=== PATIENT | female | born 1930 | race Caucasian/White ===

== ENCOUNTER 2016-08-14 10:03 | Inpatient (IN) ==
--- NOTE | 2016-08-14 11:18 | EKG Report ---
Stationary ECG Study [facility] ER Test Date: 08/14/2016 11:17:47 AM Pat Name: ALVIN ROJAS Department: Room: Gender: F Project Controller: : 1930 Requested by: Butch Guzman Order Number: [id number] Reading MD: GISELLA MAHARAJ Intervals [place] Rate: 78 P: 60 IN: 215 QRS: 4 QRSD: 138 T: -1 QT: 381 QTc: 414 Interpretive Statements SINUS RHYTHM WITH PROLONGED IN INTERVAL INTRAVENTRICULAR CONDUCTION DELAY POSSIBLE ANTERIOR MYOCARDIAL INFARCTION, OF INDETERMINATE AGE Electronically Signed On 08-14-16 16:34:25 CDT by GISELLA MAHARAJ [id number]
--- NOTE | 2016-08-14 11:22 | XRay Report ---
XR chest 1V portable Indication: Shortness of breath Comparison: Chest x-ray 08/08/2016 Technique: Portable AP chest was performed. Findings: The heart is stable in size, which is borderline. Atherosclerotic calcification of the aortic knob is present. Small hiatal hernia is not excluded. Pulmonary vasculature demonstrates no specific abnormality. Hilar structures demonstrate fairly symmetric appearance. The lungs demonstrate opacification of the left lung base unchanged comparison study that likely in part reflects over shadowing of left-sided breast implant. Surgical changes left axilla appear stable. Bones and soft tissues demonstrate no evidence of acute pathology. Impression: 1. Stable chest. No specific evidence of acute pathology. 08/14/2016 11:19 AM PROCEDURE INTERPRETED AT [facility] DEPARTMENT OF RADIOLOGY Final Report Signed by: Dr. Wicho Schreiber
[2016-08-14 11:28] LABS: Basophils % 0.3 % (0.0-0.8); Eosinophils % 0.7 % (0.00-10.9); Hematocrit 26.2 VOL% (35.7-47.0); Hemoglobin 8.3 GM/DL (12.0-16.0); Immature Granulocytes % 3.5 %; Lymphocytes # 1.1 10*3/uL (1.4-4.0); Lymphocytes % 18.5 % (21.3-54.2); Mean Corpuscular HGB Conc 31.7 GM/DL (32-36); Mean Corpuscular Hemoglobin 28 PG (27-34); Mean Corpuscular Volume 87.3 FL (87-102); Monocytes # 0.5 10*3/uL (0.11-0.8); Monocytes % 8.4 % (1.7-12.7); NRBC # 0.02 10*3/uL; Neutrophils # 3.9 10*3/uL (1.4-7.4); Neutrophils % 68.6 % (38.7-73.9); Platelet Count 198 T/CUMM (130-400); Red Cell Distribution Width 18.7 % (9.3-17.3); White Blood Count 5.7 T/CUMM (4-12)
[2016-08-14 11:35] LABS: Albumin 2.2 G/DL (3.4-5.0); Bilirubin,Total 0.5 MG/DL (0.2-1.0); Calcium 8.7 MG/DL (8.5-10.1); Osmolality,Calculated 274.8 MOS/KG (273-304); Potassium 3.9 MMOL/L (3.5-5.1); Total Protein 4.8 G/DL (6.4-8.3)
[2016-08-14] MEDS ORDERED: ACETAMINOPHEN 325 MG TABLET PO ONE (11:36)
[2016-08-14 11:38] LABS: INR 1.1; PT Patient Result 11.4 SECS
[2016-08-14] MEDS ORDERED: ACETAMINOPHEN 325 MG TABLET ONE (11:40)
[2016-08-14 11:51] LABS: Hypochromasia 1+; Lymphocytes 19 % (20-55); Microcytosis 1+; Ovalocytes Few; Segmented Neutrophils 75 % (50-85); Total Cells Counted 100
[2016-08-14] MEDS ORDERED: MORPHINE 2 MG/1 ML SYRINGE IV PRN (12:33)
[2016-08-14] MEDS ORDERED: ONDANSETRON 4 MG/2 ML VIAL IV PRN (12:33)
[2016-08-14] MEDS ORDERED: SODIUM CHLORIDE 0.9% 250 ML IV PRN (12:33)
--- NOTE | 2016-08-14 13:56 | Emergency Department Note ---
Fredrick Dai Manpreet, am scribing for, and in the presence of, Jroge Green MD 10:28. Peter Dai Doug C, MD, personally performed the services described in this documentation, ascribed by Ish Alcala in my presence, and it is both accurate and complete [id number] . Arrival - Arrival Chief Complaint: GI Bleed/Rectal Stated Complaint: low hematocrit ED Nursing Triage Note: Patient with GI Bleed and current HH 7 AND 24. She was evaluated last weekend with same complaint. Mode of Arrival: Stretcher Limitations: No Limitations Source: Patient, Family - History of Present Illness HPI Narrative: Patient's 86-year-old white female sent from [place] [facility] with history of dropping hemoglobin and hematocrit. Patient was found to have hematocrit 24% on recent lab work of 08/13/2016. Patient states has not had any blood in her stool that she is aware of. She is not having any diarrhea tells me she does have history of constipation. She has a past medical history of CVA and had been on Coumadin in the past but no longer is taking that. She denies history of diverticulitis or colonic polyps. She denies any rectal pain. Onset (ago): week(s) Consistency: intermittent Allergies/Adverse Reactions: Allergies Allergy/AdvReac Type Severity Reaction Status Date / Time fluticasone [From Flonase] AdvReac Unknown/Unable Verified 06/18/16 08:57 to obtain Home Medications: Home Medications Medication Instructions Recorded Confirmed Type Levothyroxine Tab [Synthroid Tab] 150 mcg PO DAILY 09/10/15 08/14/16 History Tiagabine HCl [Gabitril] 4 mg PO BEDTIME 09/10/15 08/14/16 History Tobramycin/Dexamethasone 1 drop BOTH EYES TID 09/11/15 08/14/16 History [Tobramycin/Dexamethasone Oph Susp] Acetaminophen Tab [Tylenol Tab] 650 mg PO Q4H PRN 08/08/16 08/14/16 History Cetirizine Tab [ZyrTEC Tab] 10 mg PO DAILY 08/08/16 08/14/16 History Gabapentin 100 mg PO BID 08/08/16 08/14/16 History Insulin Regular, Human [NovoLIN R] See Protocol SUBCUT DAILY PRN 08/08/16 History Lisinopril 20 mg PO DAILY 08/08/16 08/14/16 History PARoxetine HCl [Paxil] 30 mg PO DAILY 08/08/16 08/14/16 History Polyvinyl Alcohol [Artificial 15 ml BOTH EYES DAILY PRN 08/08/16 08/14/16 History Tears] amLODIPine [Norvasc] 5 mg PO DAILY 08/08/16 08/14/16 History clonazePAM TAB [KlonoPIN] 0.25 mg PO BID 08/08/16 08/14/16 History hydroCHLOROthiazide 12.5 mg PO MOWEFR 08/08/16 08/14/16 History [Hydrochlorothiazide] Loteprednol Etabonate 0.2% 1 drop BOTH EYES BID 08/14/16 08/14/16 History Suspension Opth Melatonin 6 mg PO BEDTIME 08/14/16 08/14/16 History Review of System - Review of System 12 point system: reviewed and no additional remarkable complaints except as stated - Review of System Constitutional: Absent: chills, diaphoresis, fever Respiratory: Absent: respiratory distress Cardiovascular: Absent: chest pain Gastrointestinal: Present: abdominal pain (Left sided), constipation, hematochezia. Absent: nausea, vomiting, diarrhea Genitourinary female: Present: other (Urinary Incontinence). Absent: dysuria, hematuria Musculoskeletal: Absent: back pain Medical,Surgical,& Family Hx - Medical History Cardio: History of: Hypertension Psychological: History of: Anxiety Disorders Neurology: History of: Cerebrovascular Accident, TIA HEENT: History of: Ear Problem ([place]) Endocrine: History of: Diabetes Mellitus (NIDDM), Thyroid Disorder (Graves disease) Respiratory: History of: Pneumonia Genitourinary: History of: Recurring Urinary Tract Infections - Surgical History HEENT Surgeries: Surgical HX of: Thyroid Surgery - Family History Family History: Reports;: Family Cancer, Family Diabetes, Family Heart Disease, Family Hypertension - Social History Smoking Status: Never smoker Frequency of Alcohol Use: None Type of Drug Use: None Exam Vital Signs: Vital Signs Temperature 97.3 F L 08/14/16 10:04 Pulse Rate 83 08/14/16 10:04 Respiratory Rate 16 08/14/16 10:04 Blood Pressure 106/53 08/14/16 10:04 O2 Sat by Pulse Oximetry 97 08/14/16 10:04 - General General appearance: alert - Head Head exam: Present: atraumatic, normocephalic, normal inspection - Eye Eye exam: Present: normal appearance, PERRL, EOMI - ENT ENT exam: Present: normal exam, normal oropharynx, mucous membranes moist, TM's normal bilaterally - Neck Neck exam: Present: normal inspection, full ROM, trachea midline. Absent: tenderness - Chest Chest inspection: Present: normal inspection, symmetric chest wall rise. Absent : tenderness - Respiratory Respiratory exam: Present: normal lung sounds bilaterally. Absent: respiratory distress - Cardiovascular Cardiovascular exam: Present: regular rate, normal rhythm, normal heart sounds. Absent: murmur, rubs, gallop - Abdominal Exam Abdominal exam: Present: tenderness (Tenderness LQ), normal bowel sounds. Absent: soft, distention - Extremities Exam Extremities exam: Present: normal inspection, full ROM. Absent: tenderness - Back Exam Back exam: Present: normal inspection, full ROM. Absent: tenderness - Neurological Exam Neurological exam: Present: alert, oriented X3, CN II-XII intact, motor sensory deficit (Left hemiplegia) - Psychiatric Psychiatric exam: Present: normal affect, normal mood - Skin Skin exam: Present: warm, dry, intact, normal color. Absent: pallor Course Course Narrative: Patient's clinical presentation, laboratory and radiographic findings were discussed with Dr. Yovanny Luke who is covering for Dr. Jemma Leon. Patient will be admitted to her services. Results - Labs CBC & BMP: 08/14/16 10:52 08/14/16 10:52 Lab Results: I have reviewed the patients labs Labs: Laboratory Tests 08/14/16 10:52 WBC 5.7 RBC 3.00 L Hgb 8.3 L Hct 26.2 L MCHC 31.7 L RDW 18.7 H MPV 9.0 L Lymph % (Auto) 18.5 L Lymph # (Auto) 1.1 L Laboratory Tests 08/14/16 08/14/16 08/14/16 10:38 10:52 10:52 INR 1.1 PT Patient/Control Mix 11.4 Circ Anticoag PTT 25.0 Sodium 137 Potassium 3.9 Chloride 103 Carbon Dioxide 26 Glucose 159 H Total Protein 4.8 L Albumin 2.2 L Albumin/Globulin Ratio 0.8 L Blood Type A POSITIVE Antibody Screen Negative Laboratory Tests 08/14/16 10:52 WBC 5.7 RBC 3.00 L Hgb 8.3 L Hct 26.2 L MCHC 31.7 L RDW 18.7 H MPV 9.0 L Lymph % (Auto) 18.5 L Lymph # (Auto) 1.1 L Lymphocytes 19 L - EKG EKG results: interpreted by LAWSON, sinus rhythm (78 bpm), no acute changes - Diagnostic Findings Procedure: Chest x-ray: report reviewed by me (1. Stable chest. No specific evidence of acute pathology.) Disposition Clinical Impression: Symptomatic anemia, GI bleeding Case discussed with: patient, patient's family Disposition: Still a Patient Condition: Stable Time of Disposition: 12:29
[2016-08-14] MEDS: SODIUM CHLORIDE 0.9% 1,000 ML IV SCH (14:38)
[2016-08-14] MEDS: DESITIN 4OZ/NYSTATIN 15 GRAM MIXTURE PASTE TOP SCH ×2 (17:50→21:00)
--- NOTE | 2016-08-14 18:17 | Family Practice History&Phys ---
Assessment and Plan (1) GI bleeding Status: Acute Assessment and plan: 08/14/2016: We will transfuse her crit goes any lower, parameters have been set. We will get a GI consult. She is not on Coumadin at this time and certainly will hold any or any other anticoagulant Current Visit: Yes (2) Symptomatic anemia Status: Acute Assessment and plan: 08/14/2016: We will transfuse based on parameters already set Current Visit: Yes (3) Altered mental status Status: Acute Assessment and plan: 08/14/2016: This is probably related to her anemic state. Current Visit: No (4) GI bleed Status: Acute Current Visit: No History of Present Illness Chief complaint: Weakness, anemia. History of present illness: Ms. Jenkins is a 86 year old female Who is a DNR and comes from the [facility]. She has been feeling very weak and it was noted a few days ago that her hematocrit was about 24. She historically has been on Coumadin but has not been on it lately and her INR is 1.1 today. She was previously on Coumadin for a history of CVA and she has now total left-sided paralysis. She is very alert and oriented and has basically full mental capacities and she is capable of using her right arm and leg. There was some concern that he may have had a GI bleed in the [facility] and although she does not report this, I did do a Hemoccult stool in the emergency room and it was strongly positive. Her hematocrit here is 25. At this time my plan is to go ahead and admit her, transfuse her if creatinine goes any lower and I get a GI consult on her. Please see history below Home Medications Medication Instructions Recorded Confirmed Type Levothyroxine Tab [Synthroid Tab] 150 mcg PO DAILY 09/10/15 08/14/16 History Tiagabine HCl [Gabitril] 4 mg PO BEDTIME 09/10/15 08/14/16 History Tobramycin/Dexamethasone 1 drop BOTH EYES TID 09/11/15 08/14/16 History [Tobramycin/Dexamethasone Oph Susp] Acetaminophen Tab [Tylenol Tab] 650 mg PO Q4H PRN 08/08/16 08/14/16 History Cetirizine Tab [ZyrTEC Tab] 10 mg PO DAILY 08/08/16 08/14/16 History Gabapentin 100 mg PO BID 08/08/16 08/14/16 History Insulin Regular, Human [NovoLIN R] See Protocol SUBCUT DAILY PRN 08/08/16 History Lisinopril 20 mg PO DAILY 08/08/16 08/14/16 History PARoxetine HCl [Paxil] 30 mg PO DAILY 08/08/16 08/14/16 History Polyvinyl Alcohol [Artificial 15 ml BOTH EYES DAILY PRN 08/08/16 08/14/16 History Tears] amLODIPine [Norvasc] 5 mg PO DAILY 08/08/16 08/14/16 History clonazePAM TAB [KlonoPIN] 0.25 mg PO BID 08/08/16 08/14/16 History hydroCHLOROthiazide 12.5 mg PO MOWEFR 08/08/16 08/14/16 History [Hydrochlorothiazide] Loteprednol Etabonate 0.2% 1 drop BOTH EYES BID 08/14/16 08/14/16 History Suspension Opth Melatonin 6 mg PO BEDTIME 08/14/16 08/14/16 History Allergies Allergy/AdvReac Type Severity Reaction Status Date / Time fluticasone [From Flonase] AdvReac Unknown/Unable Verified 06/18/16 08:57 to obtain - EENT Eyes: Present: other (Admits she has very dry eyes) Ears: Present: decreased hearing Nose, mouth and throat: Absent: epistaxis, lip swelling - Cardiovascular Cardiovascular: Absent: chest pain at rest - Respiratory Respiratory: Absent: cough - Gastrointestinal Gastrointestinal: Present: other (Has black stools and is heme positive in the ER) - Musculoskeletal Musculoskeletal: Present: limited range of motion - Neurological Neurological: Present: paresthesias (On the left) Medical,Surgical,& Family Hx - Medical History Cardio: History of: Hypertension, Cardiovascular Problems (high cholesterol) Psychological: History of: Anxiety Disorders Neurology: History of: Cerebrovascular Accident, TIA HEENT: History of: Ear Problem ([place]) Endocrine: History of: Diabetes Mellitus (NIDDM), Thyroid Disorder (Graves disease) Respiratory: History of: Pneumonia Genitourinary: History of: Recurring Urinary Tract Infections Reproductive: History of: Reproductive Problems (breast cancer) - Surgical History HEENT Surgeries: Surgical HX of: Thyroid Surgery Reproductive Surgeries: Comment Only: Breast Surgery (reconstructive surgery r/t breast cancer) - Family History Family History: Reports;: Family Cancer, Family Diabetes, Family Heart Disease, Family Hypertension - Social History Smoking Status: Never smoker Frequency of Alcohol Use: None Type of Drug Use: None Exam - Constitutional Vitals: Period Temp Pulse Resp BP Sys/[place] Pulse Ox Last 24 Hr 97.6 F 70 16-16 86/40 94 Exam: Generally elderly female she is very cognitive considering her situation HEENT neck is supple trachea midline Cardiovascular 1/6 systolic ejection murmur no gallop or rub Lungs few basilar rales but generally clear she is not complaining of significant shortness of breath Abdomen soft nontender positive bowel sounds. Positive stool Hemoccult Extremities left upper and lower extremity nonfunctional patient is able to move the right side Neurologically as noted above Results - Labs CBC & BMP: 08/14/16 14:37 08/14/16 10:52
[2016-08-14 18:57] LABS: Hematocrit 27.5 VOL% (35.7-47.0); Hemoglobin 8.6 GM/DL (12.0-16.0)
[2016-08-14] MEDS: PANTOPRAZOLE 40 MG VIAL IV SCH (21:00)
[2016-08-14] MEDS: TOBRAMYCIN/DEXAMETHASONE 0.3%-0.1% OPH SUSP 2.5 ML BOTTLE BOTH EYES SCH (21:00)
[2016-08-14] MEDS: INSULIN REGULAR 100 UNIT/ML SUBCUT PRN (21:01)
[2016-08-14] MEDS: ACETAMINOPHEN 325 MG TABLET PO PRN (21:02)
[2016-08-14] MEDS: MELATONIN 3 MG TABLET PO SCH (21:02)
[2016-08-14] MEDS: GABAPENTIN 100 MG CAPSULE PO SCH (21:02)
[2016-08-14] MEDS: clonazePAM 0.5 MG TABLET PO SCH (21:03)
[2016-08-15 01:15] LABS: Basophils % 0.2 % (0.0-0.8); Eosinophils # 0.1 10*3/uL (0.0-0.87); Eosinophils % 1.2 % (0.00-10.9); Hematocrit 22.9 VOL% (35.7-47.0); Hemoglobin 7.2 GM/DL (12.0-16.0); Immature Granulocytes % 4.5 %; Immature Granulocytes Absolute 0.19 #; Lymphocytes % 24.3 % (21.3-54.2); Mean Corpuscular HGB Conc 31.4 GM/DL (32-36); Mean Corpuscular Hemoglobin 27 PG (27-34); Mean Corpuscular Volume 86.1 FL (87-102); Mean Platelet Volume 8.8 FL (9.6-12.0); Monocytes # 0.4 10*3/uL (0.11-0.8); Neutrophils # 2.6 10*3/uL (1.4-7.4); Neutrophils % 60.8 % (38.7-73.9); Platelet Count 156 T/CUMM (130-400); Red Blood Count 2.66 MC/CUMM (3.8-5.5); Red Cell Distribution Width 18.4 % (9.3-17.3); White Blood Count 4.2 T/CUMM (4-12)
[2016-08-15 01:40] LABS: Calcium 7.9 MG/DL (8.5-10.1); Osmolality,Calculated 282.1 MOS/KG (273-304); Potassium 3.8 MMOL/L (3.5-5.1)
[2016-08-15 02:14] LABS: Eosinophils 3 % (0-10); Lymphocytes 13 % (20-55); Metamyelocytes 1 %; Myelocytes 4 %; Total Cells Counted 100
[2016-08-15 02:16] LABS: Elliptocytes 1+; Platelet Estimate Normal; Polychromasia Few
[2016-08-15 02:17] LABS: Segmented Neutrophils 71 % (50-85)
[2016-08-15] MEDS: SODIUM CHLORIDE 0.9% 1,000 ML IV SCH ×2 (02:36→15:16)
--- NOTE | 2016-08-15 09:29 | Gastrointestinal Consult Note ---
Assessment and Plan - Time spent with patient Time spent with patient: Greater than 30 minutes (1) Hematochezia Status: Acute Current Visit: Yes (2) Symptomatic anemia Status: Acute Current Visit: Yes (3) Other specified counseling Status: Acute Current Visit: Yes History of Present Illness History of present illness: Ms. Jenkins is a 86 year old female Home Medications Medication Instructions Recorded Confirmed Type Levothyroxine Tab [Synthroid Tab] 150 mcg PO DAILY 09/10/15 08/14/16 History Tiagabine HCl [Gabitril] 4 mg PO BEDTIME 09/10/15 08/14/16 History Tobramycin/Dexamethasone 1 drop BOTH EYES TID 09/11/15 08/14/16 History [Tobramycin/Dexamethasone Oph Susp] Acetaminophen Tab [Tylenol Tab] 650 mg PO Q4H PRN 08/08/16 08/14/16 History Cetirizine Tab [ZyrTEC Tab] 10 mg PO DAILY 08/08/16 08/14/16 History Gabapentin 100 mg PO BID 08/08/16 08/14/16 History Insulin Regular, Human [NovoLIN R] See Protocol SUBCUT DAILY PRN 08/08/16 History Lisinopril 20 mg PO DAILY 08/08/16 08/14/16 History PARoxetine HCl [Paxil] 30 mg PO DAILY 08/08/16 08/14/16 History Polyvinyl Alcohol [Artificial 15 ml BOTH EYES DAILY PRN 08/08/16 08/14/16 History Tears] amLODIPine [Norvasc] 5 mg PO DAILY 08/08/16 08/14/16 History clonazePAM TAB [KlonoPIN] 0.25 mg PO BID 08/08/16 08/14/16 History hydroCHLOROthiazide 12.5 mg PO MOWEFR 08/08/16 08/14/16 History [Hydrochlorothiazide] Loteprednol Etabonate 0.2% 1 drop BOTH EYES BID 08/14/16 08/14/16 History Suspension Opth Melatonin 6 mg PO BEDTIME 08/14/16 08/14/16 History Allergies Allergy/AdvReac Type Severity Reaction Status Date / Time fluticasone [From Flonase] AdvReac Unknown/Unable Verified 06/18/16 08:57 to obtain Medical,Surgical,& Family Hx - Medical History Cardio: History of: Hypertension, Cardiovascular Problems (high cholesterol) Psychological: History of: Anxiety Disorders Neurology: History of: Cerebrovascular Accident, TIA HEENT: History of: Ear Problem ([place]) Endocrine: History of: Diabetes Mellitus (NIDDM), Thyroid Disorder (Graves disease) Respiratory: History of: Pneumonia Genitourinary: History of: Recurring Urinary Tract Infections Reproductive: History of: Reproductive Problems (breast cancer) - Surgical History HEENT Surgeries: Surgical HX of: Thyroid Surgery Reproductive Surgeries: Comment Only: Breast Surgery (reconstructive surgery r/t breast cancer) - Family History Family History: Reports;: Family Cancer, Family Diabetes, Family Heart Disease, Family Hypertension - Social History Smoking Status: Never smoker Frequency of Alcohol Use: None Type of Drug Use: None Exam - Constitutional Vitals: Period Temp Pulse Resp BP Sys/[place] Pulse Ox Last 24 Hr 96.8 F-97.7 F 50-82 16-20 86-112/34-62 94-100 Results - Labs CBC & BMP: 08/15/16 12:40 08/15/16 01:07 Note Addendum: PLEASE NOTE -- automatic citation of patient information is unavoidable in this electronic note. I have made a reasonable effort to review the information cited , but it is not a part of my evaluation, impression, or recommendation unless specifically discussed in the dictated text that follows. As well, voice recognition software was used in the creation of this clinical note. Reasonable effort was made to identify and correct gross errors. Despite proofreading, errors in platform builder may be present, including nonsense verbiage at times. If you encounter such an error, please contact me at for discussion and correction. -- Yemi Chief complaint: symptomatic anemia History of present illness: This is a new patient, a 86-year-old female seen by consultation for evaluation of symptomatic anemia. The patient is admitted to the telemetry floor under the care of Dr. Jemma Leon with a primary diagnosis of gastrointestinal bleeding. The [facility] with primary complaint of feeling weak. Evaluation at that time revealed anemia with hemoglobin of 8 g/dL. the patient denied a history of overt gastrointestinal bleeding but hemoccult was taken and was strongly positive. Since her admission she has been transfused two units of packed red blood cells but otherwise treated conservatively. Overt bleeding has not been noted. She last had colonoscopy about five years ago with Dr. Randhawa and had polyps removed at that time. She reports that she has been having epigastric/ lift upper quadrant discomfort and wonders if she has had an ulcer. She doesn't believe she has had an ulcer in the past. She takes an Aleve occasionally for headache this is infrequent. She has not had nausea or vomiting. She feels fairly comfortable at present with no pain whatsoever. [Patient denies fever, chills, night sweats, rigors, headache, neck pain, visual changes, redness of the eyes, dysphagia, odynophagia, difficulty chewing , chest pain, shortness of breath, weight loss, nausea, vomiting, regurgitation , hematemesis, diarrhea, hematochezia, melena, proctalgia, constipation, change in bowel pattern generally, dysuria, skin changes, temperature regulation issues , flushing, easy bleeding/bruising, musculoskeletal pain, mental status change, numbness/weakness in the extremities, yellowing of the eyes/skin, cutaneous eruptions, family history of gastrointestinal cancer and colon polyps, and other complaints in general.] Review of systems: 12 point review of systems was negative except as documented above. Outpatient medications: hydrochlorothiazide, Klonopin, Norvasc, Gabatril, Paxil , melatonin, lisinopril, Synthroid, insulin, gabapentin, Zyrtec, Tylenol Inpatient medications: Tylenol, Zyrtec, Klonopin, gabapentin, insulin, Synthroid , melatonin, morphine, Gabatril, Zofran, Protonix, Paxil, normal saline infusion Past Medical History: hypertension, hyperlipidemia, anxiety disorder, cerebrovascular accident, transient ischemic attack, diabetes, Graves' disease, pneumonia, recurrent urinary tract infection, breast cancer Social history: [Negative] tobacco. [Negative] Alcohol Family history: no gastrointestinal cancersPatient denies fever, chills, night sweats, rigors, headache, neck pain, visual changes, redness of the eyes, dysphagia, odynophagia, difficulty chewing, chest pain, shortness of breath, weight loss, nausea, vomiting, regurgitation, hematemesis, diarrhea, hematochezia, melena, proctalgia, constipation, change in bowel pattern generally, dysuria, skin changes, temperature regulation issues, flushing, easy bleeding/bruising, musculoskeletal pain, mental status change, numbness/ weakness in the extremities, yellowing of the eyes/skin, cutaneous eruptions, family history of gastrointestinal cancer and colon polyps, and other complaints in general.negativeNegative Physical examination: Vital Signs: Current vital signs reviewed and documented above. General Appearance: well-appearing. Not acutely ill. Head: Normocephalic. Neck: Palpation of the neck revealed no abnormalities. Eyes: No scleral icterus. No scleral injection. No conjunctival pallor. Oral Cavity: Odor of breath was normal. No drooling was observed. Lips showed no abnormalities. Floor of the mouth showed no abnormalities. Pharynx: Oropharynx was normal. Lungs: Respiration rhythm and depth was normal. Cardiovascular: Heart rate and rhythm were normal. No murmurs were appreciated. Abdomen: abdomen was not distended. Abdominal palpation revealed no tenderness and no hepatosplenomegaly. Ascites was not discovered. Abdominal auscultation revealed positive bowel sounds. Musculoskeletal System: Musculoskeletal system was grossly normal. Neurological: level of consciousness was normal. Speech was normal. Skin: General appearance was normal. Color and pigmentation were normal. No skin lesions. Laboratory: white blood count 4.2, hemoglobin 7.2, hematocrit 22.9, platelets 156, ALT 37, AST 29, total bilirubin 0.5, alkaline phosphatase 64, albumin 2.2, total protein 4.8 Radiology: reviewed Impressions: 1. Gastrointestinal bleeding, indeterminate -- the differential diagnosis includes diverticular bleeding, infectious/inflammatory enterocolitis, arteriovenous malformation, hemorrhoidal bleeding, colon polyps (including cancer), and upper gastrointestinal bleeding. I recommend serial hemoglobin and hematocrit monitoring with further transfusion as indicated. I recommend aggressive crystalloid resuscitation as indicated. I recommend intravenous proton pump inhibitor. We will plan upper endoscopy tomorrow to ensure no evidence of gastric or duodenal ulcer. Patient may also need colonoscopy dependent on clinical progress and assessment of risk associated with comorbid conditions. If bleeding continues, this will likely need to be done during this admission. If not, we could consider risk related deferral or outpatient colonoscopy once patient is adequately resuscitated and transfused. 2. Symptomatic anemia -- the patient has not been chronically anemic so this would appear to be acute or sub-acute blood loss. There is recent documentation of Coumadin use which has apparently been stopped. I recommend continued monitoring of blood counts as discussed above with further transfusion as indicated. We will have to decide, based on patient's wishes, how aggressive to be in searching for the source of blood loss. 3. Other specified counseling -- The patient was seen for greater than 30 minutes. The patient was counseled for greater than 50% of this time regarding differential diagnosis, likely diagnosis, diagnostic and therapeutic alternatives, risks/benefits/alternatives of medications and procedures, and plan of care generally. The patient expressed understanding and wishes to proceed. Recommendations: -- continued crystalloid resuscitation -- continued monitoring of blood counts with further transfusion as indicated -- continued proton pump inhibitor -- upper endoscopy tomorrow -- patient may need colonoscopy if no finding on upper endoscopy -- thank you for this consultation. Dr. Randhawa will assume G.I. care for this patient tomorrow.
[2016-08-15] MEDS: PANTOPRAZOLE 40 MG VIAL IV SCH (09:33)
--- NOTE | 2016-08-15 09:33 | Family Practice Progress Note ---
Family Practice - PN: Subj Interval history: Patient seen this morning. She is doing fairly well but she was noted to have hemoglobin hematocrit 722. She is being transfused 2 units of blood at present. She is alert and oriented answers all questions. GI consult obtained and appreciate their assistance. Will follow along Exam (Progress Note) - Constitutional Vitals: Period Temp Pulse Resp BP Sys/Bettencourt Pulse Ox Last 24 Hr 96.8 F-97.7 F 50-82 16-20 86-112/34-62 94-100 Exam: Generally elderly female she is very cognitive considering her situation HEENT neck is supple trachea midline Cardiovascular 1/6 systolic ejection murmur no gallop or rub Lungs few basilar rales but generally clear she is not complaining of significant shortness of breath Abdomen soft nontender positive bowel sounds. Positive stool Hemoccul Neurologically as noted above Results - Labs CBC & BMP: 08/15/16 01:07 08/15/16 01:07 Assessment and Plan (1) GI bleeding Status: Acute Assessment and plan: 08/14/2016: We will transfuse her crit goes any lower, parameters have been set. We will get a GI consult. She is not on Coumadin at this time and certainly will hold any or any other anticoagulant 08/15/2016 patient is currently being transfused Current Visit: Yes (2) Symptomatic anemia Status: Acute Assessment and plan: 08/14/2016: We will transfuse based on parameters already set Current Visit: Yes (3) Altered mental status Status: Acute Assessment and plan: 08/14/2016: This is probably related to her anemic state. Current Visit: No (4) GI bleed Status: Acute Current Visit: No
[2016-08-15] MEDS: LEVOTHYROXINE 150 MCG TABLET PO SCH (09:37)
[2016-08-15] MEDS: GABAPENTIN 100 MG CAPSULE PO SCH ×2 (09:38→22:35)
[2016-08-15] MEDS: PARoxetine 20 MG TABLET PO SCH (09:38)
[2016-08-15] MEDS: CETIRIZINE 10 MG TABLET PO SCH (09:38)
[2016-08-15] MEDS: DESITIN 4OZ/NYSTATIN 15 GRAM MIXTURE PASTE TOP SCH ×2 (09:39→22:34)
[2016-08-15] MEDS: clonazePAM 0.5 MG TABLET PO SCH ×2 (09:39→22:35)
[2016-08-15] MEDS: TOBRAMYCIN/DEXAMETHASONE 0.3%-0.1% OPH SUSP 2.5 ML BOTTLE BOTH EYES SCH ×3 (09:39→22:34)
[2016-08-15 12:46] LABS: Basophils % 0.5 % (0.0-0.8); Eosinophils # 0.1 10*3/uL (0.0-0.87); Eosinophils % 0.9 % (0.00-10.9); Hematocrit 34.1 VOL% (35.7-47.0); Immature Granulocytes % 2.4 %; Immature Granulocytes Absolute 0.14 #; Lymphocytes # 1.6 10*3/uL (1.4-4.0); Lymphocytes % 27.3 % (21.3-54.2); Mean Corpuscular HGB Conc 32.3 GM/DL (32-36); Mean Corpuscular Hemoglobin 28 PG (27-34); Mean Corpuscular Volume 85.7 FL (87-102); Mean Platelet Volume 8.8 FL (9.6-12.0); Monocytes # 0.5 10*3/uL (0.11-0.8); Monocytes % 8.4 % (1.7-12.7); Neutrophils # 3.5 10*3/uL (1.4-7.4); Neutrophils % 60.5 % (38.7-73.9); Platelet Count 156 T/CUMM (130-400); Red Cell Distribution Width 18.4 % (9.3-17.3)
[2016-08-15 12:58] LABS: Red Blood Count 3.98 MC/CUMM (3.8-5.5); White Blood Count 5.8 T/CUMM (4-12)
[2016-08-15 13:12] LABS: Eosinophils 1 % (0-10); Lymphocytes 26 % (20-55); Nucleated Red Blood Cells 1 (0-5); Segmented Neutrophils 62 % (50-85); Total Cells Counted 100
[2016-08-15 13:13] LABS: Hypochromasia Slight; Microcytosis 1+; Platelet Estimate Adequate
[2016-08-15] MEDS: POLYVINYL ALCOHOL 1.4% OPH SOLN 15 ML BOTTLE BOTH EYES PRN (15:15)
[2016-08-15] MEDS: INSULIN REGULAR 100 UNIT/ML SUBCUT PRN (16:48)
[2016-08-15] MEDS: MELATONIN 3 MG TABLET PO SCH (22:34)
[2016-08-15] MEDS: ACETAMINOPHEN 325 MG TABLET PO PRN (22:34)
[2016-08-16] MEDS: PANTOPRAZOLE 40 MG VIAL IV SCH ×3 (01:29→21:13)
[2016-08-16] MEDS: SODIUM CHLORIDE 0.9% 1,000 ML IV SCH ×2 (04:13→18:53)
[2016-08-16 07:02] LABS: Basophils % 0.5 % (0.0-0.8); Eosinophils # 0.1 10*3/uL (0.0-0.87); Eosinophils % 1.6 % (0.00-10.9); Hematocrit 31.2 VOL% (35.7-47.0); Immature Granulocytes % 2.1 %; Immature Granulocytes Absolute 0.09 #; Lymphocytes # 1.1 10*3/uL (1.4-4.0); Lymphocytes % 25.9 % (21.3-54.2); Mean Corpuscular HGB Conc 32.1 GM/DL (32-36); Mean Corpuscular Hemoglobin 27 PG (27-34); Mean Corpuscular Volume 85.2 FL (87-102); Mean Platelet Volume 8.9 FL (9.6-12.0); Monocytes # 0.4 10*3/uL (0.11-0.8); Monocytes % 9.3 % (1.7-12.7); Neutrophils # 2.6 10*3/uL (1.4-7.4); Neutrophils % 60.6 % (38.7-73.9); Platelet Count 145 T/CUMM (130-400); Red Blood Count 3.66 MC/CUMM (3.8-5.5); Red Cell Distribution Width 18.5 % (9.3-17.3); White Blood Count 4.3 T/CUMM (4-12)
[2016-08-16 07:35] LABS: Eosinophils 3 % (0-10); Hypochromasia 1+; Lymphocytes 19 % (20-55); Microcytosis Slight; Ovalocytes Slight; Platelet Estimate Normal; Segmented Neutrophils 73 % (50-85); Total Cells Counted 100
[2016-08-16] MEDS: TOBRAMYCIN/DEXAMETHASONE 0.3%-0.1% OPH SUSP 2.5 ML BOTTLE BOTH EYES SCH ×3 (09:47→21:16)
[2016-08-16] MEDS: POLYVINYL ALCOHOL 1.4% OPH SOLN 15 ML BOTTLE BOTH EYES PRN ×3 (09:47→23:25)
[2016-08-16] MEDS: DESITIN 4OZ/NYSTATIN 15 GRAM MIXTURE PASTE TOP SCH ×2 (09:49→21:16)
--- NOTE | 2016-08-16 11:08 | Physician Query Form ---
CLICK EDIT DOCUMENT TO SELECT QUERY ANSWER --> OK --> SIGN Kim Schreiber RN, CCDS Certified Clinical [employer] Grinder W) [phone] (f) [phone] [email or web address]: Make your selection(s) from the choices in EACH section by typing an "x" and enter comments in the comment section. Please use your independent medical judgment in providing your response. This request does not imply that any particular answer is desired or expected. CLINICAL INDICATORS: (Providers should not edit this section) The medical record indicates that the patient was admitted with GI bleeding, symptomatic anemia, HH dropped to 7.2#/22.9 on the and the patient was given 2 units of blood. Based on the above, could you clarify which of the following conditions you are evaluating, treating, and/or monitoring? (x ) Blood loss anemia (x ) acute ( ) chronic ( ) acute on chronic ( ) Acute blood loss anemia on baseline chronic anemia ( ) Acute blood loss anemia as a complication of a procedure ( ) Iron deficiency anemia not associated with blood loss ( ) Dilutional anemia due to IV fluids ( ) Anemia due to chemotherapy ( ) Anemia due to neoplastic disease ( ) Anemia due to chronic kidney disease ( ) Pernicious anemia ( ) Aplastic anemia ( ) Hemolytic anemia ( ) immune ( ) non-immune - please specify cause: ( ) Anemia due to other condition, please specify: ( ) Clinically unable to determine COMMENTS: PLEASE ALSO DOCUMENT RESPONSE IN PROGRESS NOTES AND/OR DISCHARGE SUMMARY Use of terms such as suspected, likely, or probable (associated with a specific diagnosis that is being evaluated, monitored, or treated as if it exists) are acceptable and can be restated in the discharge summary if not ruled out. MTDD
[2016-08-16] MEDS ORDERED: PROPOFOL 200 MG/20 ML VIAL IV ONE (11:15)
[2016-08-16] MEDS: clonazePAM 0.5 MG TABLET PO SCH ×2 (11:17→21:15)
[2016-08-16] MEDS: GABAPENTIN 100 MG CAPSULE PO SCH ×2 (11:18→21:14)
[2016-08-16] MEDS: LEVOTHYROXINE 150 MCG TABLET PO SCH (11:18)
[2016-08-16] MEDS: CETIRIZINE 10 MG TABLET PO SCH (11:18)
[2016-08-16] MEDS: PARoxetine 20 MG TABLET PO SCH (11:18)
--- NOTE | 2016-08-16 11:25 | History and Physical Update ---
History and Physical Update - Physical Exam Mental Status: alert and oriented Heart: regular rate and rhythm Lung: clear to auscultation Abdomen: within normal limits Vitals: within normal limits
--- NOTE | 2016-08-16 11:28 | Operative Note ---
Date of procedure: 08/16/16 Pre-op diagnosis: GI bleed Procedure: EGD 86-year-old female with GI bleed now for upper endoscopy to further evaluate with complaints of epigastric pain. Informed symptoms obtained patient She was sedated with MAC anesthesia anesthesia protocol. Patient placed in left lateral decubitus position the Olympus flexible video upper endoscope was inserted into the oral cavity under direct vision the esophagus was intubated. Findings: Esophagus-normal proximal esophageal mucosa of the distal third of the esophagus there is severe erosive esophagitis. A large hiatal hernia is present with suspected possible paraesophageal we were able to reduce this. Stomach-normal insufflation normal mucosa approximately 40% of the stomach is below the diaphragm. Pylorus-normal Duodenum-normal bulb duodenum to the third portion of duodenum. The procedure was terminated placed our procedure well she is discharged recovery in good condition. Postop diagnosis: 1. Severe erosive esophagitis-suspect this is a source for her epigastric pain and blood the stool. Continue IV PPI treatment and monitor H&H. 2. Possible paraesophageal hernia high risk for surgery given the advanced age but will need to discuss possibility of hernia repair and consider upper GI if patient and family wish to proceed. Will reassess symptoms over the next few days to make a decision. Anesthesia: [facility] Surgeon / Physician: Suhas Randhawa Estimated blood loss: none Specimens: none sent Condition: stable Disposition: post procedure unit Results - Labs CBC & BMP: 08/16/16 06:46 08/15/16 01:07 Discharge Plan - Discharge Medications No Action Levothyroxine Tab [Synthroid Tab] 150 mcg PO DAILY Tiagabine HCl [Gabitril] 4 mg PO BEDTIME Tobramycin/Dexamethasone [Tobramycin/Dexamethasone Oph Susp] 1 drop BOTH EYES TID Acetaminophen Tab [Tylenol Tab] 650 mg PO Q4H PRN PRN Reason: Pain Cetirizine Tab [ZyrTEC Tab] 10 mg PO DAILY clonazePAM TAB [KlonoPIN] 0.25 mg PO BID Gabapentin 100 mg PO BID hydroCHLOROthiazide [Hydrochlorothiazide] 12.5 mg PO MOWEFR Insulin Regular, Human [NovoLIN R] See Protocol SUBCUT DAILY PRN PRN Reason: Glucose Management Lisinopril 20 mg PO DAILY PARoxetine HCl [Paxil] 30 mg PO DAILY Polyvinyl Alcohol [Artificial Tears] 15 ml BOTH EYES DAILY PRN PRN Reason: Dry Eyes Loteprednol Etabonate 0.2% Suspension Opth 1 drop BOTH EYES BID Melatonin 6 mg PO BEDTIME amLODIPine [Norvasc] 5 mg PO DAILY - Follow Up or Referral - Forms/Instructions
--- NOTE | 2016-08-16 12:07 | Anesthesia Post-Op ---
Anesthesia Post OP - Post Ansesthetic Evaluation Patient seen in post op: Yes Resp: within normal limits CV: within normal limits Mental: within normal limits Temp: within normal limits [id number]: within normal limits Nausea and Vomiting: within normal limits Pain: within normal limits
--- NOTE | 2016-08-16 18:32 | Internal Med Progress Note ---
Assessment and Plan (1) History of stroke Status: Chronic Current Visit: Yes (2) Hypothyroid Status: Chronic Current Visit: Yes Qualifiers: Hypothyroidism type: acquired Qualified Code(s): E03.9 - Hypothyroidism, unspecified (3) Generalized weakness Status: Chronic Current Visit: Yes (4) GI bleeding Status: Acute Current Visit: Yes Qualifiers: GI bleed type/associated pathology: gastritis Gastritis type: acute gastritis Qualified Code(s): K29.01 - Acute gastritis with bleeding Internal Medicine - PN: Subj Interval history: This is an 86 year old female with history of HTN, DM, old stroke, hypothyroid, OA, generalized debility and weakness, who presented to ER with acute GI bleed. Upper endoscopy per Dr. Randhawa revealed erosive gastritis, large hiatal hernia and paraesophageal hernia. She had a stroke earlier this month and has been in [facility] for rehab. She was once anticoagulated on Coumadin, but this was discontinued. Exam (Progress Note) - Constitutional Vitals: Period Temp Pulse Resp BP Sys/Bettencourt Pulse Ox Last 24 Hr 97.4 F-97.9 F 62-77 14-24 104-148/53-69 91-97 General appearance: no acute distress - Head Head exam: Present: normocephalic - Eye Eye exam: Present: EOMI - Respiratory Respiratory exam: Present: clear to auscultation bilaterally. Absent: rales, rhonchi, wheezes - Cardiovascular Cardiovascular exam: Present: regular rate and rhythm - GI/Abdominal GI/Abdominal exam: Present: soft. Absent: tenderness - Extremities Exam Extremities exam: Absent: edema - Neurological Exam Neurological exam: Present: alert, oriented X3, CN II-XII intact - Psychiatric Psychiatric exam: Present: normal affect, normal mood - Skin Skin exam: Present: warm, dry Results - Labs CBC & BMP: 08/17/16 03:56 08/17/16 03:56 - Diagnostic Findings Procedure: Chest x-ray: image reviewed by me, report reviewed by me
[2016-08-16] MEDS: ALBUTEROL/IPRATROPIUM 3 ML NEB RESP TX SCH (19:25)
[2016-08-16] MEDS: INSULIN REGULAR 100 UNIT/ML SUBCUT PRN (21:13)
[2016-08-16] MEDS: MELATONIN 3 MG TABLET PO SCH (21:14)
[2016-08-16] MEDS: ACETAMINOPHEN 325 MG TABLET PO PRN (21:15)
[2016-08-17] MEDS: ALBUTEROL/IPRATROPIUM 3 ML NEB RESP TX SCH ×4 (00:34→19:15)
[2016-08-17 05:12] LABS: Basophils % 0.5 % (0.0-0.8); Eosinophils # 0.1 10*3/uL (0.0-0.87); Eosinophils % 1.9 % (0.00-10.9); Hemoglobin 10.1 GM/DL (12.0-16.0); Immature Granulocytes % 1.9 %; Immature Granulocytes Absolute 0.08 #; Lymphocytes # 1.5 10*3/uL (1.4-4.0); Lymphocytes % 36.5 % (21.3-54.2); Mean Corpuscular HGB Conc 32.6 GM/DL (32-36); Mean Corpuscular Hemoglobin 28 PG (27-34); Mean Corpuscular Volume 85.4 FL (87-102); Mean Platelet Volume 9.7 FL (9.6-12.0); Monocytes # 0.5 10*3/uL (0.11-0.8); Monocytes % 10.8 % (1.7-12.7); Neutrophils % 48.4 % (38.7-73.9); Platelet Count 125 T/CUMM (130-400); Red Blood Count 3.63 MC/CUMM (3.8-5.5); Red Cell Distribution Width 18.4 % (9.3-17.3); White Blood Count 4.2 T/CUMM (4-12)
[2016-08-17 05:54] LABS: Albumin 2.1 G/DL (3.4-5.0); Bilirubin,Total 0.9 MG/DL (0.2-1.0); Calcium 8.4 MG/DL (8.5-10.1); Magnesium 1.6 MG/DL (1.8-2.4); Osmolality,Calculated 282.8 MOS/KG (273-304); Potassium 3.2 MMOL/L (3.5-5.1); Risk Ratio 3.97; Total Protein 4.2 G/DL (6.4-8.3)
[2016-08-17] MEDS ORDERED: POTASSIUM CHLORIDE 20 MEQ TABLET PO PRN (08:15)
[2016-08-17] MEDS ORDERED: POTASSIUM CHLORIDE 20 MEQ TABLET PO ONE (08:15)
[2016-08-17] MEDS ORDERED: MAGNESIUM SULF RIDER 2 GM in PREMIX 1 EACH IV ONE (08:15)
[2016-08-17] MEDS: PARoxetine 20 MG TABLET PO SCH (08:49)
[2016-08-17] MEDS: PANTOPRAZOLE 40 MG VIAL IV SCH ×2 (08:49→20:24)
[2016-08-17] MEDS: clonazePAM 0.5 MG TABLET PO SCH ×2 (08:49→20:28)
[2016-08-17] MEDS: DESITIN 4OZ/NYSTATIN 15 GRAM MIXTURE PASTE TOP SCH ×2 (08:50→20:28)
[2016-08-17] MEDS: TOBRAMYCIN/DEXAMETHASONE 0.3%-0.1% OPH SUSP 2.5 ML BOTTLE BOTH EYES SCH ×3 (08:50→20:28)
[2016-08-17] MEDS: GABAPENTIN 100 MG CAPSULE PO SCH ×2 (08:50→20:27)
[2016-08-17] MEDS: LEVOTHYROXINE 150 MCG TABLET PO SCH (08:50)
[2016-08-17] MEDS: CETIRIZINE 10 MG TABLET PO SCH (08:50)
--- NOTE | 2016-08-17 10:27 | Gastrointestinal Progress Note ---
<Azra Crespo - Last Filed: 08/17/16 10:24> Assessment and Plan (1) GI bleeding Status: Acute Assessment and plan: 08/17-no further bleeding reported. Hemoglobin holding at 10. Tolerating diet. EGD findings noted. Plan an addendum to follow by Dr. Randhawa. Current Visit: Yes Qualifiers: GI bleed type/associated pathology: gastritis Gastritis type: acute gastritis Qualified Code(s): K29.01 - Acute gastritis with bleeding Gastroenterology - PN: Subj Interval history: CC: GI bleed Patient is seen awake and alert lying in bed. States she is feeling some better today. Denies any abdominal pain, nausea or vomiting. EGD with findings of severe erosive esophagitis. She is tolerating her diet well at this time however does not wish to advance her diet at present time. Abdomen is soft, nontender. Hemoglobin is stable at 10. ROS: Denies shortness of breath or chest pain Exam (Progress Note) - Constitutional Vitals: Period Temp Pulse Resp BP Sys/Bettencourt Pulse Ox Last 24 Hr 97.5 F-98.6 F 57-75 14-24 112-148/53-88 91-99 General appearance: normal weight, no acute distress - Head Head exam: Present: normal inspection, normocephalic - Eye Eye exam: Present: other (Lids and conjunctive are unremarkable). Absent: scleral icterus - ENT ENT exam: Present: normal exam, normal oropharynx - Neck Neck exam: Present: normal inspection - Respiratory Respiratory exam: Present: clear to auscultation bilaterally. Absent: rales, rhonchi, wheezes - Cardiovascular Cardiovascular exam: Present: regular rate and rhythm. Absent: diastolic murmur , JVD, systolic murmur - GI/Abdominal GI/Abdominal exam: Present: normal bowel sounds, soft. Absent: ascites, distended, mass, organomegaly, tenderness - Extremities Exam Extremities exam: Present: normal inspection, full ROM - Back Exam Back exam: Present: normal inspection - Neurological Exam Neurological exam: Present: alert, oriented X3 - Psychiatric Psychiatric exam: Present: normal affect, normal mood - Skin Skin exam: Present: normal color, warm, dry Results - Labs CBC & BMP: 08/17/16 03:56 08/17/16 03:56 Lab Results: I have reviewed the past 24 hour labs <Suhas Randhawa - Last Filed: 08/17/16 12:24> Exam (Progress Note) - Constitutional Vitals: Period Temp Pulse Resp BP Sys/Bettencourt Pulse Ox Last 24 Hr 97.5 F-98.6 F 57-75 16-22 114-148/60-88 91-99 Results - Labs CBC & BMP: 08/17/16 03:56 08/17/16 03:56
[2016-08-17] MEDS: INSULIN REGULAR 100 UNIT/ML SUBCUT PRN (12:41)
[2016-08-17] MEDS: ACETAMINOPHEN 325 MG TABLET PO PRN ×2 (12:43→18:02)
--- NOTE | 2016-08-17 16:11 | Neurology Consult Note ---
History of Present Illness History of present illness: Ms. Jenkins is a 86 year old right-handed white lady Who is a DNR and comes from the [facility] home. She has been feeling very weak and it was noted a few days ago that her hematocrit was about 24. She historically has been on Coumadin but has not been on it lately. She was previously on Coumadin for a history of CVA and she has now total left-sided paralysis. This occurred almost a month ago and she went to [facility] for a stroke treatment. She was later transferred to [facility] for further rehabilitation. However she has not been able to get up. She is extremely weak. Now she was admitted for GI bleed. She is very alert and oriented and has basically full mental capacities and she is capable of using her right arm and leg. No speech difficulties reported. No swallowing problems Home Medications Medication Instructions Recorded Confirmed Type Levothyroxine Tab [Synthroid Tab] 150 mcg PO DAILY 09/10/15 08/14/16 History Tiagabine HCl [Gabitril] 4 mg PO BEDTIME 09/10/15 08/14/16 History Tobramycin/Dexamethasone 1 drop BOTH EYES TID 09/11/15 08/14/16 History [Tobramycin/Dexamethasone Oph Susp] Acetaminophen Tab [Tylenol Tab] 650 mg PO Q4H PRN 08/08/16 08/14/16 History Cetirizine Tab [ZyrTEC Tab] 10 mg PO DAILY 08/08/16 08/14/16 History Gabapentin 100 mg PO BID 08/08/16 08/14/16 History Insulin Regular, Human [NovoLIN R] See Protocol SUBCUT DAILY PRN 08/08/16 History Lisinopril 20 mg PO DAILY 08/08/16 08/14/16 History PARoxetine HCl [Paxil] 30 mg PO DAILY 08/08/16 08/14/16 History Polyvinyl Alcohol [Artificial 15 ml BOTH EYES DAILY PRN 08/08/16 08/14/16 History Tears] amLODIPine [Norvasc] 5 mg PO DAILY 08/08/16 08/14/16 History clonazePAM TAB [KlonoPIN] 0.25 mg PO BID 08/08/16 08/14/16 History hydroCHLOROthiazide 12.5 mg PO MOWEFR 05/14/17 05/20/17 History [Hydrochlorothiazide] Loteprednol Etabonate 0.2% 1 drop BOTH EYES BID 08/14/16 08/14/16 History Suspension Opth Melatonin 6 mg PO BEDTIME 08/14/16 08/14/16 History Allergies Allergy/AdvReac Type Severity Reaction Status Date / Time fluticasone [From Flonase] AdvReac Unknown/Unable Verified 06/18/16 08:57 to obtain 12 point system: reviewed and no additional remarkable complaints except as stated Medical,Surgical,& Family Hx - Medical History Cardio: History of: Hypertension, Cardiovascular Problems (high cholesterol) Psychological: History of: Anxiety Disorders Neurology: History of: Cerebrovascular Accident, TIA No history of: Seizures HEENT: History of: Ear Problem (IGIUGIG) Endocrine: History of: Diabetes Mellitus (NIDDM), Thyroid Disorder (Graves disease) Respiratory: History of: Pneumonia Genitourinary: History of: Recurring Urinary Tract Infections Reproductive: History of: Reproductive Problems (breast cancer) - Surgical History HEENT Surgeries: Surgical HX of: Thyroid Surgery Reproductive Surgeries: Comment Only: Breast Surgery (reconstructive surgery r/t breast cancer) - Family History Family History: Reports;: Family Cancer, Family Diabetes, Family Heart Disease, Family Hypertension - Social History Smoking Status: Never smoker Frequency of Alcohol Use: None Type of Drug Use: None Exam - Constitutional Vitals: Period Temp Pulse Resp BP Sys/Bettencourt Pulse Ox Last 24 Hr 97.5 F-98.9 F 57-84 16-22 114-146/60-88 94-99 Exam: GENERAL: Patient is in no acute distress. NECK: Neck is supple. There is no JVD. No carotid bruits present. No thyroid masses. CVS: First and second heart sounds are normal. There is no S3 present. Regular rate and rhythm. RESPIRATORY: Lungs are clear to auscultation without any rales or rhonchi. ABDOMEN: Soft and non-tender. Bowel sounds are present. There is no hepatosplenomegaly. EXT: There is no palpable edema. Peripheral pulses are present. Skin: No rashes Central Nervous system: General: Alert, awake and Oriented x 3 Speech: Fluent Comprehension: Intact and normal Facial expressions: Normal Cranial Nerves: CN1/Olfactory: Normal CN II/ Optic: Normal, Visual Vidales unreliable CN III, and : JAMES & EOMI CN V: Normal & intact CN VII: face is symmetric CNVIII: Normal CN XI/X/XI/XII: Intact and Normal Motor: Bulk and Tone is normal. Strength in the right 5/5 Strength in the left 0/5 Sensory: Decreased in the left side Reflexes: 1+ and symmetrical Cerebellar function: Normal finger to nose and heel to tsai testing in the right and could not assess in the Toes: Equivocal Gait: Not walking Results - Labs CBC & BMP: 08/17/16 03:56 08/17/16 03:56 Assessment and Plan (1) GI bleeding Status: Acute Assessment and plan: Defer treatment to gastroenterology Current Visit: Yes Qualifiers: GI bleed type/associated pathology: gastritis Gastritis type: acute gastritis Qualified Code(s): K29.01 - Acute gastritis with bleeding (2) History of stroke Status: Chronic Assessment and plan: Hold off to any antiplatelet agents or anticoagulation due to GI bleed Start and continue PT and OT Given the advanced age and multiple medical problems, prognosis is guarded. Do not think she is a good candidate for acute rehab either Thank you for the consultation Current Visit: Yes
--- NOTE | 2016-08-17 19:13 | Internal Med Progress Note ---
Assessment and Plan (1) History of stroke Status: Chronic Current Visit: Yes (2) Hypothyroid Status: Chronic Current Visit: Yes Qualifiers: Hypothyroidism type: acquired Qualified Code(s): E03.9 - Hypothyroidism, unspecified (3) Generalized weakness Status: Chronic Current Visit: Yes (4) GI bleeding Status: Resolved Current Visit: Yes Qualifiers: GI bleed type/associated pathology: gastritis Gastritis type: acute gastritis Qualified Code(s): K29.01 - Acute gastritis with bleeding Internal Medicine - PN: Subj Interval history: This is an 86 year old female with history of HTN, DM, old stroke, hypothyroid, OA, generalized debility and weakness, who presented to ER with acute GI bleed. Upper endoscopy per Dr. Randhawa revealed erosive gastritis, large hiatal hernia and paraesophageal hernia. She had a stroke earlier this month and has been in [facility] for rehab. She was once anticoagulated on Coumadin, but this was discontinued. Today, Tuesday, she reports feeling better overall. Needs potassium replacement , and she can be discharged back to [facility] in next day or so. Exam (Progress Note) - Constitutional Vitals: Period Temp Pulse Resp BP Sys/Bettencourt Pulse Ox Last 24 Hr 96.9 F-98.9 F 57-84 16-22 114-146/60-88 94-99 General appearance: no acute distress - Respiratory Respiratory exam: Present: clear to auscultation bilaterally - Cardiovascular Cardiovascular exam: Present: regular rate and rhythm - GI/Abdominal GI/Abdominal exam: Present: soft. Absent: tenderness - Extremities Exam Extremities exam: Absent: edema - Neurological Exam Neurological exam: Present: alert - Psychiatric Psychiatric exam: Present: normal mood - Skin Skin exam: Present: warm, dry Results - Labs CBC & BMP: 08/18/16 05:59 08/18/16 05:59
[2016-08-17] MEDS: MELATONIN 3 MG TABLET PO SCH (20:27)
[2016-08-17] MEDS ORDERED: TIAGABINE PO SCH (21:00)
[2016-08-18] MEDS: ALBUTEROL/IPRATROPIUM 3 ML NEB RESP TX SCH ×4 (01:20→19:06)
[2016-08-18] MEDS: POLYVINYL ALCOHOL 1.4% OPH SOLN 15 ML BOTTLE BOTH EYES PRN (02:18)
[2016-08-18 06:22] LABS: Basophils % 0.4 % (0.0-0.8); Eosinophils # 0.1 10*3/uL (0.0-0.87); Eosinophils % 2.5 % (0.00-10.9); Hematocrit 30.5 VOL% (35.7-47.0); Hemoglobin 9.8 GM/DL (12.0-16.0); Immature Granulocytes % 1.1 %; Immature Granulocytes Absolute 0.05 #; Lymphocytes # 1.2 10*3/uL (1.4-4.0); Lymphocytes % 25.7 % (21.3-54.2); Mean Corpuscular HGB Conc 32.1 GM/DL (32-36); Mean Corpuscular Hemoglobin 28 PG (27-34); Mean Corpuscular Volume 85.4 FL (87-102); Mean Platelet Volume 9.3 FL (9.6-12.0); Monocytes # 0.4 10*3/uL (0.11-0.8); Monocytes % 8.3 % (1.7-12.7); Neutrophils # 2.8 10*3/uL (1.4-7.4); Platelet Count 134 T/CUMM (130-400); Red Blood Count 3.57 MC/CUMM (3.8-5.5); Red Cell Distribution Width 18.2 % (9.3-17.3); White Blood Count 4.5 T/CUMM (4-12)
[2016-08-18 06:56] LABS: Albumin 2.1 G/DL (3.4-5.0); Bilirubin,Total 0.6 MG/DL (0.2-1.0); Calcium 7.8 MG/DL (8.5-10.1); Magnesium 1.9 MG/DL (1.8-2.4); Osmolality,Calculated 286.7 MOS/KG (273-304); Potassium 3.2 MMOL/L (3.5-5.1); Total Protein 4.1 G/DL (6.4-8.3)
[2016-08-18] MEDS: CETIRIZINE 10 MG TABLET PO SCH (09:38)
[2016-08-18] MEDS: clonazePAM 0.5 MG TABLET PO SCH ×2 (09:38→20:58)
[2016-08-18] MEDS: TOBRAMYCIN/DEXAMETHASONE 0.3%-0.1% OPH SUSP 2.5 ML BOTTLE BOTH EYES SCH ×3 (09:38→20:59)
[2016-08-18] MEDS: GABAPENTIN 100 MG CAPSULE PO SCH ×2 (09:43→20:58)
[2016-08-18] MEDS: LEVOTHYROXINE 150 MCG TABLET PO SCH (09:43)
[2016-08-18] MEDS: PARoxetine 20 MG TABLET PO SCH (09:45)
[2016-08-18] MEDS: POTASSIUM CHLORIDE 20 MEQ TABLET PO SCH ×2 (09:46→20:58)
[2016-08-18] MEDS: PANTOPRAZOLE 40 MG VIAL IV SCH ×2 (09:51→20:57)
[2016-08-18] MEDS: DESITIN 4OZ/NYSTATIN 15 GRAM MIXTURE PASTE TOP SCH ×2 (09:53→20:59)
--- NOTE | 2016-08-18 10:16 | Gastrointestinal Progress Note ---
<RichardroryAzra Lindsay - Last Filed: 08/18/16 10:12> Assessment and Plan (1) GI bleeding Status: Resolved Assessment and plan: 08/18-no overt bleeding reported hemoglobin stable at 9.8. Tolerating diet well. Plan an addendum to follow by Dr. Randhawa. 08/17-no further bleeding reported. Hemoglobin holding at 10. Tolerating diet. EGD findings noted. Plan an addendum to follow by Dr. Randhawa. Current Visit: Yes Qualifiers: GI bleed type/associated pathology: gastritis Gastritis type: acute gastritis Qualified Code(s): K29.01 - Acute gastritis with bleeding Gastroenterology - PN: Subj Interval history: CC: GI bleeding Patient is seen awake and alert sitting up in bed. States she had an uneventful night and is feeling well today. Abdomen is soft, nontender. She reports no further hematemesis or other signs of her bleeding. Hemoglobin is stable at 9.8. She is tolerating her diet at present time. ROS: Denies shortness of breath or chest pain Exam (Progress Note) - Constitutional Vitals: Period Temp Pulse Resp BP Sys/Bettencourt Pulse Ox Last 24 Hr 96.9 F-98.9 F 60-84 16-20 106-170/51-70 94-98 General appearance: normal weight, no acute distress - Head Head exam: Present: normal inspection, normocephalic - Eye Eye exam: Present: other (Lids and conjunctive are unremarkable). Absent: scleral icterus - ENT ENT exam: Present: normal exam, normal oropharynx - Neck Neck exam: Present: normal inspection - Respiratory Respiratory exam: Present: clear to auscultation bilaterally. Absent: rales, rhonchi, wheezes - Cardiovascular Cardiovascular exam: Present: regular rate and rhythm. Absent: diastolic murmur , JVD, systolic murmur - GI/Abdominal GI/Abdominal exam: Present: normal bowel sounds, soft. Absent: ascites, distended, mass, organomegaly, tenderness - Extremities Exam Extremities exam: Present: normal inspection, full ROM - Back Exam Back exam: Present: normal inspection - Neurological Exam Neurological exam: Present: alert, oriented X3 - Psychiatric Psychiatric exam: Present: normal affect, normal mood - Skin Skin exam: Present: normal color, warm, dry Results - Labs CBC & BMP: 08/18/16 05:59 08/18/16 05:59 Lab Results: I have reviewed the past 24 hour labs Specialty Discharge - Follow Up or Referrals Follow up with: Tuan Maciel MD [Physician] - Jemma Leon DO [Primary Care Provider] - <Suhas Randhawa - Last Filed: 08/19/16 10:17> Exam (Progress Note) - Constitutional Vitals: Period Temp Pulse Resp BP Sys/Bettencourt Pulse Ox Last 24 Hr 97 F-99.5 F 69-90 18-24 127-134/58-64 92-100 Results - Labs CBC & BMP: 08/18/16 05:59 08/18/16 05:59
--- NOTE | 2016-08-18 15:53 | Neurology Progress Note ---
Neurology - PN : Subjective Interval history: Patient seems to be doing better. No new problems reported. Is still densely weak in the left side. Patient had hemorrhagic type stroke almost 3 weeks ago and needed a repeat MRI Exam (Progress Note) - Constitutional Vitals: Period Temp Pulse Resp BP Sys/Bettencourt Pulse Ox Last 24 Hr 96.9 F-98.1 F 60-78 16-20 106-170/51-70 96-98 Exam: GENERAL: Patient is in no acute distress. NECK: Neck is supple. There is no JVD. No carotid bruits present. No thyroid masses. CVS: First and second heart sounds are normal. There is no S3 present. Regular rate and rhythm. RESPIRATORY: Lungs are clear to auscultation without any rales or rhonchi. ABDOMEN: Soft and non-tender. Bowel sounds are present. There is no hepatosplenomegaly. EXT: There is no palpable edema. Peripheral pulses are present. Skin: No rashes Central Nervous system: General: Alert, awake and Oriented x 3 Speech: Fluent Comprehension: Intact and normal Facial expressions: Normal Cranial Nerves: CN1/Olfactory: Normal CN II/ Optic: Normal, Visual Vidales unreliable CN III, and : JAMES & EOMI CN V: Normal & intact CN VII: face is symmetric CNVIII: Normal CN XI/X/XI/XII: Intact and Normal Motor: Bulk and Tone is normal. Strength in the right 5/5 Strength in the left 0/5 Sensory: Decreased in the left side Reflexes: 1+ and symmetrical Cerebellar function: Normal finger to nose and heel to tsai testing in the right and could not assess in the Toes: Equivocal Gait: Not walking Results - Labs CBC & BMP: 08/18/16 05:59 08/18/16 05:59 Assessment and Plan (1) GI bleeding Status: Resolved Assessment and plan: Defer treatment to gastroenterology Current Visit: Yes Qualifiers: GI bleed type/associated pathology: gastritis Gastritis type: acute gastritis Qualified Code(s): K29.01 - Acute gastritis with bleeding (2) History of stroke Status: Chronic Assessment and plan: Hold off to any antiplatelet agents or anticoagulation due to GI bleed MRI brain without contrast Current Visit: Yes
--- NOTE | 2016-08-18 17:21 | Internal Med Progress Note ---
Assessment and Plan (1) History of stroke Status: Chronic Current Visit: Yes (2) Hypothyroid Status: Chronic Current Visit: Yes Qualifiers: Hypothyroidism type: acquired Qualified Code(s): E03.9 - Hypothyroidism, unspecified (3) Generalized weakness Status: Chronic Current Visit: Yes (4) GI bleeding Status: Resolved Current Visit: Yes Qualifiers: GI bleed type/associated pathology: gastritis Gastritis type: acute gastritis Qualified Code(s): K29.01 - Acute gastritis with bleeding Internal Medicine - PN: Subj Interval history: This is an 86 year old female with history of HTN, DM, old stroke, hypothyroid, OA, generalized debility and weakness, who presented to ER with acute GI bleed. Upper endoscopy per Dr. Randhawa revealed erosive gastritis, large hiatal hernia and paraesophageal hernia. She had a stroke earlier this month and has been in [facility] for rehab. She was once anticoagulated on Coumadin, but this was discontinued. Today, Tuesday, she reports feeling better overall. Needs potassium replacement , and she can be discharged back to [facility] in next day or so. Tuesday, feeling much better with potassium replacement. Will discharge back to half-way tomorrow. Exam (Progress Note) - Constitutional Vitals: Period Temp Pulse Resp BP Sys/Bettencourt Pulse Ox Last 24 Hr 97.3 F-98.1 F 60-78 16-24 106-170/51-70 96-100 General appearance: no acute distress - Respiratory Respiratory exam: Present: clear to auscultation bilaterally - Cardiovascular Cardiovascular exam: Present: regular rate and rhythm - GI/Abdominal GI/Abdominal exam: Present: soft. Absent: tenderness - Extremities Exam Extremities exam: Absent: edema - Neurological Exam Neurological exam: Present: alert - Psychiatric Psychiatric exam: Present: normal mood - Skin Skin exam: Present: warm, dry Results - Labs CBC & BMP: 08/18/16 05:59 08/18/16 05:59
[2016-08-18] MEDS: MELATONIN 3 MG TABLET PO SCH (20:57)
[2016-08-18] MEDS: LOTEPREDNOL ETABONATE 0.2% BOTH EYES SCH (23:11)
[2016-08-18] MEDS: OPTH BOTH EYES SCH (23:11)
[2016-08-19] MEDS: ALBUTEROL/IPRATROPIUM 3 ML NEB RESP TX SCH ×4 (00:50→20:47)
[2016-08-19] MEDS: GABAPENTIN 100 MG CAPSULE PO SCH ×2 (08:09→21:00)
[2016-08-19] MEDS: clonazePAM 0.5 MG TABLET PO SCH ×2 (08:10→21:00)
[2016-08-19] MEDS: PARoxetine 20 MG TABLET PO SCH (08:10)
[2016-08-19] MEDS: CETIRIZINE 10 MG TABLET PO SCH (08:10)
[2016-08-19] MEDS: PANTOPRAZOLE 40 MG VIAL IV SCH ×2 (10:04→21:00)
[2016-08-19] MEDS: POTASSIUM CHLORIDE 20 MEQ TABLET PO SCH ×2 (10:04→21:00)
[2016-08-19] MEDS: LEVOTHYROXINE 150 MCG TABLET PO SCH (10:04)
[2016-08-19] MEDS: DESITIN 4OZ/NYSTATIN 15 GRAM MIXTURE PASTE TOP SCH ×2 (10:07→21:00)
[2016-08-19] MEDS: TOBRAMYCIN/DEXAMETHASONE 0.3%-0.1% OPH SUSP 2.5 ML BOTTLE BOTH EYES SCH ×3 (10:08→21:00)
[2016-08-19 10:59] LABS: Basophils % 0.4 % (0.0-0.8); Eosinophils # 0.1 10*3/uL (0.0-0.87); Eosinophils % 2.2 % (0.00-10.9); Hematocrit 30.6 VOL% (35.7-47.0); Hemoglobin 9.7 GM/DL (12.0-16.0); Immature Granulocytes % 0.6 %; Immature Granulocytes Absolute 0.03 #; Lymphocytes # 1.3 10*3/uL (1.4-4.0); Lymphocytes % 27.4 % (21.3-54.2); Mean Corpuscular HGB Conc 31.7 GM/DL (32-36); Mean Corpuscular Hemoglobin 28 PG (27-34); Mean Corpuscular Volume 87.2 FL (87-102); Monocytes # 0.4 10*3/uL (0.11-0.8); Monocytes % 9.5 % (1.7-12.7); Neutrophils # 2.8 10*3/uL (1.4-7.4); Neutrophils % 59.9 % (38.7-73.9); Platelet Count 109 T/CUMM (130-400); Red Blood Count 3.51 MC/CUMM (3.8-5.5); Red Cell Distribution Width 18.6 % (9.3-17.3); White Blood Count 4.6 T/CUMM (4-12)
[2016-08-19 11:16] LABS: Hypochromasia 1+; Ovalocytes Slight; Platelet Estimate Decreased
[2016-08-19 11:17] LABS: Microcytosis Slight
[2016-08-19 11:22] LABS: Calcium 8.2 MG/DL (8.5-10.1); Osmolality,Calculated 281.3 MOS/KG (273-304); Potassium 4.2 MMOL/L (3.5-5.1)
--- NOTE | 2016-08-19 12:15 | Discharge Summary ---
Hospital Course - Hospital Course Hospital Course: This is an 86 year old female with history of HTN, DM, old stroke, hypothyroid, OA, generalized debility and weakness, who presented to ER with acute GI bleed. Upper endoscopy per Dr. Randhawa revealed erosive gastritis, large hiatal hernia and paraesophageal hernia. She had a stroke earlier this month and has been in [facility] for rehab. She was once anticoagulated on Coumadin, but this was discontinued. She has had potassium replacement while here and feels better. She will be discharged to [facility] today to continue with physical therapy. The GI bleed has resolved. Diagnosis - Discharge Diagnosis (1) History of stroke Status: Chronic (2) Hypothyroid Status: Chronic (3) Generalized weakness Status: Chronic (4) GI bleeding Status: Resolved (5) Hypokalemia Status: Acute Discharge Plan - Discharge Data Disposition: Disch/Xfer-Ip Rehab Fac Condition at Discharge: Stable Discharge Diet: low fat, low cholesterol - Discharge Medications New Potassium Chloride Cap/Tab [K Dur] 20 meq PO BID #60 tablet Aspirin [Aspirin EC] 81 mg PO AC BREAKFAST #30 tablet. Albuterol/Ipratropium Neb [Duoneb] 3 ml RESP TX RT Q6H #120 Continue Levothyroxine Tab [Synthroid Tab] 150 mcg PO DAILY Tiagabine HCl [Gabitril] 4 mg PO BEDTIME Tobramycin/Dexamethasone [Tobramycin/Dexamethasone Oph Susp] 1 drop BOTH EYES TID Acetaminophen Tab [Tylenol Tab] 650 mg PO Q4H PRN PRN Reason: Pain Cetirizine Tab [ZyrTEC Tab] 10 mg PO DAILY clonazePAM TAB [KlonoPIN] 0.25 mg PO BID Gabapentin 100 mg PO BID Insulin Regular, Human [NovoLIN R] See Protocol SUBCUT DAILY PRN PRN Reason: Glucose Management PARoxetine HCl [Paxil] 30 mg PO DAILY Polyvinyl Alcohol [Artificial Tears] 15 ml BOTH EYES DAILY PRN PRN Reason: Dry Eyes Melatonin 6 mg PO BEDTIME Discontinued hydroCHLOROthiazide [Hydrochlorothiazide] 12.5 mg PO MOWEFR Lisinopril 20 mg PO DAILY Loteprednol Etabonate 0.2% Suspension Opth 1 drop BOTH EYES BID amLODIPine [Norvasc] 5 mg PO DAILY - Follow Up or Referral Follow Up: Jemma Leon DO [Primary Care Provider] - Tuan Maciel MD [Physician] - - Forms/Instructions Additional Discharge Instructions: Follow up with Dr. Helga Leon in clinic after rehab/PT has completed. Follow up with Dr. Maciel in clinic within 3-4 months. Exam - Constitutional Vitals: Period Temp Pulse Resp BP Sys/Bettencourt Pulse Ox Last 24 Hr 97 F-99.1 F 71-90 18-24 127-134/58-64 92-100 General appearance: no acute distress - Respiratory Respiratory exam: Present: clear to auscultation bilaterally - Cardiovascular Cardiovascular exam: Present: regular rate and rhythm - GI/Abdominal GI/Abdominal exam: Present: soft. Absent: tenderness - Extremities Exam Extremities exam: Absent: edema - Neurological Exam Neurological exam: Present: alert - Psychiatric Psychiatric exam: Present: normal mood - Skin Skin exam: Present: warm, dry Discharge Results Procedures and tests throughout hospitalization: Pending Orders 08/18/16 15:50 MR head/brain wo con Routine 08/19/16 06:35 Basic Metabolic Panel Routine Comp Blood Count Auto Diff Routine Labs on day of discharge: Labs from last 24 hours 08/18/16 21:07 POC Glucose 156 H DS: Provider Date of admission: 08/14/16 12:33 Primary care physician: Jemma Leon DO Attending physician on admission: Jemma Leon DO Consults: 08/14/16 12:34 Consult to Case Mgmt/Social Srvs [CONS] Routine Reason for Case Mgmt/Social Srvs: Discharge Planning 08/14/16 12:36 Consult to Physician [CONS] Routine Comment: Consulting Provider: Kalyan Bragg V 08/16/16 18:40 Consult to Physician [CONS] Routine Comment: new stroke early July Consulting Provider: Tuan Maciel Consulting Provider Notified: Yes When should Consulting Provider be notified: Now Consult to Specialist Group: Neurology When should Consulting Provider be notified: Now Person Notified: Adwoa Date Notified: 08/17/16 Time Notified: 15:42 Consult Notification Comment: 08/17/2016 10:33 left message 08/17/16 13:27 Consult to Physical Therapy [CONS] Routine Reason for Physical Therapy: Evaluate and Treat Discharging clinician: Jemma Leon DO Expected date of discharge: 08/19/16
--- NOTE | 2016-08-19 12:22 | Event Note ---
Patient seen and examined on August 18 at 12:30 PM. Unfortunately due to computer update it would not allow me access to her record and this is a late entry for August 18. Patient is eating better no complaints of pain no vomiting.. She is swallowing better overall. Plans for transfer to rehab are noted. It will likely take 6- 8 weeks for mucosal healing to occur. Abdomen soft nondistended nontender Agree with additional history physical findings per Azra Calloway [facility] GI progress note from August 18. I will sign off call if we can be of further assistance.
--- NOTE | 2016-08-19 14:05 | Magnetic Resonance Report ---
Exam: MR head/brain wo con Date: 08/19/2016 3:50 PM Comparison: CT brain 06/18/2016 Indication: CVA, left-sided paralysis, progressive weakness Technique:[Multiple acquisitions were obtained including sagittal T1, coronal T2, and axial ADC, diffusion, FLAIR, T2, GRE, and T1 scans without contrast only. Scans were obtained on a 1.5 Trixie magnet.] Findings: The ventricles remain normal in size with no midline displacement. The pituitary has a normal appearance and the cerebellar tonsils are normal in their location. Prior CT demonstrated 15.5 mm acute hemorrhage in the right basal ganglia location with associated edema. There is persistent T1 and T2 hyperintensity in this location with hemosiderin deposition. The finding still involves an approximate 15 mm area with restricted diffusion. Diffuse atrophy and cerebral hypodensities with enlarged perivascular spaces in probable additional chronic bilateral basal ganglia lacunar infarcts. Additional cerebellar atrophy which is more pronounced in the right. No acute findings in the orbit, temporal bones, and [place]. Minimal mucosal thickening in the paranasal sinuses. 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 There is hemosiderin deposition in this location with residual 15 mm finding. The finding is hyperintense on all series which can be seen with probable recurrent hemorrhage. Additional atrophy, microvascular disease, probable additional chronic bilateral basal ganglia lacunar infarcts, and minimal sinusitis. Follow-up CT brain may be helpful for further evaluation. Findings were discussed with patient's nurse, Daysi at 9:15 AM on 08/19/2016. PROCEDURE INTERPRETED AT [facility] DEPARTMENT OF RADIOLOGY Final Report Signed by: Dr. Neelam Ortega
--- NOTE | 2016-08-19 14:44 | Internal Med Progress Note ---
Assessment and Plan (1) History of stroke Status: Chronic (2) Hypothyroid Status: Chronic Qualifiers: Hypothyroidism type: acquired Qualified Code(s): E03.9 - Hypothyroidism, unspecified (3) Generalized weakness Status: Chronic (4) GI bleeding Status: Resolved Qualifiers: GI bleed type/associated pathology: gastritis Gastritis type: acute gastritis Qualified Code(s): K29.01 - Acute gastritis with bleeding (5) Hypokalemia Status: Resolved Internal Medicine - PN: Subj Interval history: This is an 86 year old female with history of HTN, DM, old stroke, hypothyroid, OA, generalized debility and weakness, who presented to ER with acute GI bleed. Upper endoscopy per Dr. Randhawa revealed erosive gastritis, large hiatal hernia and paraesophageal hernia. She had a stroke earlier this month and has been in [facility] for rehab. She was once anticoagulated on Coumadin, but this was discontinued. Today, Tuesday, she reports feeling better overall. Needs potassium replacement , and she can be discharged back to [facility] in next day or so. Tuesday, feeling much better with potassium replacement. [facility]. , continues to do better, and can be discharged back to [facility] after Dr. Maciel has a chance to view MRI brain, blood noted on MRI image. She is asymptomatic and feels better than when she came in. She will have PT at [facility]. Exam (Progress Note) - Constitutional Vitals: Period Temp Pulse Resp BP Sys/Bettencourt Pulse Ox Last 24 Hr 97 F-99.5 F 69-90 18-24 124-134/58-64 92-100 General appearance: no acute distress - Respiratory Respiratory exam: Present: clear to auscultation bilaterally - Cardiovascular Cardiovascular exam: Present: regular rate and rhythm - GI/Abdominal GI/Abdominal exam: Present: soft. Absent: tenderness - Extremities Exam Extremities exam: Absent: edema - Neurological Exam Neurological exam: Present: alert, oriented X3 - Psychiatric Psychiatric exam: Present: normal mood - Skin Skin exam: Present: warm, dry Results - Labs CBC & BMP: 08/19/16 10:32 08/19/16 10:32 Specialty Discharge - Follow Up or Referrals Follow up with: Tuan Maciel MD [Physician] - 10/05/16 9:45 am Jemma Leon DO [Primary Care Provider] -
[2016-08-19] MEDS: MELATONIN 3 MG TABLET PO SCH (21:00)
[2016-08-20] MEDS: ALBUTEROL/IPRATROPIUM 3 ML NEB RESP TX SCH ×2 (00:31→07:23)
[2016-08-20 09:10] VITALS: BP 121/57
[2016-08-20] MEDS: POTASSIUM CHLORIDE 20 MEQ TABLET PO SCH (09:31)
[2016-08-20] MEDS: GABAPENTIN 100 MG CAPSULE PO SCH (09:32)
[2016-08-20] MEDS: clonazePAM 0.5 MG TABLET PO SCH (09:32)
[2016-08-20] MEDS: ACETAMINOPHEN 325 MG TABLET PO PRN (09:32)
[2016-08-20] MEDS: CETIRIZINE 10 MG TABLET PO SCH (09:32)
[2016-08-20] MEDS: PARoxetine 20 MG TABLET PO SCH (09:32)
[2016-08-20] MEDS: LEVOTHYROXINE 150 MCG TABLET PO SCH (09:32)
[2016-08-20] MEDS: DESITIN 4OZ/NYSTATIN 15 GRAM MIXTURE PASTE TOP SCH (09:33)
[2016-08-20] MEDS: PANTOPRAZOLE 40 MG VIAL IV SCH (09:33)
[2016-08-20] MEDS: TOBRAMYCIN/DEXAMETHASONE 0.3%-0.1% OPH SUSP 2.5 ML BOTTLE BOTH EYES SCH (09:36)
== END 2016-08-20 11:30 | DRG 381 ==
LOC: EDUNIT# → N.ED 10:03 → N.EDINP 12:33 → N.TELES 13:32 → N.4E 08-17 13:47
PROVIDERS: ADMIT Internal Medicine; ATTEND Internal Medicine

== ENCOUNTER 2016-09-08 13:03 | Inpatient (IN) ==
--- NOTE | 2016-09-08 13:33 | CT Report ---
Exam: CT scan of brain without contrast Date: 09/08/2016 Indication: Left-sided weakness Comparison: 06/18/2016 Patient's classification: Emergency department Technical: Images were obtained from the skull base to the vertex without the use of intravenous contrast. Dose reduction was performed with decreasing kv and mA and automated exposure Total DLP: 1025.6 mGy*cm Findings: The examination reveals an old area of infarction with a cephalization change in the right centrum semiovale basal ganglia region at the right thalamic junction. Small vessel changes are present in the periventricular and subcortical white matter regions bilaterally. The brainstem is unremarkable. There is atrophy within the cerebellum. Vascular plaque within the vertebral and internal carotid arteries. The paranasal sinuses globes and sella are intact. The mastoids are unremarkable. The ventricles are slightly enlarged. Impression: 1. Old lacunar infarction in the right basal ganglia centrum semiovale. This was previously hemorrhagic infarction which is now resolved to encephalomalacia change with no hemorrhage present. 2. Small vessel ischemic changes 3. Global atrophy. PROCEDURE INTERPRETED AT [facility] DEPARTMENT OF RADIOLOGY Final Report Signed by: Dr. Joseph Brown
[2016-09-08] MEDS ORDERED: TETRACAINE 0.5% OPH SOLN 4 ML BOTTLE ONE (13:42)
[2016-09-08 14:32] LABS: Amorphous Crystals,Urine Few /HPF (Few); Apearance,Urine CLOUDY (Clear); Bacteria,Urine Many /HPF (Few); Bilirubin,Urine Negative (Negative); Blood, Urine Small mg/dL (Negative); Glucose,Urine (UA) Negative (Negative); Ketones,Urine Negative (Negative); Mucus,Urine Many /LPF (Occasional); Nitrite,Urine Negative (Negative); Protein,Urine 100 MG/DL; RBC,Urine 15 /HPF (0-4); Squamous Epithelial Cell,Urine Many /HPF (0-10); Urine Color Yellow (Yellow); Urine Urobilinogen < 2.0 EU/DL (0.2-1.0); WBC,Urine 208 /HPF (0-6)
--- NOTE | 2016-09-08 14:39 | XRay Report ---
Portable chest Date: 09/08/2016 Clinical history: Shortness of breath, fever Comparison: 08/14/2016 Technique: Portable AP sitting chest Findings: Stable cardiomegaly with calcification in aortic knob. Persistent diffuse density at the left lung base with previously noted hiatal hernia. Postoperative findings in the left axilla. Rotation of the patient on the film with osteopenia and degenerative changes. Post operative findings in the left inferior neck location. Impression: Stable cardiomegaly with pleural-parenchymal changes at the left lung base. It is difficult to exclude recurrent infiltration or other pleural-based pathology with pleural effusion. Overlying soft tissue density with postoperative findings in the left axilla. Left lateral decubitus chest may be helpful to determine if free fluid is present. PROCEDURE INTERPRETED AT [facility] DEPARTMENT OF RADIOLOGY Final Report Signed by: Dr. Neelam Ortega
[2016-09-08 15:12] LABS: Basophils # 0.1 10*3/uL (0.0-0.2); Basophils % 0.3 % (0.0-0.8); Eosinophils % 0.1 % (0.00-10.9); Hemoglobin 15.6 GM/DL (12.0-16.0); Immature Granulocytes % 1.8 %; Immature Granulocytes Absolute 0.31 #; Lymphocytes # 1.8 10*3/uL (1.4-4.0); Lymphocytes % 10.4 % (21.3-54.2); Mean Corpuscular HGB Conc 33.2 GM/DL (32-36); Mean Corpuscular Hemoglobin 27 PG (27-34); Mean Corpuscular Volume 82.2 FL (87-102); Monocytes # 1.3 10*3/uL (0.11-0.8); Neutrophils # 13.3 10*3/uL (1.4-7.4); Neutrophils % 79.4 % (38.7-73.9); Platelet Count 348 T/CUMM (130-400); Red Blood Count 5.72 MC/CUMM (3.8-5.5); Red Cell Distribution Width 17.9 % (9.3-17.3); White Blood Count 16.8 T/CUMM (4-12)
--- NOTE | 2016-09-08 15:16 | Emergency Department Note ---
Robinson Dai Mantricia, am scribing for, and in the presence of, Franklyn Montilla MD 13:28. Roldan Dai Phillip K, MD, personally performed the services described in this documentation, ascribed by Lorena Bowers in my presence, and it is both accurate and complete 516 . Arrival - Arrival Chief Complaint: Neuro ED Nursing Triage Note: daughter c/o pt having lt side facial droop, lt side weakness and not talking. pt has hx of old cva. 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 Daughter states that pt had a TIA once before and a hemorrhagic CVA in May 2016. Pt was moved to [facility] yesterday and was fine last time daughter saw her. However she states that once she left, pt worsened through the night. Pt what began vomiting and was given Phenergan. Daughter reports that pt had a blank stare and began to mumble her words. She reports no other complaints to ED. Onset (ago): hour(s) Consistency: constant Allergies/Adverse Reactions: Allergies Allergy/AdvReac Type Severity Reaction Status Date / Time fluticasone [From Flonase] AdvReac Unknown/Unable Verified 06/18/16 08:57 to obtain Home Medications: Home Medications Medication Instructions Recorded Confirmed Type Levothyroxine Tab [Synthroid Tab] 150 mcg PO DAILY 09/10/15 09/08/16 History Tiagabine HCl [Gabitril] 4 mg PO BEDTIME 09/10/15 09/08/16 History Tobramycin/Dexamethasone 1 drop BOTH EYES TID 09/11/15 09/08/16 History [Tobramycin/Dexamethasone Oph Susp] Acetaminophen Tab [Tylenol Tab] 650 mg PO Q4H PRN 08/08/16 09/08/16 History Gabapentin 100 mg PO BID 08/08/16 09/08/16 History Insulin Regular, Human [NovoLIN R] See Protocol SUBCUT DAILY PRN 08/08/16 History PARoxetine HCl [Paxil] 30 mg PO DAILY 08/08/16 09/08/16 History Polyvinyl Alcohol [Artificial 15 ml BOTH EYES DAILY PRN 08/08/16 09/08/16 History Tears] clonazePAM TAB [KlonoPIN] 0.5 mg PO BID 08/08/16 09/08/16 History Melatonin 6 mg PO BEDTIME 08/14/16 09/08/16 History Albuterol/Ipratropium Neb [Duoneb] 3 ml RESP TX RT Q6H #120 08/19/16 09/08/16 Rx Aspirin [Aspirin EC] 81 mg PO AC BREAKFAST #30 tablet.dr 08/19/16 09/08/16 Rx Potassium Chloride Cap/Tab [K Dur] 20 meq PO BID #60 tablet 08/19/16 09/08/16 Rx hydroCHLOROthiazide 12.5 mg PO DAILY 09/08/16 09/08/16 History [Hydrochlorothiazide] Review of System - Review of System 12 point system: reviewed and no additional remarkable complaints except as stated - Review of System Constitutional: Absent: chills, diaphoresis Gastrointestinal: Absent: abdominal pain, nausea, vomiting Musculoskeletal: Absent: arm pain, back pain Neurological: Present: weakness, confusion Medical,Surgical,& Family Hx - Medical History Cardio: History of: Hypertension, Cardiovascular Problems (high cholesterol) Neurology: History of: TIA No history of: Seizures HEENT: History of: Ear Problem ([place]) Endocrine: History of: Diabetes Mellitus (NIDDM) Respiratory: History of: Pneumonia Genitourinary: History of: Recurring Urinary Tract Infections Reproductive: History of: Reproductive Problems (breast cancer) - Surgical History HEENT Surgeries: Surgical HX of: Thyroid Surgery Reproductive Surgeries: Comment Only: Breast Surgery (reconstructive surgery r/t breast cancer) - Family History Family History: Reports;: Family Cancer, Family Diabetes, Family Heart Disease, Family Hypertension - Social History Smoking Status: Never smoker Frequency of Alcohol Use: None Type of Drug Use: None Exam Vital Signs: Vital Signs Temperature 98.7 F 09/08/16 13:04 Pulse Rate 90 09/08/16 13:04 Respiratory Rate 18 09/08/16 13:23 Blood Pressure 129/80 09/08/16 13:04 O2 Sat by Pulse Oximetry 97 09/08/16 13:04 - General General appearance: alert, in no apparent distress - Head Head exam: Present: atraumatic, normocephalic, normal inspection - Eye Eye exam: Present: normal appearance, PERRL, EOMI, other (abrasion to left periorbital area ) - ENT ENT exam: Present: normal exam, normal oropharynx, mucous membranes dry, TM's normal bilaterally, normal external ear exam - Neck Neck exam: Present: normal inspection, full ROM, trachea midline. Absent: tenderness - Chest Chest inspection: Present: normal inspection, symmetric chest wall rise. Absent : tenderness - Respiratory Respiratory exam: Present: normal lung sounds bilaterally - Cardiovascular Cardiovascular exam: Present: normal rhythm, tachycardia, normal heart sounds - Abdominal Exam Abdominal exam: Present: soft, normal bowel sounds. Absent: distention, tenderness, guarding, rebound - Extremities Exam Extremities exam: Present: normal inspection, full ROM, normal capillary refill. Absent: tenderness, pedal edema - Back Exam Back exam: Present: normal inspection, full ROM. Absent: tenderness - Neurological Exam Neurological exam: Present: CN II-XII intact, normal gait, other (left hemiparasis -no new neurological deficit) - Psychiatric Psychiatric exam: Present: normal affect, normal mood Course Course Narrative: Patient discussed with the hospitalist. Results - Labs CBC & BMP: 09/08/16 13:47 09/08/16 13:47 Lab Results: I have reviewed the patients labs (Urinalysis shows many bacteria and moderate leukocytes and large number of white blood cells.) Labs: Laboratory Tests 09/08/16 09/08/16 13:12 13:47 WBC 16.8 H RBC 5.72 H MCV 82.2 L Neut % (Auto) 79.4 H Lymph % (Auto) 10.4 L Neut # (Auto) 13.3 H [place] # (Auto) 1.3 H Urine Urobilinogen < 2.0 H Urine Leukocytes Moderate H - EKG EKG results: interpreted by ERMD, sinus rhythm (Old anterior [place]) - Diagnostic Findings Procedure: Chest x-ray: report reviewed by me (Haziness in the left base possible effusion versus infiltrate), CT: report reviewed by me (Head: 1. Old lacunar infarction in the right basal ganglia centrum semiovale. This was previously hemorrhagic infarction which is now resolved to encephalomalacia change with no hemorrhage present. 2. Small vessel ischemic changes. 3. Global atrophy. ) Disposition Clinical Impression: Dehydration, Urinary tract infection, Corneal abrasion left eye, History of hemorrhagic CVA Clinical Impression: (Ruled Out): History of hemorrhagic cerebrovascular accident (CVA) without residual deficits Case discussed with: patient, patient's family Disposition: Still a Patient Additional Instructions: Admit to the hospitalist.
[2016-09-08] MEDS ORDERED: LEVOFLOXACIN INJ 100 ML IV ONE (15:18)
[2016-09-08 15:26] LABS: Albumin 3.3 G/DL (3.4-5.0); Bilirubin,Total 0.7 MG/DL (0.2-1.0); Calcium 10.8 MG/DL (8.5-10.1); Osmolality,Calculated 275.4 MOS/KG (273-304); Potassium 4.8 MMOL/L (3.5-5.1); Total Protein 6.4 G/DL (6.4-8.3)
[2016-09-08] MEDS ORDERED: LEVOFLOXACIN INJ 500 MG in PREMIX 1 EACH IV STA (15:27)
[2016-09-08] MEDS ORDERED: SODIUM CHLORIDE 0.9% 1,000 ML IV STA (15:27)
--- NOTE | 2016-09-08 16:42 | Hospitalist History & Physical ---
History of Present Illness History of present illness: Ms. Jenkins is a 86 year old female Home Medications Medication Instructions Recorded Confirmed Type Levothyroxine Tab [Synthroid Tab] 150 mcg PO DAILY 09/10/15 09/08/16 History Tiagabine HCl [Gabitril] 4 mg PO BEDTIME 09/10/15 09/08/16 History Tobramycin/Dexamethasone 1 drop BOTH EYES TID 09/11/15 09/08/16 History [Tobramycin/Dexamethasone Oph Susp] Acetaminophen Tab [Tylenol Tab] 650 mg PO Q4H PRN 08/08/16 09/08/16 History Gabapentin 100 mg PO BID 08/08/16 09/08/16 History Insulin Regular, Human [NovoLIN R] See Protocol SUBCUT DAILY PRN 08/08/16 History PARoxetine HCl [Paxil] 30 mg PO DAILY 08/08/16 09/08/16 History Polyvinyl Alcohol [Artificial 15 ml BOTH EYES DAILY PRN 08/08/16 09/08/16 History Tears] clonazePAM TAB [KlonoPIN] 0.5 mg PO BID 08/08/16 09/08/16 History Melatonin 6 mg PO BEDTIME 08/14/16 09/08/16 History Albuterol/Ipratropium Neb [Duoneb] 3 ml RESP TX RT Q6H #120 08/19/16 09/08/16 Rx Aspirin [Aspirin EC] 81 mg PO AC BREAKFAST #30 tablet. 08/19/16 09/08/16 Rx Potassium Chloride Cap/Tab [K Dur] 20 meq PO BID #60 tablet 08/19/16 09/08/16 Rx hydroCHLOROthiazide 12.5 mg PO DAILY 09/08/16 09/08/16 History [Hydrochlorothiazide] Allergies Allergy/AdvReac Type Severity Reaction Status Date / Time fluticasone [From Flonase] AdvReac Unknown/Unable Verified 06/18/16 08:57 to obtain Medical,Surgical,& Family Hx - Medical History Cardio: History of: Hypertension, Cardiovascular Problems (high cholesterol) Neurology: History of: TIA No history of: Seizures HEENT: History of: Ear Problem ([place]) Endocrine: History of: Diabetes Mellitus (NIDDM) Respiratory: History of: Pneumonia Genitourinary: History of: Recurring Urinary Tract Infections Reproductive: History of: Reproductive Problems (breast cancer) - Surgical History HEENT Surgeries: Surgical HX of: Thyroid Surgery Reproductive Surgeries: Comment Only: Breast Surgery (reconstructive surgery r/t breast cancer) - Family History Family History: Reports;: Family Cancer, Family Diabetes, Family Heart Disease, Family Hypertension - Social History Smoking Status: Never smoker Frequency of Alcohol Use: None Type of Drug Use: None 12 point system: reviewed and no additional remarkable complaints except as stated Exam - Constitutional Vitals: Period Temp Pulse Resp BP Sys/Bet[place]court Pulse Ox Last 24 Hr 98.7 F-98.7 F 90-90 18-18 129-129/80-80 97 Results - Labs CBC & BMP: 09/08/16 13:47 09/08/16 13:47 Lab Results: I have reviewed the past 24 hour labs - EKG EKG shows: sinus rhythm - Diagnostic Findings Procedure: Chest x-ray: report reviewed by me, CT: report reviewed by me Quality Measures - Stroke Onset of Symptoms Date: 09/08/16 Onset of Symptoms Time: 11:38
--- NOTE | 2016-09-08 19:30 | Internal Med History&Physical ---
Assessment and Plan (1) Altered mental status Status: Acute Current Visit: Yes (2) Pneumonia Status: Acute Current Visit: Yes Qualifiers: Laterality: left Lung location: lower lobe of lung (3) History of stroke Status: Chronic Current Visit: Yes (4) Hypothyroid Status: Chronic Current Visit: No Qualifiers: Hypothyroidism type: acquired Qualified Code(s): E03.9 - Hypothyroidism, unspecified (5) Generalized weakness Status: Chronic Current Visit: Yes (6) Dehydration Status: Acute Current Visit: Yes (7) Urinary tract infection Status: Acute Current Visit: Yes Qualifiers: Hematuria presence: with hematuria History of Present Illness Chief complaint: nausea and vomiting History of present illness: Ms. Jenkins is a 86 year old female with recent history of TIAs and stroke, history of HTN, DM, depression and anxiety, seizure disorder, hypothyroid, hyperlipidemia; had been on Coumadin therapy until recent hemorrhagic brain bleed/stroke; history of GI bleed, OA, UTI, who presented to ER after [facility]. She had nausea and vomiting at pen[facility]entiary, but none here. She was found to have UTI. She did not answer questions when seen on the floor, and the nurse reports patient not speaking with nursing staff as well. Unclear whether she is having acute worsening of deafness (history of hearing loss). She now has a blank stare which is new. CT brain not indicating new stroke, but Dr. Maciel will be consulted. She may need repeat brain imaging in a couple days. However, she does have UTI, which may be affecting these symptoms. She had Levaquin in ER, and Rocephin was started on the floor. Abnormal chest x-ray left lung. Antibiotic, Rocephin, ordered as well as breathing treatments. She will not be able to perform incentive spirometry. Pulmonology consulted to further evaluate left lung, which may have pleural effusion. Home Medications Medication Instructions Recorded Confirmed Type Levothyroxine Tab [Synthroid Tab] 150 mcg PO DAILY 09/10/15 09/08/16 History Tiagabine HCl [Gabitril] 4 mg PO BEDTIME 09/10/15 09/08/16 History Tobramycin/Dexamethasone 1 drop BOTH EYES TID 09/11/15 09/08/16 History [Tobramycin/Dexamethasone Oph Susp] Acetaminophen Tab [Tylenol Tab] 650 mg PO Q4H PRN 08/08/16 09/08/16 History Gabapentin 100 mg PO BID 08/08/16 09/08/16 History Insulin Regular, Human [NovoLIN R] See Protocol SUBCUT DAILY PRN 08/08/16 History PARoxetine HCl [Paxil] 30 mg PO DAILY 08/08/16 09/08/16 History Polyvinyl Alcohol [Artificial 15 ml BOTH EYES DAILY PRN 08/08/16 09/08/16 History Tears] clonazePAM TAB [KlonoPIN] 0.5 mg PO BID 08/08/16 09/08/16 History Melatonin 6 mg PO BEDTIME 08/14/16 09/08/16 History Albuterol/Ipratropium Neb [Duoneb] 3 ml RESP TX RT Q6H #120 08/19/16 09/08/16 Rx Aspirin [Aspirin EC] 81 mg PO AC BREAKFAST #30 tablet. 08/19/16 09/08/16 Rx Potassium Chloride Cap/Tab [K Dur] 20 meq PO BID #60 tablet 08/19/16 09/08/16 Rx hydroCHLOROthiazide 12.5 mg PO DAILY 09/08/16 09/08/16 History [Hydrochlorothiazide] Allergies Allergy/AdvReac Type Severity Reaction Status Date / Time fluticasone [From Flonase] AdvReac Unknown/Unable Verified 06/18/16 08:57 to obtain Medical,Surgical,& Family Hx - Medical History Cardio: History of: Hypertension, Cardiovascular Problems (high cholesterol) Psychological: History of: Anxiety Disorders Neurology: History of: Cerebrovascular Accident, Seizures, TIA HEENT: History of: Ear Problem ([place]) Endocrine: History of: Diabetes Mellitus (NIDDM), Thyroid Disorder (Graves disease) Respiratory: History of: Pneumonia Genitourinary: History of: Recurring Urinary Tract Infections Gastrointestinal: History of: GERD Musculoskeletal: History of: Musculoskeletal Problems (OA) Reproductive: History of: Reproductive Problems (breast cancer) Other: History of: Cancer (BREAST) - Surgical History HEENT Surgeries: Surgical HX of: Thyroid Surgery Reproductive Surgeries: Comment Only: Breast Surgery (reconstructive surgery r/t breast cancer) - Family History Family History: Reports;: Family Cancer, Family Diabetes, Family Heart Disease, Family Hypertension Denies;: Family Anesthesia Reaction, Family Hematology, Family Psychiatric Problems, Family Stroke, Additional Family History - Social History Smoking Status: Never smoker Frequency of Alcohol Use: None Type of Drug Use: None Marital Status: Lives With:: [facility], new resident Functional capacity: uses cane/walker ROS unobtainable: other (speech aphasia; deafness) - Constitutional Constitutional: Present: weakness - EENT Ears: Present: decreased hearing - Respiratory Respiratory: Present: dyspnea on exertion - Gastrointestinal Gastrointestinal: Present: nausea, vomiting (at penitentiary last night) - Genitourinary Genitourinary: Present: urinary incontinence - Neurological Neurological: Present: behavioral changes (blank stare) Exam - Constitutional Vitals: Period Temp Pulse Resp BP Sys/Bettencourt Pulse Ox Last 24 Hr 97.7 F-98.7 F 87-90 18-20 129-164/78-80 93-97 General appearance: no acute distress - Head Head exam: Present: normocephalic - Eye Eye exam: Present: EOMI, other (staring) - Respiratory Respiratory exam: Present: clear to auscultation bilaterally, decreased breath sounds (right lung better air flow) - Cardiovascular Cardiovascular exam: Present: regular rate and rhythm - GI/Abdominal GI/Abdominal exam: Present: soft - Extremities Exam Extremities exam: Absent: edema - Neurological Exam Neurological exam: Present: altered - Psychiatric Psychiatric exam: Present: normal mood - Skin Skin exam: Present: warm, dry Results - Labs CBC & BMP: 09/08/16 13:47 09/08/16 13:47 - EKG EKG shows: sinus rhythm - Diagnostic Findings Procedure: Chest x-ray: image reviewed by me, report reviewed by me, CT: report reviewed by me Quality Measures - Stroke Onset of Symptoms Date: 09/08/16 Onset of Symptoms Time: 11:38
[2016-09-08] MEDS ORDERED: ACETAMINOPHEN 325 MG TABLET PO PRN (22:54)
[2016-09-08] MEDS: ALBUTEROL/IPRATROPIUM 3 ML NEB RESP TX SCH (23:44)
[2016-09-08] MEDS: cefTRIAXone 1,000 MG in SODIUM CHLORIDE 0.9% 100 ML IV SCH (23:59)
[2016-09-08] MEDS: SODIUM CHLORIDE 0.9% 1,000 ML IV SCH (23:59)
[2016-09-09] MEDS: POLYVINYL ALCOHOL 1.4% OPH SOLN 15 ML BOTTLE BOTH EYES PRN (00:06)
[2016-09-09] MEDS ORDERED: MELATONIN 3 MG TABLET PO ONE (00:30)
[2016-09-09] MEDS: ALBUTEROL/IPRATROPIUM 3 ML NEB RESP TX SCH ×5 (03:52→19:13)
--- NOTE | 2016-09-09 05:57 | EKG Report ---
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
[2016-09-09 07:27] LABS: Calcium 9.4 MG/DL (8.5-10.1); Magnesium 1.7 MG/DL (1.8-2.4); Potassium 3.5 MMOL/L (3.5-5.1)
--- NOTE | 2016-09-09 09:04 | Neurology Consult Note ---
History of Present Illness History of present illness: Ms. Jenkins is a 86 year old right-handed white lady who is now a group home resident with past medical history significant for history of TIAs and stroke affected left body, history of HTN, DM, depression and anxiety, seizure disorder , hypothyroid, hyperlipidemia; had been on Coumadin therapy until recent hemorrhagic brain bleed/stroke; history of GI bleed, OA, UTI, who presented to ER with nausea and vomiting at group home. She was extremely confused and disoriented at the time of admission. She was found to have UTI. She did not answer questions much yesterday, and the nurse reports patient not speaking with nursing staff as well. She had a blank stare on her face. CT of the brain is unremarkable. However, she does have UTI, and also a touch of pneumonia. She was started on antibiotic and today she is a whole lot better. She is alert and awake and following commands. His speech is fluent. She knows where she is. She is cannot move her left side. Answer all the questions appropriately Home Medications Medication Instructions Recorded Confirmed Type Levothyroxine Tab [Synthroid Tab] 150 mcg PO DAILY 09/10/15 09/08/16 History Tiagabine HCl [Gabitril] 4 mg PO BEDTIME 09/10/15 09/08/16 History Tobramycin/Dexamethasone 1 drop BOTH EYES TID 09/11/15 09/08/16 History [Tobramycin/Dexamethasone Oph Susp] Acetaminophen Tab [Tylenol Tab] 650 mg PO Q4H PRN 08/08/16 09/08/16 History Gabapentin 100 mg PO BID 08/08/16 09/08/16 History Insulin Regular, Human [NovoLIN R] See Protocol SUBCUT DAILY PRN 08/08/16 History PARoxetine HCl [Paxil] 30 mg PO DAILY 08/08/16 09/08/16 History Polyvinyl Alcohol [Artificial 15 ml BOTH EYES DAILY PRN 08/08/16 09/08/16 History Tears] clonazePAM TAB [KlonoPIN] 0.5 mg PO BID 08/08/16 09/08/16 History Melatonin 6 mg PO BEDTIME 08/14/16 09/08/16 History Albuterol/Ipratropium Neb [Duoneb] 3 ml RESP TX RT Q6H #120 08/19/16 09/08/16 Rx Aspirin [Aspirin EC] 81 mg PO AC BREAKFAST #30 tablet. 08/19/16 09/08/16 Rx Potassium Chloride Cap/Tab [K Dur] 20 meq PO BID #60 tablet 08/19/16 09/08/16 Rx hydroCHLOROthiazide 12.5 mg PO DAILY 09/08/16 09/08/16 History [Hydrochlorothiazide] Allergies Allergy/AdvReac Type Severity Reaction Status Date / Time fluticasone [From Flonase] AdvReac Unknown/Unable Verified 06/18/16 08:57 to obtain 12 point system: reviewed and no additional remarkable complaints except as stated Medical,Surgical,& Family Hx - Medical History Cardio: History of: Cardiac Dysrhythmia (paroxysmal atrial fibrillation), Hypertension, Cardiovascular Problems (high cholesterol) Psychological: History of: Anxiety Disorders Neurology: History of: Cerebrovascular Accident, Seizures, TIA HEENT: History of: Ear Problem ([place]) Endocrine: History of: Diabetes Mellitus (NIDDM), Thyroid Disorder (Graves disease) Respiratory: History of: Pneumonia Genitourinary: History of: Recurring Urinary Tract Infections Gastrointestinal: History of: GERD Musculoskeletal: History of: Musculoskeletal Problems (OA) Reproductive: History of: Reproductive Problems (breast cancer) Other: History of: Cancer (BREAST) - Surgical History HEENT Surgeries: Surgical HX of: Thyroid Surgery Reproductive Surgeries: Comment Only: Breast Surgery (reconstructive surgery r/t breast cancer) - Family History Family History: Reports;: Family Cancer, Family Diabetes, Family Heart Disease, Family Hypertension Denies;: Family Anesthesia Reaction, Family Hematology, Family Psychiatric Problems, Family Stroke, Additional Family History - Social History Smoking Status: Never smoker Frequency of Alcohol Use: None Type of Drug Use: None Exam - Constitutional Vitals: Period Temp Pulse Resp BP Sys/Bettencourt Pulse Ox Last 24 Hr 97.0 F-98.7 F 85-126 18-21 129-164/65-80 93-99 Exam: GENERAL: Patient is in no acute distress. NECK: Neck is supple. There is no JVD. No carotid bruits present. No thyroid masses. CVS: First and second heart sounds are normal. There is no S3 present. Regular rate and rhythm. RESPIRATORY: Lungs are clear to auscultation without any rales or rhonchi. ABDOMEN: Soft and non-tender. Bowel sounds are present. There is no hepatosplenomegaly. EXT: There is no palpable edema. Peripheral pulses are present. Skin: No rashes Central Nervous system: General: Alert, awake Speech: Fluent Comprehension: Fair Facial expressions: Normal Cranial Nerves: CN1/Olfactory: Normal CN II/ Optic: Normal, Visual Vidales unreliable CN III, and : JAMES & EOMI CN V: Normal & intact CN VII: face is symmetric CNVIII: Normal CN XI/X/XI/XII: Intact and Normal Motor: Bulk and Tone is normal. Strength in the left is 1/5 and in the right is 4/5 Sensory: Decreased intact for all the modalities of PP, LT and temp sense in the left Reflexes: Brisk in the left Cerebellar function: Could not do finger to nose and heel to tsai testing. Toes: Equivocal Gait: Cannot be tested Results - Labs CBC & BMP: 09/08/16 13:47 09/09/16 05:47 Assessment and Plan (1) Altered mental status Status: Acute Assessment and plan: This is likely due to infection (UTI/pneumonia) Patient is much better since being on antibiotic coverage Continue current management No further neurological intervention needed Thank you for the consult Current Visit: Yes
[2016-09-09] MEDS: ASPIRIN EC 81 MG TABLET PO SCH (09:58)
[2016-09-09] MEDS: PARoxetine 10 MG TABLET PO SCH (09:58)
[2016-09-09] MEDS: GABAPENTIN 100 MG CAPSULE PO SCH ×2 (09:58→20:28)
[2016-09-09] MEDS: clonazePAM 0.5 MG TABLET PO SCH ×2 (09:58→20:28)
[2016-09-09] MEDS: LEVOTHYROXINE 150 MCG TABLET PO SCH (09:58)
[2016-09-09] MEDS: TOBRAMYCIN/DEXAMETHASONE 0.3%-0.1% OPH SUSP 2.5 ML BOTTLE BOTH EYES SCH ×3 (09:58→20:28)
--- NOTE | 2016-09-09 10:42 | Pulmonology Consult Note ---
Assessment and Plan (1) Altered mental status Status: Acute Assessment and plan: Patient came in with lethargy and this is probably due to infection and mild dehydration. She is more alert today. Current Visit: Yes (2) Pneumonia Status: Acute Assessment and plan: The patient has a left lower lobe consolidation and will treat as pneumonia. Current Visit: Yes Qualifiers: Laterality: left Lung location: lower lobe of lung (3) History of stroke Status: Chronic Assessment and plan: Patient has an old CVA on her CT Current Visit: Yes (4) Generalized weakness Status: Chronic Assessment and plan: Patient is an elderly lady and is quite debilitated. Current Visit: Yes (5) Urinary tract infection Status: Acute Assessment and plan: Patient has gram-negative rods in her urine Current Visit: Yes Qualifiers: Hematuria presence: with hematuria History of Present Illness Chief complaint: Pneumonia History of present illness: Ms. Jenkins is a 86 year old white female that is in a fdc and has had previous CVAs and TIAs. She has a history of diabetes ,hypertension, depression and seizure disorder, hypothyroidism and is quite debilitated. Recently she was thought to have had a hemorrhagic bleed into her stroke. Her anticoagulations were stopped. She apparently has not been in the fdc very long when she was sent back with a possible UTI. There is a question of some nausea and vomiting. She apparently had altered mental status and has had some chest congestion. Her chest x-ray showed some left lower lobe consolidation. She apparently is more alert today on IV antibiotics. Home Medications Medication Instructions Recorded Confirmed Type Levothyroxine Tab [Synthroid Tab] 150 mcg PO DAILY 09/10/15 09/08/16 History Tiagabine HCl [Gabitril] 4 mg PO BEDTIME 09/10/15 09/08/16 History Tobramycin/Dexamethasone 1 drop BOTH EYES TID 09/11/15 09/08/16 History [Tobramycin/Dexamethasone Oph Susp] Acetaminophen Tab [Tylenol Tab] 650 mg PO Q4H PRN 08/08/16 09/08/16 History Gabapentin 100 mg PO BID 08/08/16 09/08/16 History Insulin Regular, Human [NovoLIN R] See Protocol SUBCUT DAILY PRN 08/08/16 History PARoxetine HCl [Paxil] 30 mg PO DAILY 08/08/16 09/08/16 History Polyvinyl Alcohol [Artificial 15 ml BOTH EYES DAILY PRN 08/08/16 09/08/16 History Tears] clonazePAM TAB [KlonoPIN] 0.5 mg PO BID 08/08/16 09/08/16 History Melatonin 6 mg PO BEDTIME 08/14/16 09/08/16 History Albuterol/Ipratropium Neb [Duoneb] 3 ml RESP TX RT Q6H #120 08/19/16 09/08/16 Rx Aspirin [Aspirin EC] 81 mg PO AC BREAKFAST #30 tablet. 08/19/16 09/08/16 Rx Potassium Chloride Cap/Tab [K Dur] 20 meq PO BID #60 tablet 08/19/16 09/08/16 Rx hydroCHLOROthiazide 12.5 mg PO DAILY 09/08/16 09/08/16 History [Hydrochlorothiazide] Allergies Allergy/AdvReac Type Severity Reaction Status Date / Time fluticasone [From Flonase] AdvReac Unknown/Unable Verified 06/18/16 08:57 to obtain ROS unobtainable: due to mental status (She really cannot give any history) Exam (Pulmonay) H&P - Constitutional Vitals: Period Temp Pulse Resp BP Sys/Bettencourt Pulse Ox Last 24 Hr 97.0 F-98.7 F 85-126 18-21 129-164/65-80 93-99 General appearance: normal weight, no acute distress, other (She is sitting up but is a little confused.) - Head Head exam: Present: normal inspection, normocephalic - Eye Eye exam: Present: EOMI. Absent: scleral icterus Pupils: Present: JAMES - ENT ENT exam: Present: normal exam - Neck Neck exam: Present: normal inspection. Absent: lymphadenopathy, meningismus, thyromegaly - Respiratory Respiratory exam: Present: rales, rhonchi, other (She does have some coarse breath sounds with rhonchi and crackles in the left base.). Absent: accessory muscle use - Cardiovascular Cardiovascular exam: Present: regular rate and rhythm. Absent: gallop, systolic murmur - GI/Abdominal GI/Abdominal exam: Present: normal bowel sounds, soft. Absent: organomegaly, tenderness - Extremities Exam Extremities exam: Absent: calf tenderness, edema - Neurological Exam Neurological exam: Present: altered (She does respond but is not talking that much. She apparently is more alert than yesterday.), other (She does not move her left side very well.) - Psychiatric Psychiatric exam: Present: flat affect - Skin Skin exam: Present: warm, dry Medical,Surgical,& Family Hx - Medical History Cardio: History of: Cardiac Dysrhythmia (paroxysmal atrial fibrillation), Hypertension, Cardiovascular Problems (high cholesterol) Psychological: History of: Anxiety Disorders Neurology: History of: Cerebrovascular Accident, Seizures, TIA HEENT: History of: Ear Problem ([place]) Endocrine: History of: Diabetes Mellitus (NIDDM), Thyroid Disorder (Graves disease) Respiratory: History of: Pneumonia Genitourinary: History of: Recurring Urinary Tract Infections Gastrointestinal: History of: GERD Musculoskeletal: History of: Musculoskeletal Problems (OA) Reproductive: History of: Reproductive Problems (breast cancer) Other: History of: Cancer (BREAST) - Surgical History HEENT Surgeries: Surgical HX of: Thyroid Surgery Reproductive Surgeries: Comment Only: Breast Surgery (reconstructive surgery r/t breast cancer) - Family History Family History: Reports;: Family Cancer, Family Diabetes, Family Heart Disease, Family Hypertension Denies;: Family Anesthesia Reaction, Family Hematology, Family Psychiatric Problems, Family Stroke, Additional Family History - Social History Smoking Status: Never smoker Frequency of Alcohol Use: None Type of Drug Use: None Results - Labs CBC & BMP: 09/08/16 13:47 09/09/16 05:47 - Diagnostic Findings Procedure: Chest x-ray: image reviewed by me, report reviewed by me (Chest x- ray does show some left lower lobe consolidation.) Quality Measures - Stroke Onset of Symptoms Date: 09/08/16 Onset of Symptoms Time: 11:38
[2016-09-09] MEDS: SODIUM CHLORIDE 0.9% 1,000 ML IV SCH ×2 (11:45→20:33)
[2016-09-09] MEDS: LEVOFLOXACIN INJ 500 MG in PREMIX 1 EACH IV SCH (15:28)
--- NOTE | 2016-09-09 17:20 | Consultation ---
Assessment and Plan - Time spent with patient Time spent with patient: Less than 30 minutes (1) Sudden hearing loss, unspecified Status: Acute Assessment and plan: Her new onset sudden hearing loss appears to be resolved by examination today. Overall there is no obvious conductive component to her hearing loss because of cerumen impaction or middle ear effusion. She would need a audiogram to better evaluate her overall hearing. I do suspect she has a baseline sensorineural hearing loss secondary to bedside tuning fork exam. I do not think there is an acute process going on right now. Most likely her sudden hearing loss was multifactorial with her multiple medical comorbidities yesterday and as she has been improving that has improved as well. I do not have any additional recommendations other than potentially an audiogram and follow-up as an outpatient to discuss her hearing loss but she may be okay with that as it may be age-appropriate not affecting her lifestyle at 86. Thank you very much for this consultation I will sign off on this patient by remain available if there is a question or concern. I will be out of town next week on vacation but Dr. Pena is covering for me if there are any additional questions or concerns. Current Visit: Yes (2) Sensorineural hearing loss Status: Acute Current Visit: Yes History of Present Illness - Data of Consult Patient: new to practice Consult date: 09/09/16 Requesting Physician: Jemma Leon - Consult Narrative Reason for consult: Sudden hearing loss History of present illness: Ms. Jenkins is a 86 year old female with multiple medical comorbidities awoke yesterday morning 24 hours ago and had concerns for sudden hearing loss that she was not able to respond to primary care physician and there is question sudden hearing loss may be contributing to the factor. ENT is consulted to evaluate over the last 24 hours there has been noticeable change per nursing staff and she is back to what nursing perceives as her baseline loss of hearing consistent with an 86 year young patient. Additionally the patient has had more to say more conversation and been more aware of the situation contrary to yesterday where she was confused concerning that she was not able to hear during conversation. She does note some right ear pain that comes and goes she is not able to localize the right or left ear that is hearing worse and does state she has baseline hearing loss that is been going on for "years now" nothing seems to make it better or worse the patient states. CC: Jemma Leon, DO - Home Medications and Allergies Home Medications: Home Medications Medication Instructions Recorded Confirmed Type Levothyroxine Tab [Synthroid Tab] 150 mcg PO DAILY 09/10/15 09/08/16 History Tiagabine HCl [Gabitril] 4 mg PO BEDTIME 09/10/15 09/08/16 History Tobramycin/Dexamethasone 1 drop BOTH EYES TID 09/11/15 09/08/16 History [Tobramycin/Dexamethasone Oph Susp] Acetaminophen Tab [Tylenol Tab] 650 mg PO Q4H PRN 08/08/16 09/08/16 History Gabapentin 100 mg PO BID 08/08/16 09/08/16 History Insulin Regular, Human [NovoLIN R] See Protocol SUBCUT DAILY PRN 08/08/16 History PARoxetine HCl [Paxil] 30 mg PO DAILY 08/08/16 09/08/16 History Polyvinyl Alcohol [Artificial 15 ml BOTH EYES DAILY PRN 08/08/16 09/08/16 History Tears] clonazePAM TAB [KlonoPIN] 0.5 mg PO BID 08/08/16 09/08/16 History Melatonin 6 mg PO BEDTIME 08/14/16 09/08/16 History Albuterol/Ipratropium Neb [Duoneb] 3 ml RESP TX RT Q6H #120 08/19/16 09/08/16 Rx Aspirin [Aspirin EC] 81 mg PO AC BREAKFAST #30 tablet. 08/19/16 09/08/16 Rx Potassium Chloride Cap/Tab [K Dur] 20 meq PO BID #60 tablet 08/19/16 09/08/16 Rx hydroCHLOROthiazide 12.5 mg PO DAILY 09/08/16 09/08/16 History [Hydrochlorothiazide] Allergies/Adverse Reactions: Allergies Allergy/AdvReac Type Severity Reaction Status Date / Time fluticasone [From Flonase] AdvReac Unknown/Unable Verified 06/18/16 08:57 to obtain 12 point system: reviewed and no additional remarkable complaints except as stated Medical,Surgical,& Family Hx - Medical History Cardio: History of: Cardiac Dysrhythmia (paroxysmal atrial fibrillation), Hypertension, Cardiovascular Problems (high cholesterol) Psychological: History of: Anxiety Disorders Neurology: History of: Cerebrovascular Accident, Seizures, TIA HEENT: History of: Ear Problem (SITKA) Endocrine: History of: Diabetes Mellitus (NIDDM), Thyroid Disorder (Graves disease) Respiratory: History of: Pneumonia Genitourinary: History of: Recurring Urinary Tract Infections Gastrointestinal: History of: GERD Musculoskeletal: History of: Musculoskeletal Problems (OA) Reproductive: History of: Reproductive Problems (breast cancer) Other: History of: Cancer (BREAST) - Surgical History HEENT Surgeries: Surgical HX of: Thyroid Surgery Reproductive Surgeries: Comment Only: Breast Surgery (reconstructive surgery r/t breast cancer) - Family History Family History: Reports;: Family Cancer, Family Diabetes, Family Heart Disease, Family Hypertension Denies;: Family Anesthesia Reaction, Family Hematology, Family Psychiatric Problems, Family Stroke, Additional Family History - Social History Smoking Status: Never smoker Frequency of Alcohol Use: None Type of Drug Use: None Exam - Constitutional Vitals: Period Temp Pulse Resp BP Sys/Bettencourt Pulse Ox Last 24 Hr 97.0 F-98.0 F 81-126 18-21 134-154/65-78 95-99 General appearance: normal weight, no acute distress - Head Head exam: Present: normal inspection, normocephalic - Eye Eye exam: Present: EOMI Pupils: Present: JAMES - ENT ENT exam: Present: normal exam, normal external ear exam, normal oropharynx - Expanded ENT Exam Ear exam: Present: TM's normal bilaterally TM exam: cerumen impaction: Bilateral TM Mouth exam: Present: normal external inspection, moist Throat exam: Present: normal inspection - Neck Neck exam: Present: normal inspection - Respiratory Respiratory exam: Present: other (No shortness of breath or difficulty breathing ) - GI/Abdominal GI/Abdominal exam: Present: soft - Extremities Exam Extremities exam: Present: normal inspection, normal capillary refill - Neurological Exam Neurological exam: Present: alert, oriented X3, CN II-XII intact, other (She is overall hard to hear but appears to be at her baseline and is conversant overall ) - Psychiatric Psychiatric exam: Present: normal affect (Per nursing staff), normal mood (Per nursing staff) - Skin Skin exam: Present: normal color, warm Results - Labs CBC & BMP: 09/08/16 13:47 09/09/16 05:47 Lab Results: I have reviewed the past 24 hour labs Quality Measures - Stroke Onset of Symptoms Date: 09/08/16 Onset of Symptoms Time: 11:38
--- NOTE | 2016-09-09 19:13 | Internal Med Progress Note ---
Assessment and Plan (1) Altered mental status Status: Resolved Current Visit: Yes (2) Pneumonia Status: Acute Current Visit: Yes Qualifiers: Laterality: left Lung location: lower lobe of lung (3) History of stroke Status: Chronic Current Visit: Yes (4) Hypothyroid Status: Chronic Current Visit: No Qualifiers: Hypothyroidism type: acquired Qualified Code(s): E03.9 - Hypothyroidism, unspecified (5) Generalized weakness Status: Chronic Current Visit: Yes (6) Dehydration Status: Acute Current Visit: Yes (7) Urinary tract infection Status: Acute Current Visit: Yes Qualifiers: Hematuria presence: with hematuria Internal Medicine - PN: Subj Interval history: Ms. Jenkins is a 86 year old female with recent history of TIAs and stroke, history of HTN, DM, depression and anxiety, seizure disorder, hypothyroid, hyperlipidemia; had been on Coumadin therapy until recent hemorrhagic brain bleed/stroke; history of GI bleed, OA, UTI, who presented to ER after being in [facility] for one day. She had nausea and vomiting at halfway, but none here. She was found to have UTI. She did not answer questions when seen on the floor, and the nurse reports patient not speaking with nursing staff as well. Unclear whether she is having acute worsening of deafness (history of hearing loss). She now has a blank stare which is new. CT brain not indicating new stroke, but Dr. Maciel will be consulted. She may need repeat brain imaging in a couple days. However, she does have UTI, which may be affecting these symptoms. She had Levaquin in ER, and Rocephin was started on the floor. Abnormal chest x-ray left lung. Antibiotic, Rocephin, ordered as well as breathing treatments. She will not be able to perform incentive spirometry. Pulmonology consulted to further evaluate left lung, which may have pleural effusion. She is feeling much better today and able to converse. Discussed with daughter. Continue current therapy another day or two before discharge. Exam (Progress Note) - Constitutional Vitals: Period Temp Pulse Resp BP Sys/Bettencourt Pulse Ox Last 24 Hr 97.0 F-98.0 F 81-126 18-21 134-154/65-78 95-99 General appearance: no acute distress - Cardiovascular Cardiovascular exam: Present: regular rate and rhythm - GI/Abdominal GI/Abdominal exam: Present: soft. Absent: tenderness - Extremities Exam Extremities exam: Absent: edema - Neurological Exam Neurological exam: Present: alert - Psychiatric Psychiatric exam: Present: normal mood - Skin Skin exam: Present: warm, dry Results - Labs CBC & BMP: 09/08/16 13:47 09/09/16 05:47 Quality Measures - Stroke Onset of Symptoms Date: 09/08/16 Onset of Symptoms Time: 11:38
[2016-09-09] MEDS: MELATONIN 3 MG TABLET PO SCH (20:28)
[2016-09-10] MEDS: cefTRIAXone 1,000 MG in SODIUM CHLORIDE 0.9% 100 ML IV SCH ×2 (00:41→23:20)
[2016-09-10] MEDS: ALBUTEROL/IPRATROPIUM 3 ML NEB RESP TX SCH ×7 (03:00→23:34)
[2016-09-10] MEDS: SODIUM CHLORIDE 0.9% 1,000 ML IV SCH ×2 (05:46→20:00)
[2016-09-10 06:16] LABS: Calcium 9.6 MG/DL (8.5-10.1); Osmolality,Calculated 280.7 MOS/KG (273-304)
--- NOTE | 2016-09-10 09:03 | Neurology Progress Note ---
Neurology - PN : Subjective Interval history: Ms. Salas seems to be doing better and is back to her baseline neurologically. No new problems reported. Exam (Progress Note) - Constitutional Vitals: Period Temp Pulse Resp BP Sys/Bettencourt Pulse Ox Last 24 Hr 97.4 F-98.0 F 60-114 18-20 108-152/50-78 95-99 Exam: GENERAL: Patient is in no acute distress. NECK: Neck is supple. There is no JVD. No carotid bruits present. No thyroid masses. CVS: First and second heart sounds are normal. There is no S3 present. Regular rate and rhythm. RESPIRATORY: Lungs are clear to auscultation without any rales or rhonchi. ABDOMEN: Soft and non-tender. Bowel sounds are present. There is no hepatosplenomegaly. EXT: There is no palpable edema. Peripheral pulses are present. Skin: No rashes Central Nervous system: General: Alert, awake Speech: Fluent Comprehension: Fair Facial expressions: Normal Cranial Nerves: CN1/Olfactory: Normal CN II/ Optic: Normal, Visual Vidales unreliable CN III, and : JAMES & EOMI CN V: Normal & intact CN VII: face is symmetric CNVIII: Normal CN XI/X/XI/XII: Intact and Normal Motor: Bulk and Tone is normal. Strength in the left is 1/5 and in the right is 4/5 Sensory: Decreased intact for all the modalities of PP, LT and temp sense in the left Reflexes: Brisk in the left Cerebellar function: Could not do finger to nose and heel to tsai testing. Toes: Equivocal Gait: Cannot be tested Results - Labs CBC & BMP: 09/08/16 13:47 09/10/16 05:21 Assessment and Plan (1) Altered mental status Status: Resolved Assessment and plan: This is likely due to infection (UTI/pneumonia) Continue current management Sign off please call as needed Current Visit: Yes Quality Measures - Stroke Onset of Symptoms Date: 09/08/16 Onset of Symptoms Time: 11:38
[2016-09-10] MEDS: PARoxetine 10 MG TABLET PO SCH (09:51)
[2016-09-10] MEDS: LEVOTHYROXINE 150 MCG TABLET PO SCH (09:52)
[2016-09-10] MEDS: clonazePAM 0.5 MG TABLET PO SCH ×2 (09:52→20:24)
[2016-09-10] MEDS: POLYVINYL ALCOHOL 1.4% OPH SOLN 15 ML BOTTLE BOTH EYES PRN (09:52)
[2016-09-10] MEDS: ASPIRIN EC 81 MG TABLET PO SCH (09:52)
[2016-09-10] MEDS: GABAPENTIN 100 MG CAPSULE PO SCH ×2 (09:52→20:24)
--- NOTE | 2016-09-10 11:22 | Pulmonology Progress Note ---
Pulmonary - PN: Subj Interval history: The patient is an 86-year-old white lady that has had a previous CVA and has some left-sided weakness. She came in with altered mental status and was felt to possibly have a UTI. It also looks like she may have some mild left lower lobe pneumonia. She does seem to be doing better with antibiotics and respiratory therapy. She does not look short of breath lying in bed. She will answer Questions appropriately. She says she feels bad all over. She denies being short of breath. Exam (Progress Note) - Constitutional Vitals: Period Temp Pulse Resp BP Sys/Bettencourt Pulse Ox Last 24 Hr 97.3 F-98.0 F 60-114 16-20 108-152/45-78 95-99 Exam: General appearance: normal weight, no acute distress, other (She is alert and talking okay.) - Head Head exam: Present: normal inspection, normocephalic - Eye Eye exam: Present: EOMI. Absent: scleral icterus Pupils: Present: JAMES - ENT ENT exam: Present: normal exam - Neck Neck exam: Present: normal inspection. Absent: lymphadenopathy, meningismus, thyromegaly - Respiratory Respiratory exam: Present: She has fairly good breath sounds bilaterally. She has some minimal crackles in the left base but is moving air okay. - Cardiovascular Cardiovascular exam: Present: regular rate and rhythm. Absent: gallop, systolic murmur - GI/Abdominal GI/Abdominal exam: Present: normal bowel sounds, soft. Absent: organomegaly, tenderness - Extremities Exam Extremities exam: Absent: calf tenderness, edema - Neurological Exam Neurological exam: Present: altered (She is talking better and looks reasonably comfortable. She is weaker on the left side than the right) - Psychiatric Psychiatric exam: Present: flat affect - Skin Skin exam: Present: warm, dry Results - Labs CBC & BMP: 09/08/16 13:47 09/10/16 05:21 Assessment and Plan (1) Altered mental status Status: Resolved Assessment and plan: Patient came in with lethargy and this is probably due to infection and mild dehydration. She is more alert today. Her mental status is probably back to baseline now. Current Visit: Yes (2) Pneumonia Status: Acute Assessment and plan: The patient has a left lower lobe consolidation and will treat as pneumonia. She is getting antibiotics and respiratory therapy and looks like she is breathing comfortably. Will check a chest x-ray tomorrow. Current Visit: Yes Qualifiers: Laterality: left Lung location: lower lobe of lung (3) History of stroke Status: Chronic Assessment and plan: Patient has an old CVA on her CT. She does have left-sided weakness. Current Visit: Yes (4) Generalized weakness Status: Chronic Assessment and plan: Patient is an elderly lady and is quite debilitated. Current Visit: Yes (5) Urinary tract infection Status: Acute Assessment and plan: Patient has gram-negative rods in her urine. She is getting antibiotic therapy. Current Visit: Yes Qualifiers: Hematuria presence: with hematuria
[2016-09-10] MEDS ORDERED: POTASSIUM CHLORIDE 20 MEQ TABLET PO ONE (12:48)
[2016-09-10] MEDS: LEVOFLOXACIN INJ 500 MG in PREMIX 1 EACH IV SCH (14:54)
[2016-09-10] MEDS: TOBRAMYCIN/DEXAMETHASONE 0.3%-0.1% OPH SUSP 2.5 ML BOTTLE BOTH EYES SCH ×3 (14:54→20:26)
[2016-09-10] MEDS: POTASSIUM CHLORIDE 20 MEQ TABLET PO SCH (20:24)
[2016-09-10] MEDS: MELATONIN 3 MG TABLET PO SCH (20:24)
[2016-09-10] MEDS ORDERED: GABITRIL 4 MG PO SCH (21:00)
--- NOTE | 2016-09-10 21:53 | Internal Med Progress Note ---
Assessment and Plan (1) Altered mental status Status: Resolved Current Visit: Yes Qualifiers: Altered mental status type: delirium Qualified Code(s): R41.0 - Disorientation, unspecified (2) Pneumonia Status: Acute Current Visit: Yes Qualifiers: Laterality: left Lung location: lower lobe of lung (3) History of stroke Status: Chronic Current Visit: Yes (4) Hypothyroid Status: Chronic Current Visit: No Qualifiers: Hypothyroidism type: acquired Qualified Code(s): E03.9 - Hypothyroidism, unspecified (5) Generalized weakness Status: Chronic Current Visit: Yes (6) Dehydration Status: Acute Current Visit: Yes (7) Urinary tract infection Status: Acute Current Visit: Yes Qualifiers: Hematuria presence: with hematuria Internal Medicine - PN: Subj Interval history: Ms. Jenkins is a 86 year old female with recent history of TIAs and stroke, history of HTN, DM, depression and anxiety, seizure disorder, hypothyroid, hyperlipidemia; had been on Coumadin therapy until recent hemorrhagic brain bleed/stroke; history of GI bleed, OA, UTI, who presented to ER after being in skilled nursing for one day. She had nausea and vomiting at skilled nursing, but none here. She was found to have UTI. She did not answer questions when seen on the floor, and the nurse reports patient not speaking with nursing staff as well. Unclear whether she is having acute worsening of deafness (history of hearing loss). She now has a blank stare which is new. CT brain not indicating new stroke, but Dr. Maciel will be consulted. She may need repeat brain imaging in a couple days. However, she does have UTI, which may be affecting these symptoms. She had Levaquin in ER, and Rocephin was started on the floor. Abnormal chest x-ray left lung. Antibiotic, Rocephin, ordered as well as breathing treatments. She will not be able to perform incentive spirometry. Pulmonology consulted to further evaluate left lung, which may have pleural effusion. She is feeling much better today and able to converse. Discussed with daughter. Continue current therapy another day or two before discharge. Potassium low today and will replace. She may can go back to skilled nursing over the weekend. Exam (Progress Note) - Constitutional Vitals: Period Temp Pulse Resp BP Sys/Bettencourt Pulse Ox Last 24 Hr 97.3 F-97.9 F 85-114 16-22 108-160/45-84 96-99 Exam: General appearance: no acute distress - Cardiovascular Cardiovascular exam: Present: regular rate and rhythm - GI/Abdominal GI/Abdominal exam: Present: soft. Absent: tenderness - Extremities Exam Extremities exam: Absent: edema - Neurological Exam Neurological exam: Present: alert - Psychiatric Psychiatric exam: Present: normal mood - Skin Skin exam: Present: warm, dry Results - Labs CBC & BMP: 09/08/16 13:47 09/10/16 05:21 Quality Measures - Stroke Onset of Symptoms Date: 09/08/16 Onset of Symptoms Time: 11:38
--- NOTE | 2016-09-10 22:08 | Discharge Summary ---
<TiIsrraeln - Last Filed: 09/11/16 11:51> Hospital Course - Hospital Course Hospital Course: Ms. Jenkins is a 86 year old female with recent history of TIAs and stroke, history of HTN, DM, depression and anxiety, seizure disorder, hypothyroid, hyperlipidemia; had been on Coumadin therapy until recent hemorrhagic brain bleed/stroke; history of GI bleed, OA, UTI, who presented to ER after being in [facility] for one day. She had nausea and vomiting at [facility], but none here. She was found to have UTI. She did not answer questions when seen on the floor, and the nurse reports patient not speaking with nursing staff as well. Unclear whether she is having acute worsening of deafness (history of hearing loss). She now has a blank stare which is new. CT brain not indicating new stroke, but Dr. Maciel will be consulted. She may need repeat brain imaging in a couple days. However, she does have UTI, which may be affecting these symptoms. She had Levaquin in ER, and Rocephin was started on the floor. Abnormal chest x-ray left lung. Antibiotic, Rocephin, ordered as well as breathing treatments. She will not be able to perform incentive spirometry. Pulmonology consulted to further evaluate left lung, which may have pleural effusion. She is feeling much better today and able to converse. Discussed with daughter. Continue current therapy another day or two before discharge. Potassium low today and will replace. She may can go back to [facility] over the weekend. Overall doing better. Chest x-ray to be repeated in the morning. If improved, she can be discharged to [facility]. Specialty Discharge - Follow Up or Referrals Follow up with: Jemma Leon DO [Primary Care Provider] - Discharge Plan - Discharge Data Disposition: Disch/Xfer to Snf - Discharge Medications New Potassium Chloride Cap/Tab [K Dur] 20 meq PO BID tablet Albuterol/Ipratropium Neb [Duoneb] 3 ml RESP TX RT Q4H Cefuroxime Tab [Ceftin] 250 mg PO BID #20 tablet Continue Levothyroxine Tab [Synthroid Tab] 150 mcg PO DAILY Tiagabine HCl [Gabitril] 4 mg PO BEDTIME Tobramycin/Dexamethasone [Tobramycin/Dexamethasone Oph Susp] 1 drop BOTH EYES TID Acetaminophen Tab [Tylenol Tab] 650 mg PO Q4H PRN PRN Reason: Pain clonazePAM TAB [KlonoPIN] 0.5 mg PO BID Gabapentin 100 mg PO BID PARoxetine HCl [Paxil] 30 mg PO DAILY Polyvinyl Alcohol [Artificial Tears] 15 ml BOTH EYES DAILY PRN PRN Reason: Dry Eyes Melatonin 6 mg PO BEDTIME Potassium Chloride Cap/Tab [K Dur] 20 meq PO BID #60 tablet Aspirin [Aspirin EC] 81 mg PO AC BREAKFAST #30 tablet. 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) Exam - Constitutional Vitals: Period Temp Pulse Resp BP Sys/Bettencourt Pulse Ox Last 24 Hr 96.8 F-98.8 F 79-110 17-22 109-160/60-84 93-99 Discharge Results Procedures and tests throughout hospitalization: Pending Orders 09/09/16 05:47 Blood Culture Routine Labs on day of discharge: Labs from last 24 hours 09/11/16 03:51 Sodium 135 L Potassium 3.4 L Chloride 104 Carbon Dioxide 24 Anion Gap 10.4 BUN 10 Creatinine 0.40 L GFR Calculation 98 BUN/Creatinine Ratio 25.00 H Glucose 179 H Calculated Osmolality 272.1 L Calcium 8.9 Preliminary micro results at discharge 09/09/16 05:47 Blood Culture - Preliminary Blood No growth at 1 day 09/09/16 05:47 Blood Culture - Preliminary Blood No growth at 1 day DS: Provider Date of admission: 09/08/16 16:14 Primary care physician: Jemma Leon DO Attending physician on admission: Jemma Leon DO Consults: 09/08/16 18:57 Consult to Occupational Therapy [CONS] Routine Reason for Occupational Therapy: Evaluate and Treat Consult to Physical Therapy [CONS] Routine Reason for Physical Therapy: Evaluate and Treat 09/08/16 22:47 Consult to Physician [CONS] Routine Comment: abnormal chest x-ray left lung Consulting Provider: Mike Leon Person Notified: Date Notified: 09/09/16 Time Notified: 08:42 09/08/16 22:52 Consult to Dietitian [CONS] Routine Reason for Dietitian: Diet Recommendations Consult Comment: protein requirements 09/08/16 22:57 Consult to Physician [CONS] Routine Comment: acutely worsened deafness Consulting Provider: Ta Arnett Person Notified: Josafat Date Notified: 09/09/16 Time Notified: 08:38 09/09/16 07:22 Consult to Physician [CONS] Routine Comment: acute status change and history of stroke Consulting Provider: Tuan Maciel Person Notified: md gerber Date Notified: 09/09/16 Time Notified: 09:02 Discharging clinician: Rodolfo Luke DO <Jemma Leon - Last Filed: 09/17/16 12:44> Diagnosis - Discharge Diagnosis (1) Pneumonia Status: Acute (2) History of stroke Status: Chronic (3) Hypothyroid Status: Chronic (4) Generalized weakness Status: Chronic (5) Dehydration Status: Acute (6) Urinary tract infection Status: Acute Discharge Plan - Discharge Data Condition at Discharge: Stable Discharge Diet: low fat, low cholesterol Activity: as per physical therapy, increase activity as tolerated - Forms/Instructions Additional Discharge Instructions: Follow up with Dr. Helga Leon in [facility] as needed. Exam - Constitutional Exam: General appearance: no acute distress - Cardiovascular Cardiovascular exam: Present: regular rate and rhythm - GI/Abdominal GI/Abdominal exam: Present: soft. Absent: tenderness - Extremities Exam Extremities exam: Absent: edema - Neurological Exam Neurological exam: Present: alert - Psychiatric Psychiatric exam: Present: normal mood - Skin Skin exam: Present: warm, dry DS: Provider Expected date of discharge: 09/11/16
[2016-09-11] MEDS: ALBUTEROL/IPRATROPIUM 3 ML NEB RESP TX SCH ×3 (03:16→10:38)
[2016-09-11 04:27] LABS: Calcium 8.9 MG/DL (8.5-10.1); Osmolality,Calculated 272.1 MOS/KG (273-304); Potassium 3.4 MMOL/L (3.5-5.1)
[2016-09-11] MEDS: SODIUM CHLORIDE 0.9% 1,000 ML IV SCH (07:08)
--- NOTE | 2016-09-11 07:12 | XRay Report ---
XR chest 1V portable Indication: Pneumonia. Chest one view: Comparison 09/08/2016. Left lung base remains completely obscured. Diffusely coarsened interstitial markings of the lungs, cardiomegaly and calcified atheromatous disease are stable. Left axillar surgical clips in left breast implant are stable. Impression: No change. PROCEDURE INTERPRETED AT [facility] DEPARTMENT OF RADIOLOGY Final Report Signed by: Omer Lyon M.D.
[2016-09-11] MEDS: GABAPENTIN 100 MG CAPSULE PO SCH (10:11)
[2016-09-11] MEDS: LEVOFLOXACIN INJ 500 MG in PREMIX 1 EACH IV SCH (10:11)
[2016-09-11] MEDS: clonazePAM 0.5 MG TABLET PO SCH (10:11)
[2016-09-11] MEDS: PARoxetine 10 MG TABLET PO SCH (10:11)
[2016-09-11] MEDS: POTASSIUM CHLORIDE 20 MEQ TABLET PO SCH (10:11)
[2016-09-11] MEDS: ASPIRIN EC 81 MG TABLET PO SCH (10:11)
[2016-09-11] MEDS: LEVOTHYROXINE 150 MCG TABLET PO SCH (10:11)
--- NOTE | 2016-09-11 10:43 | Pulmonology Progress Note ---
Pulmonary - PN: Subj Interval history: 86-year-old female with a history of CVA admitted for altered mental status thought to be due to UTI and possible pneumonia. Today patient is significantly improved with respect to mental status. She denies any pulmonary complaints and feels her breathing is at her baseline. Exam (Progress Note) - Constitutional Vitals: Period Temp Pulse Resp BP Sys/Bettencourt Pulse Ox Last 24 Hr 96.8 F-98.8 F 79-110 17-22 109-160/60-84 93-99 General appearance: normal weight - Head Head exam: Present: normal inspection - Eye Eye exam: Present: EOMI Pupils: Present: JAMES - Neck Neck exam: Present: normal inspection - Respiratory Respiratory exam: Present: clear to auscultation bilaterally - Cardiovascular Cardiovascular exam: Present: regular rate and rhythm - GI/Abdominal GI/Abdominal exam: Present: normal bowel sounds - Neurological Exam Neurological exam: Present: alert, oriented X3 - Skin Skin exam: Present: normal color, warm, dry Results - Labs CBC & BMP: 09/08/16 13:47 09/11/16 03:51 - Diagnostic Findings Procedure: Chest x-ray: image reviewed by me, report reviewed by me Assessment and Plan (1) Pneumonia Status: Acute Assessment and plan: Left lower lobe consolidation being treated as pneumonia. Chest x-ray today shows continued opacification. Recommend patient continue on course of antibiotics with Levaquin and repeat chest imaging in 4-6 weeks. If left lower lobe consolidation persists at that time, recommend CT chest for further evaluation. Current Visit: Yes Qualifiers: Pneumonia type: due to unspecified organism Laterality: left Lung location: lower lobe of lung Qualified Code(s): J18.1 - Lobar pneumonia, unspecified organism (2) Urinary tract infection Status: Acute Assessment and plan: Due to E. coli sensitive to Levaquin. Patient can likely be treated with monotherapy Levaquin for pneumonia and UTI. Current Visit: Yes Qualifiers: Hematuria presence: with hematuria (3) Altered mental status Status: Resolved Assessment and plan: Resolved, likely due to infection. Current Visit: Yes Qualifiers: Altered mental status type: delirium Qualified Code(s): R41.0 - Disorientation, unspecified Specialty Discharge - Follow Up or Referrals Follow up with: Jemma Leon DO [Primary Care Provider] -
--- NOTE | 2016-09-11 11:56 | Family Practice Progress Note ---
Family Practice - PN: Subj Interval history: 86-year-old female with a history of CVA admitted for altered mental status thought to be due to UTI and possible pneumonia. Today patient is significantly improved with respect to mental status. She denies any pulmonary complaints and feels her breathing is at her baseline. Patient is alert no acute distress and is breathing easily. We are going to go ahead and discharge her back to the [facility] and follow-up in 4-6 weeks with repeat chest x- ray. Continue Levaquin at the [facility]. Please see Dr. Jemma Leon's discharge orders Exam (Progress Note) - Constitutional Vitals: Period Temp Pulse Resp BP Sys/Bettencourt Pulse Ox Last 24 Hr 96.8 F-98.8 F 79-110 17-22 109-160/60-84 93-99 Results - Labs CBC & BMP: 09/08/16 13:47 09/11/16 03:51 Quality Measures - Stroke Onset of Symptoms Date: 09/08/16 Onset of Symptoms Time: 11:38 Specialty Discharge - Follow Up or Referrals Follow up with: Jemma Leon DO [Primary Care Provider] -
[2016-09-11 12:31] VITALS: BP 118/58
[2016-09-11] MEDS: TOBRAMYCIN/DEXAMETHASONE 0.3%-0.1% OPH SUSP 2.5 ML BOTTLE BOTH EYES SCH (14:14)
== END 2016-09-11 13:10 | DRG 689 ==
LOC: EDBD → EDUNIT# → N.ED 13:03 → N.EDINP 16:14 → N.5E 17:28
PROVIDERS: ADMIT Internal Medicine; ATTEND Internal Medicine

== ENCOUNTER 2016-09-30 11:32 | Inpatient (IN) ==
[2016-09-30] MEDS: cefTRIAXone 1,000 MG in SODIUM CHLORIDE 0.9% 100 ML IV SCH (16:08)
[2016-09-30 16:10] LABS: Apearance,Urine Slightly Hazy (Clear); Bacteria,Urine Many /HPF (Few); Bilirubin,Urine Negative (Negative); Blood, Urine Negative (Negative); Glucose,Urine (UA) Negative (Negative); Ketones,Urine 5 mg/dL (Negative); Mucus,Urine Few /LPF (Occasional); Nitrite,Urine Negative (Negative); Protein,Urine Negative; Urine Color Yellow (Yellow); Urine Specific Gravity 1.016 (1.001-1.035); Urine Urobilinogen < 2.0 EU/DL (0.2-1.0); WBC,Urine 18 /HPF (0-6)
[2016-09-30 16:11] LABS: Albumin 2.4 G/DL (3.4-5.0); Bilirubin,Total 0.4 MG/DL (0.2-1.0); Calcium 10.4 MG/DL (8.5-10.1); Osmolality,Calculated 285.1 MOS/KG (273-304); Potassium 4.5 MMOL/L (3.5-5.1); Total Protein 5.3 G/DL (6.4-8.3)
[2016-09-30] MEDS: SODIUM CHLORIDE 0.45% 1,000 ML IV SCH (18:34)
--- NOTE | 2016-09-30 18:39 | Internal Med History&Physical ---
Assessment and Plan (1) Pneumonia Status: Acute Current Visit: Yes (2) Urinary tract infection Status: Acute Current Visit: Yes Qualifiers: Hematuria presence: without hematuria (3) Generalized weakness Status: Chronic Current Visit: Yes (4) History of stroke Status: Chronic Current Visit: Yes (5) Hypothyroid Status: Chronic Current Visit: No Qualifiers: Hypothyroidism type: acquired Qualified Code(s): E03.9 - Hypothyroidism, unspecified (6) Altered mental status Status: Acute Current Visit: Yes Qualifiers: Altered mental status type: delirium Qualified Code(s): R41.0 - Disorientation, unspecified History of Present Illness Chief complaint: confusion History of present illness: Ms. Jenkins is a 86 year old female with history of stroke, generalized weakness, failure to thrive, recurrent UTI, hypothyroid, HTN, OA, who now resides at [facility]. She was sent to [place] for acute change of status/ confusion, but family wanted her sent here. Chest x-ray at [place] indicated infiltrate and she was thought to have UTI. Rocephin has been started to cover both pneumonia and UTI. Also, breathing treatments and fluids. Alertness has improved during the day after treatment started. Home Medications Medication Instructions Recorded Confirmed Type Levothyroxine Tab [Synthroid Tab] 150 mcg PO DAILY 09/10/15 09/30/16 History Tiagabine HCl [Gabitril] 4 mg PO BEDTIME 09/10/15 09/30/16 History Gabapentin 100 mg PO BID 08/08/16 09/30/16 History PARoxetine HCl [Paxil] 30 mg PO DAILY 08/08/16 09/30/16 History clonazePAM TAB [KlonoPIN] 0.5 mg PO BID 08/08/16 09/30/16 History Aspirin [Aspirin EC] 81 mg PO AC BREAKFAST #30 tablet. 08/19/16 09/30/16 Rx Potassium Chloride Cap/Tab [K Dur] 20 meq PO BID tablet 09/10/16 09/30/16 Rx Insulin Regular [HumuLIN R] See Protocol SUBCUT ACHS 09/30/16 09/30/16 History Allergies Allergy/AdvReac Type Severity Reaction Status Date / Time fluticasone [From Flonase] AdvReac Unknown/Unable Verified 06/18/16 08:57 to obtain Medical,Surgical,& Family Hx - Medical History Cardio: History of: Cardiac Dysrhythmia (paroxysmal atrial fibrillation), Hypertension, Cardiovascular Problems (high cholesterol) Psychological: History of: Anxiety Disorders Neurology: History of: Cerebrovascular Accident, Seizures, TIA HEENT: History of: Ear Problem ([place]) Endocrine: History of: Diabetes Mellitus (NIDDM), Thyroid Disorder (Graves disease which was treated; now hypothyroid) Respiratory: History of: Pneumonia Genitourinary: History of: Recurring Urinary Tract Infections Gastrointestinal: History of: GERD Musculoskeletal: History of: Musculoskeletal Problems (OA) Reproductive: History of: Reproductive Problems (breast cancer) Other: History of: Cancer (BREAST) - Surgical History HEENT Surgeries: Surgical HX of: Thyroid Surgery Reproductive Surgeries: Comment Only: Breast Surgery (reconstructive surgery r/t breast cancer) - Family History Family History: Reports;: Family Cancer, Family Diabetes, Family Heart Disease, Family Hypertension Denies;: Family Anesthesia Reaction, Family Psychiatric Problems, Family Stroke - Social History Smoking Status: Never smoker Frequency of Alcohol Use: None Type of Drug Use: None Marital Status: Lives With:: correction Functional capacity: wheelchair bound - Constitutional Constitutional: Present: fatigue, lethargy, weakness - Respiratory Respiratory: Present: dyspnea on exertion - Musculoskeletal Musculoskeletal: Present: arthralgias, back pain - Neurological Neurological: Present: confusion - Psychiatric Psychiatric: Present: anxiety Exam - Constitutional Vitals: Period Temp Pulse Resp BP Sys/Bettencourt Pulse Ox Last 24 Hr 97.7 F-98.1 F 96-114 16-20 150-151/52-82 97-98 General appearance: no acute distress - Head Head exam: Present: normocephalic - Eye Eye exam: Present: EOMI - Respiratory Respiratory exam: Present: clear to auscultation bilaterally. Absent: rhonchi, wheezes - Cardiovascular Cardiovascular exam: Present: regular rate and rhythm - GI/Abdominal GI/Abdominal exam: Present: normal bowel sounds, soft. Absent: tenderness - Extremities Exam Extremities exam: Absent: edema - Neurological Exam Neurological exam: Present: altered - Psychiatric Psychiatric exam: Present: normal mood - Skin Skin exam: Present: warm, dry Results - Labs CBC & BMP: 09/30/16 15:31
[2016-09-30] MEDS: ALBUTEROL/IPRATROPIUM 3 ML NEB RESP TX SCH (20:20)
[2016-09-30] MEDS: GABITRIL 4 MG PO SCH (21:53)
[2016-09-30] MEDS: clonazePAM 0.5 MG TABLET PO SCH (21:54)
[2016-09-30] MEDS: GABAPENTIN 100 MG CAPSULE PO SCH (21:54)
[2016-09-30] MEDS: POTASSIUM CHLORIDE 20 MEQ TABLET PO SCH (21:54)
[2016-09-30] MEDS: INSULIN REGULAR 100 UNIT/ML SUBCUT SCH (22:00)
[2016-10-01] MEDS: ALBUTEROL/IPRATROPIUM 3 ML NEB RESP TX SCH ×4 (00:03→19:52)
[2016-10-01] MEDS: LEVOTHYROXINE 150 MCG TABLET PO SCH (06:00)
[2016-10-01] MEDS: INSULIN REGULAR 100 UNIT/ML SUBCUT SCH ×4 (07:57→21:49)
[2016-10-01] MEDS: POTASSIUM CHLORIDE 20 MEQ TABLET PO SCH ×2 (08:16→21:49)
[2016-10-01] MEDS: clonazePAM 0.5 MG TABLET PO SCH ×2 (08:16→21:49)
[2016-10-01] MEDS: ASPIRIN EC 81 MG TABLET PO SCH (08:17)
[2016-10-01] MEDS: SODIUM CHLORIDE 0.45% 1,000 ML IV SCH ×3 (08:17→21:52)
[2016-10-01] MEDS: GABAPENTIN 100 MG CAPSULE PO SCH ×2 (08:17→21:49)
[2016-10-01] MEDS ORDERED: PARoxetine 10 MG TABLET PO SCH (09:00)
--- NOTE | 2016-10-01 10:58 | XRay Report ---
XR chest 1V portable Indication: Abnormal chest x-ray. Comparison: Chest x-ray 09/30/2016 performed at [facility]. Technique: Portable AP chest was performed. Findings: Worsened airspace opacification is noted within the mid to lower left lung compared to the prior study. Nonspecific stranding in the right cardiophrenic angle is favored to reflect atelectatic changes. The right lung and left upper lung otherwise clear. Heart size is borderline. Atherosclerotic calcification of the aortic knob is demonstrated. Bones and soft tissues demonstrate no significant abnormality. Impression: 1. Appearance of the mid to lower left chest has worsened since comparison study suggesting small amount pleural fluid and/or worsening infection. 10/01/2016 10:55 AM PROCEDURE INTERPRETED AT [facility] DEPARTMENT OF RADIOLOGY Final Report Signed by: Dr. Wicho Schreiber
--- NOTE | 2016-10-01 14:41 | Internal Med Progress Note ---
Assessment and Plan (1) Pneumonia Status: Acute Current Visit: Yes (2) Urinary tract infection Status: Acute Current Visit: Yes Qualifiers: Hematuria presence: without hematuria (3) Generalized weakness Status: Chronic Current Visit: Yes (4) History of stroke Status: Chronic Current Visit: Yes (5) Hypothyroid Status: Chronic Current Visit: No Qualifiers: Hypothyroidism type: acquired Qualified Code(s): E03.9 - Hypothyroidism, unspecified (6) Altered mental status Status: Acute Current Visit: Yes Qualifiers: Altered mental status type: delirium Qualified Code(s): R41.0 - Disorientation, unspecified (7) Depressed affect Status: Acute Current Visit: Yes Internal Medicine - PN: Subj Interval history: Ms. Jenkins is a 86 year old female with history of stroke, generalized weakness, failure to thrive, recurrent UTI, hypothyroid, HTN, OA, who now resides at [facility]. She was sent to [place] for acute change of status/ confusion, but family wanted her sent here. Chest x-ray at [place] indicated infiltrate and she was thought to have UTI. Rocephin has been started to cover both pneumonia and UTI. Also, breathing treatments and fluids. Alertness has improved during the day after treatment started. Today, Tuesday, she appears depressed. She is awake but uncommunicative. Exam (Progress Note) - Constitutional Vitals: Period Temp Pulse Resp BP Sys/Bettencourt Pulse Ox Last 24 Hr 97.4 F-98.2 F 74-106 16-20 113-150/52-74 92-100 Exam: General appearance: no acute distress - Respiratory Respiratory exam: Present: clear to auscultation bilaterally - Cardiovascular Cardiovascular exam: Present: regular rate and rhythm - GI/Abdominal GI/Abdominal exam: Present: normal bowel sounds, soft - Extremities Exam Extremities exam: Absent: edema - Neurological Exam Neurological exam: Present: alert - Psychiatric Psychiatric exam: Present: depressed mood - Skin Skin exam: Present: warm, dry Results - Labs CBC & BMP: 09/30/16 15:31
[2016-10-01] MEDS: cefTRIAXone 1,000 MG in SODIUM CHLORIDE 0.9% 100 ML IV SCH (16:41)
[2016-10-01] MEDS: POLYVINYL ALCOHOL 1.4% OPH SOLN 15 ML BOTTLE BOTH EYES PRN (16:41)
[2016-10-01] MEDS: DESITIN 4OZ/NYSTATIN 15 GRAM MIXTURE PASTE TOP SCH (21:52)
[2016-10-01] MEDS: GABITRIL 4 MG PO SCH (22:11)
[2016-10-02] MEDS: ALBUTEROL/IPRATROPIUM 3 ML NEB RESP TX SCH ×4 (01:44→19:22)
[2016-10-02] MEDS: SODIUM CHLORIDE 0.45% 1,000 ML IV SCH ×5 (02:37→22:22)
[2016-10-02] MEDS: methylPREDNISolone SOD SUC 40 MG/1 ML VIAL IV SCH ×2 (05:00→17:06)
[2016-10-02] MEDS: POLYVINYL ALCOHOL 1.4% OPH SOLN 15 ML BOTTLE BOTH EYES PRN ×2 (05:02→20:31)
[2016-10-02] MEDS: LEVOTHYROXINE 150 MCG TABLET PO SCH (06:15)
[2016-10-02 06:31] LABS: Basophils % 0.3 % (0.0-0.8); Eosinophils # 0.1 10*3/uL (0.0-0.87); Eosinophils % 0.8 % (0.00-10.9); Hematocrit 28.3 VOL% (35.7-47.0); Hemoglobin 9.1 GM/DL (12.0-16.0); Immature Granulocytes Absolute 0.35 #; Lymphocytes # 1.5 10*3/uL (1.4-4.0); Lymphocytes % 12.7 % (21.3-54.2); Mean Corpuscular HGB Conc 32.2 GM/DL (32-36); Mean Corpuscular Hemoglobin 27 PG (27-34); Mean Corpuscular Volume 82.3 FL (87-102); Mean Platelet Volume 9.7 FL (9.6-12.0); Monocytes # 0.9 10*3/uL (0.11-0.8); Monocytes % 7.4 % (1.7-12.7); NRBC # 0.02 10*3/uL; Neutrophils # 8.7 10*3/uL (1.4-7.4); Neutrophils % 75.8 % (38.7-73.9); Platelet Count 237 T/CUMM (130-400); Red Blood Count 3.44 MC/CUMM (3.8-5.5); Red Cell Distribution Width 16.8 % (9.3-17.3); White Blood Count 11.5 T/CUMM (4-12)
[2016-10-02 07:16] LABS: Bilirubin,Total 0.6 MG/DL (0.2-1.0); Calcium 9.1 MG/DL (8.5-10.1); Magnesium 1.7 MG/DL (1.8-2.4); Osmolality,Calculated 274.7 MOS/KG (273-304); Potassium 3.9 MMOL/L (3.5-5.1); Total Protein 4.6 G/DL (6.4-8.3)
[2016-10-02] MEDS: BUDESONIDE 0.25 MG/2 ML NEB RESP TX SCH ×2 (07:45→19:22)
[2016-10-02] MEDS: INSULIN REGULAR 100 UNIT/ML SUBCUT SCH ×4 (08:29→20:29)
--- NOTE | 2016-10-02 08:41 | Family Practice Progress Note ---
Family Practice - PN: Subj Interval history: Patient seen this morning. She is somewhat lethargic but does respond slowly but not very oriented. Vital signs are stable at this time and she had been voiding well. CBC is fairly normal except for low hemoglobin and hematocrit 9 and 28. BMP is grossly normal. Blood sugars are and tolerable range. Continue current therapy at this time Exam (Progress Note) - Constitutional Vitals: Period Temp Pulse Resp BP Sys/Bettencourt Pulse Ox Last 24 Hr 97.5 F-99.1 F 66-111 18-22 114-148/55-84 95-99 Exam: Generally unchanged. HEENT neck is supple. Trachea midline. Lungs few basilar rales. Clear otherwise. Abdomen soft, nondistended. Extremities no clubbing, cyanosis, or edema Results - Labs CBC & BMP: 10/02/16 05:35 10/02/16 05:35
[2016-10-02] MEDS ORDERED: MAGNESIUM SULF RIDER 2 GM in PREMIX 1 EACH IV PRN (08:53)
[2016-10-02] MEDS: POTASSIUM CHLORIDE 20 MEQ TABLET PO SCH ×2 (09:00→20:30)
[2016-10-02] MEDS: clonazePAM 0.5 MG TABLET PO SCH ×2 (09:00→20:30)
[2016-10-02] MEDS: ASPIRIN EC 81 MG TABLET PO SCH (09:00)
[2016-10-02] MEDS: PARoxetine 20 MG TABLET PO SCH (09:01)
[2016-10-02] MEDS: AZITHROMYCIN INJ 250 MG in SODIUM CHLORIDE 0.9% 250 ML IV SCH (09:01)
[2016-10-02] MEDS: GABAPENTIN 100 MG CAPSULE PO SCH ×2 (09:01→20:30)
[2016-10-02] MEDS: DESITIN 4OZ/NYSTATIN 15 GRAM MIXTURE PASTE TOP SCH ×2 (09:01→20:31)
--- NOTE | 2016-10-02 16:02 | Pulmonology Consult Note ---
Assessment and Plan (1) Abnormal radiographic examination Status: Acute Assessment and plan: Patient with unchanged obscuration of the hemidiaphragm. While this could be a pleural effusion, she has no fever, leukocytosis, or dyspnea that would prompt a thoracentesis. Additionally, I do not feel that she understands well enough to consent to the procedure. If she develops any of the above issues, need to get CT or US to properly assess whether there is any effusion. Please call with any further questions Current Visit: Yes History of Present Illness History of present illness: Ms. Jenkins is a 86 year old female Consulted by IM for evaluation of pleural effusion. Patient awake but hard to get her to answer questions. States she feels a little better today. Doesn't endorse any pulmonary symptoms. [facility] Home Medications Medication Instructions Recorded Confirmed Type Levothyroxine Tab [Synthroid Tab] 150 mcg PO DAILY 09/10/15 09/30/16 History Tiagabine HCl [Gabitril] 4 mg PO BEDTIME 09/10/15 09/30/16 History Gabapentin 100 mg PO BID 08/08/16 09/30/16 History PARoxetine HCl [Paxil] 30 mg PO DAILY 08/08/16 09/30/16 History clonazePAM TAB [KlonoPIN] 0.5 mg PO BID 08/08/16 09/30/16 History Aspirin [Aspirin EC] 81 mg PO AC BREAKFAST #30 tablet. 08/19/16 09/30/16 Rx Potassium Chloride Cap/Tab [K Dur] 20 meq PO BID tablet 09/10/16 09/30/16 Rx Insulin Regular [HumuLIN R] See Protocol SUBCUT ACHS 09/30/16 09/30/16 History Allergies Allergy/AdvReac Type Severity Reaction Status Date / Time fluticasone [From Flonase] AdvReac Unknown/Unable Verified 06/18/16 08:57 to obtain Exam (Pulmonay) H&P - Constitutional Vitals: Period Temp Pulse Resp BP Sys/Bettencourt Pulse Ox Last 24 Hr 97.5 F-976 F 66-111 16-22 109-148/55-84 95-99 General appearance: normal weight, no acute distress - Head Head exam: Present: normal inspection - Respiratory Respiratory exam: Present: clear to auscultation bilaterally - Cardiovascular Cardiovascular exam: Present: regular rate and rhythm - GI/Abdominal GI/Abdominal exam: Present: normal bowel sounds Medical,Surgical,& Family Hx - Medical History Cardio: History of: Cardiac Dysrhythmia (paroxysmal atrial fibrillation), Hypertension, Cardiovascular Problems (high cholesterol) Psychological: History of: Anxiety Disorders Neurology: History of: Cerebrovascular Accident, Seizures, TIA HEENT: History of: Ear Problem ([place]) Endocrine: History of: Diabetes Mellitus (NIDDM), Thyroid Disorder (Graves disease which was treated; now hypothyroid) Respiratory: History of: Pneumonia Genitourinary: History of: Recurring Urinary Tract Infections Gastrointestinal: History of: GERD Musculoskeletal: History of: Musculoskeletal Problems (OA) Reproductive: History of: Reproductive Problems (breast cancer) Other: History of: Cancer (BREAST) - Surgical History HEENT Surgeries: Surgical HX of: Thyroid Surgery Reproductive Surgeries: Comment Only: Breast Surgery (reconstructive surgery r/t breast cancer) - Family History Family History: Reports;: Family Cancer, Family Diabetes, Family Heart Disease, Family Hypertension Denies;: Family Anesthesia Reaction, Family Psychiatric Problems, Family Stroke - Social History Smoking Status: Never smoker Frequency of Alcohol Use: None Type of Drug Use: None Results - Labs CBC & BMP: 10/02/16 05:35 10/02/16 05:35 Lab Results: I have reviewed the past 24 hour labs - Diagnostic Findings Procedure: Chest x-ray: image reviewed by me (reviewed images and report. Obscuration of left hemidiaphragm, unchanged from September 11 film, effusion vs atelectasis)
[2016-10-02] MEDS: cefTRIAXone 1,000 MG in SODIUM CHLORIDE 0.9% 100 ML IV SCH (17:07)
[2016-10-02] MEDS: GABITRIL 4 MG PO SCH (22:23)
[2016-10-03] MEDS: ALBUTEROL/IPRATROPIUM 3 ML NEB RESP TX SCH ×4 (01:00→18:58)
[2016-10-03] MEDS: methylPREDNISolone SOD SUC 40 MG/1 ML VIAL IV SCH ×2 (03:46→15:46)
[2016-10-03] MEDS: LEVOTHYROXINE 150 MCG TABLET PO SCH (06:20)
[2016-10-03 06:38] LABS: Basophils % 0.2 % (0.0-0.8); Eosinophils % 0.2 % (0.00-10.9); Hematocrit 26.3 VOL% (35.7-47.0); Hemoglobin 8.4 GM/DL (12.0-16.0); Immature Granulocytes Absolute 0.41 #; Lymphocytes % 9.7 % (21.3-54.2); Mean Corpuscular HGB Conc 31.9 GM/DL (32-36); Mean Corpuscular Hemoglobin 26 PG (27-34); Mean Corpuscular Volume 81.2 FL (87-102); Mean Platelet Volume 9.8 FL (9.6-12.0); Monocytes # 0.7 10*3/uL (0.11-0.8); NRBC # 0.02 10*3/uL; Neutrophils % 78.9 % (38.7-73.9); Platelet Count 252 T/CUMM (130-400); Red Blood Count 3.24 MC/CUMM (3.8-5.5); Red Cell Distribution Width 16.4 % (9.3-17.3); White Blood Count 10.2 T/CUMM (4-12)
[2016-10-03 07:06] LABS: Bilirubin,Total 0.7 MG/DL (0.2-1.0); Calcium 8.8 MG/DL (8.5-10.1); Osmolality,Calculated 271.8 MOS/KG (273-304); Potassium 3.7 MMOL/L (3.5-5.1); Total Protein 4.6 G/DL (6.4-8.3)
[2016-10-03 07:14] LABS: Calcium 8.5 MG/DL (8.5-10.1); Magnesium 2.2 MG/DL (1.8-2.4); Osmolality,Calculated 271.8 MOS/KG (273-304); Potassium 3.7 MMOL/L (3.5-5.1)
[2016-10-03 07:23] LABS: Hematocrit 26.9 VOL% (35.7-47.0); Hemoglobin 8.7 GM/DL (12.0-16.0)
[2016-10-03] MEDS: BUDESONIDE 0.25 MG/2 ML NEB RESP TX SCH ×2 (07:23→18:58)
[2016-10-03 07:35] LABS: Band Neutrophils 3 % (0-10); Hypochromasia Slight; Lymphocytes 4 % (20-55); Myelocytes 3 %; Platelet Estimate Adequate; Polychromasia Slight; Segmented Neutrophils 85 % (50-85); Total Cells Counted 100
[2016-10-03] MEDS: ASPIRIN EC 81 MG TABLET PO SCH (08:32)
[2016-10-03] MEDS: GABAPENTIN 100 MG CAPSULE PO SCH ×2 (08:32→21:49)
[2016-10-03] MEDS: clonazePAM 0.5 MG TABLET PO SCH ×2 (08:32→21:49)
[2016-10-03] MEDS: PARoxetine 20 MG TABLET PO SCH (08:33)
[2016-10-03] MEDS: POTASSIUM CHLORIDE 20 MEQ TABLET PO SCH ×2 (08:33→21:50)
[2016-10-03] MEDS: SODIUM CHLORIDE 0.45% 1,000 ML IV SCH ×2 (08:33→15:49)
[2016-10-03] MEDS: AZITHROMYCIN INJ 250 MG in SODIUM CHLORIDE 0.9% 250 ML IV SCH (08:39)
[2016-10-03] MEDS: DESITIN 4OZ/NYSTATIN 15 GRAM MIXTURE PASTE TOP SCH ×2 (08:43→21:51)
[2016-10-03] MEDS: INSULIN REGULAR 100 UNIT/ML SUBCUT SCH ×4 (09:08→21:50)
--- NOTE | 2016-10-03 09:26 | Family Practice Progress Note ---
Family Practice - PN: Subj Interval history: Patient seen this morning. She is somewhat lethargic but does respond slowly but not very oriented. Vital signs are stable at this time and she had been voiding well. CBC is fairly normal except for low hemoglobin and hematocrit 9 and 28. BMP is grossly normal. Blood sugars are and tolerable range. Continue current therapy at this time 10/03/2016: Patient is grossly unchanged. Remains lethargic does answer simple questions but is very slow. Her hemoglobin hematocrit going down very slightly. Her BMP is fairly normal but it is noted that she has a low albumin. She is a DNR and we will continue this status. Will repeat chest x-ray in the morning but otherwise will continue to give medications continue current therapy Exam (Progress Note) - Constitutional Vitals: Period Temp Pulse Resp BP Sys/Bettencourt Pulse Ox Last 24 Hr 97.6 F-976 F 69-104 16-20 109-132/62-74 95-99 Exam: Generally unchanged. HEENT neck is supple. Trachea midline. Lungs few basilar rales. Clear otherwise. Abdomen soft, nondistended. Extremities no clubbing, cyanosis, or edema Neurologically no lateralizing signs Results - Labs CBC & BMP: 10/03/16 07:09 10/03/16 05:59 Assessment and Plan (1) Abnormal radiographic examination Status: Acute Assessment and plan: 10/03/2016 chest x-ray in the morning to see if there has been any pulmonary improvement from the last Current Visit: Yes
[2016-10-03] MEDS: cefTRIAXone 1,000 MG in SODIUM CHLORIDE 0.9% 100 ML IV SCH (15:46)
[2016-10-03] MEDS: POLYVINYL ALCOHOL 1.4% OPH SOLN 15 ML BOTTLE BOTH EYES PRN (21:51)
[2016-10-03] MEDS: GABITRIL 4 MG PO SCH (23:16)
[2016-10-04] MEDS: ALBUTEROL/IPRATROPIUM 3 ML NEB RESP TX SCH ×4 (00:31→19:16)
[2016-10-04] MEDS: SODIUM CHLORIDE 0.45% 1,000 ML IV SCH ×3 (00:41→13:50)
[2016-10-04] MEDS: methylPREDNISolone SOD SUC 40 MG/1 ML VIAL IV SCH ×2 (04:42→16:59)
[2016-10-04] MEDS: LEVOTHYROXINE 150 MCG TABLET PO SCH (06:11)
[2016-10-04 06:53] LABS: Bilirubin,Total 0.4 MG/DL (0.2-1.0); Osmolality,Calculated 275.7 MOS/KG (273-304); Potassium 3.8 MMOL/L (3.5-5.1); Total Protein 4.6 G/DL (6.4-8.3)
[2016-10-04] MEDS: BUDESONIDE 0.25 MG/2 ML NEB RESP TX SCH ×2 (07:17→19:16)
--- NOTE | 2016-10-04 07:26 | XRay Report ---
Exam: XR chest 1V portable Indication: Pneumonia Comparison study: Prior chest radiograph 10/01/2016 at 1033 hours Findings: Similar left basilar opacities may represent underlying infiltrate and/or moderate pleural effusion. Cardiac silhouette and mediastinal contours otherwise appear similar to prior. There is no pneumothorax. Atherosclerotic changes of the thoracic aorta noted. Left axillary soft tissue cindy appears similar to prior. Osseous structures are stable. Impression: Similar left basilar opacities may represent atelectasis and/or underlying infiltrate with small to moderate pleural effusion. PROCEDURE INTERPRETED AT [facility] DEPARTMENT OF RADIOLOGY Final Report Signed by: Adeel Ferraro
[2016-10-04] MEDS: INSULIN REGULAR 100 UNIT/ML SUBCUT SCH ×4 (07:53→22:25)
[2016-10-04] MEDS: ASPIRIN EC 81 MG TABLET PO SCH (08:32)
[2016-10-04] MEDS: AZITHROMYCIN INJ 250 MG in SODIUM CHLORIDE 0.9% 250 ML IV SCH (08:53)
[2016-10-04] MEDS: PARoxetine 20 MG TABLET PO SCH (09:51)
[2016-10-04] MEDS: clonazePAM 0.5 MG TABLET PO SCH ×2 (09:52→22:25)
[2016-10-04] MEDS: GABAPENTIN 100 MG CAPSULE PO SCH ×2 (09:52→22:25)
[2016-10-04] MEDS: POTASSIUM CHLORIDE 20 MEQ TABLET PO SCH ×2 (09:53→22:25)
[2016-10-04] MEDS: DESITIN 4OZ/NYSTATIN 15 GRAM MIXTURE PASTE TOP SCH ×2 (09:54→22:26)
--- NOTE | 2016-10-04 12:31 | Pulmonology Progress Note ---
Pulmonary - PN: Subj Interval history: Patient is an 86-year-[place] has a history of having a previous CVA. She was recently here with some mild pneumonia. She is sent back in with some coughing and chest congestion and altered mental status. She continues to have some left lower lobe infiltrate. There is also question of a small left pleural effusion. She has significant dementia and really cannot give much history. She is eating reasonably well and the nurses do not report a lot of distress at all. She does not seem to be coughing too badly at present. Exam (Progress Note) - Constitutional Vitals: Period Temp Pulse Resp BP Sys/Bettencourt Pulse Ox Last 24 Hr 97.1 F-98.9 F 88-109 18-20 108-142/51-72 94-100 Exam: General appearance: normal weight, no acute distress, other (She is sitting up and eating a little bit. She is quite confused.) - Head Head exam: Present: normal inspection, normocephalic - Eye Eye exam: Present: EOMI. Absent: scleral icterus Pupils: Present: JAMES - ENT ENT exam: Present: normal exam - Neck Neck exam: Present: normal inspection. Absent: lymphadenopathy, meningismus, thyromegaly - Respiratory Respiratory exam: Present: rales, rhonchi, other (She does have some coarse breath sounds with rhonchi and crackles in the left base.). She is moving air okay however. Absent: accessory muscle use - Cardiovascular Cardiovascular exam: Present: regular rate and rhythm. Absent: gallop, systolic murmur - GI/Abdominal GI/Abdominal exam: Present: normal bowel sounds, soft. Absent: organomegaly, tenderness - Extremities Exam Extremities exam: Absent: calf tenderness, edema, she has no signs of phlebitis. - Neurological Exam Neurological exam: Present: altered (She does respond but is not talking that much. She is very organic) - Psychiatric Psychiatric exam: Present: flat affect - Skin Skin exam: Present: warm, dry Results - Labs CBC & BMP: 10/03/16 07:09 10/04/16 05:38 - Diagnostic Findings Procedure: Chest x-ray: image reviewed by me, report reviewed by me (Chest x- ray does show infiltrate and questionable effusion in the left base.) Assessment and Plan (1) Multi-infarct dementia Status: Acute Assessment and plan: The patient is quite debilitated and is a [facility]-[place] patient. She is quite confused a lot. Current Visit: Yes (2) Pneumonia Status: Acute Assessment and plan: The patient continues to have a left lower lobe consolidation. Will review the old records and she may need a bronchoscope. She is getting antibiotics and respiratory therapy. Current Visit: Yes (3) History of stroke Status: Chronic Assessment and plan: The patient has had previous strokes and is not very active. Current Visit: Yes
[2016-10-04] MEDS ORDERED: FUROSEMIDE 40 MG/4 ML VIAL IV ONE (12:34)
--- NOTE | 2016-10-04 14:19 | Case Mgmt Physician Query Form ---
TB Signs and Symptoms Screening ([place]) INSTRUCTIONS: To be completed annually on residents/staff with a significant Tuberculin Skin Test (TST) upon admission/hire or a prior significant TST. To be completed on all staff at hire. Please respond to each listed symptom with an (X) in either the "YES" or "NO" box. Do you currently have any of the following symptoms: YES NO ( ) (x ) A cough If yes, is it: ( ) Productive ( ) Non- productive ( ) (x ) Hemoptysis (spitting up blood) ( ) (x ) Chest pains (x ) ( ) Weight Loss ( ) ( x) Fever ( ) (x ) Night Sweats (x ) ( ) Weakness (x ) ( ) Loss of Appetite ( ) (x ) Difficulty Breathing If you answered YES" to any of the above questions, how long have symptoms been present? Comments: Symptoms have been gradual with chronic illness. If you have any questions, please contact me . Thank you, Lore BOOTH Email: [email or web address] [facility] CENTERLindsay
[2016-10-04] MEDS ORDERED: TUBERCULIN SKIN TEST 0.1 ML SYRINGE INTRADERM ONE (14:31)
[2016-10-04] MEDS: cefTRIAXone 1,000 MG in SODIUM CHLORIDE 0.9% 100 ML IV SCH (16:59)
--- NOTE | 2016-10-04 18:34 | Internal Med Progress Note ---
Assessment and Plan (1) Pneumonia Status: Acute Current Visit: Yes (2) Urinary tract infection Status: Resolved Current Visit: Yes Qualifiers: Hematuria presence: without hematuria (3) Generalized weakness Status: Chronic Current Visit: Yes (4) History of stroke Status: Chronic Current Visit: Yes (5) Hypothyroid Status: Chronic Current Visit: No Qualifiers: Hypothyroidism type: acquired Qualified Code(s): E03.9 - Hypothyroidism, unspecified (6) Altered mental status Status: Acute Current Visit: Yes Qualifiers: Altered mental status type: delirium Qualified Code(s): R41.0 - Disorientation, unspecified (7) Depressed affect Status: Acute Current Visit: Yes Internal Medicine - PN: Subj Interval history: Ms. Jenkins is a 86 year old female with history of stroke, generalized weakness, failure to thrive, recurrent UTI, hypothyroid, HTN, OA, who now resides at [facility]. She was sent to [place] for acute change of status/ confusion, but family wanted her sent here. Chest x-ray at [place] indicated infiltrate and she was thought to have UTI. Rocephin has been started to cover both pneumonia and UTI. Also, breathing treatments and fluids. Alertness has improved during the day after treatment started. Today, Tuesday, she appears depressed. She is awake but uncommunicative. Tuesday, doing much better. She will be discharged to [facility] tomorrow. Exam (Progress Note) - Constitutional Vitals: Period Temp Pulse Resp BP Sys/Bettencourt Pulse Ox Last 24 Hr 97.8 F-98.9 F 87-109 18-20 108-142/51-70 89-100 Exam: General appearance: no acute distress - Respiratory Respiratory exam: Present: clear to auscultation bilaterally - Cardiovascular Cardiovascular exam: Present: regular rate and rhythm - GI/Abdominal GI/Abdominal exam: Present: normal bowel sounds, soft - Extremities Exam Extremities exam: Absent: edema - Neurological Exam Neurological exam: Present: alert today - Psychiatric Psychiatric exam: Present: depressed mood - Skin Skin exam: Present: warm, dry Results - Labs CBC & BMP: 10/03/16 07:09 10/04/16 05:38
[2016-10-04] MEDS: GABITRIL 4 MG PO SCH (22:28)
--- NOTE | 2016-10-04 23:57 | Discharge Summary ---
Hospital Course - Hospital Course Hospital Course: Ms. Jenkins is a 86 year old female with history of stroke, generalized weakness, failure to thrive, recurrent UTI, hypothyroid, HTN, OA, who now resides in custodial. She was sent to [place] for acute change of status/confusion, but family wanted her sent to [place]. Chest x-ray at [place] indicated infiltrate and she was thought to have UTI. Rocephin has been started to cover both pneumonia and UTI. Also, breathing treatments and fluids. Alertness improved with treatment. She is doing better and will be discharged to [facility] for PT/OT. Also, she may benefit from speech therapy. Diagnosis - Discharge Diagnosis (1) Pneumonia Status: Acute (2) Urinary tract infection Status: Resolved (3) Generalized weakness Status: Chronic (4) History of stroke Status: Chronic (5) Hypothyroid Status: Chronic (6) Altered mental status Status: Acute (7) Depressed affect Status: Acute Discharge Plan - Discharge Data Disposition: Disch/Xfer to Snf Condition at Discharge: Stable Discharge Diet: diabetic diet - Discharge Medications New Albuterol/Ipratropium Neb [Duoneb] 3 ml RESP TX RT Q6H Polyvinyl Alcohol 1.4% Oph Becky [Artificial Tears Oph Soln] 1 drop BOTH EYES QID PRN bottle PRN Reason: Dry Eyes Cefuroxime Tab [Ceftin] 250 mg PO BID #20 tablet Continue Levothyroxine Tab [Synthroid Tab] 150 mcg PO DAILY Tiagabine HCl [Gabitril] 4 mg PO BEDTIME clonazePAM TAB [KlonoPIN] 0.5 mg PO BID Gabapentin 100 mg PO BID PARoxetine HCl [Paxil] 30 mg PO DAILY Aspirin [Aspirin EC] 81 mg PO AC BREAKFAST #30 tablet. Potassium Chloride Cap/Tab [K Dur] 20 meq PO BID tablet Insulin Regular [HumuLIN R] See Protocol SUBCUT ACHS - Follow Up or Referral - Forms/Instructions Additional Discharge Instructions: Follow up with Dr. Helga Leon and Dr. Ellie Leon in clinic as needed. Exam - Constitutional Vitals: Period Temp Pulse Resp BP Sys/Bettencourt Pulse Ox Last 24 Hr 97.8 F-99.0 F 87-103 16-20 108-129/51-75 89-100 Exam: General appearance: no acute distress - Respiratory Respiratory exam: Present: clear to auscultation bilaterally - Cardiovascular Cardiovascular exam: Present: regular rate and rhythm - GI/Abdominal GI/Abdominal exam: Present: normal bowel sounds, soft - Extremities Exam Extremities exam: Absent: edema - Neurological Exam Neurological exam: Present: alert - Psychiatric Psychiatric exam: Present: depressed mood - Skin Skin exam: Present: warm, dry Discharge Results Labs on day of discharge: Labs from last 24 hours 10/04/16 10/04/16 10/04/16 22:20 16:04 10:53 Sodium Potassium Chloride Carbon Dioxide Anion Gap BUN Creatinine GFR Calculation BUN/Creatinine Ratio Glucose POC Glucose 230 H 181 H 217 H Calculated Osmolality Calcium Total Bilirubin AST ALT Alkaline Phosphatase Total Protein Albumin Globulin Albumin/Globulin Ratio 10/04/16 10/04/16 07:13 05:38 Sodium 138 Potassium 3.8 Chloride 106 Carbon Dioxide 22 Anion Gap 13.8 BUN 8 Creatinine 0.40 L GFR Calculation 95 BUN/Creatinine Ratio 20.00 Glucose 147 H POC Glucose 185 H Calculated Osmolality 275.7 Calcium 9.0 Total Bilirubin 0.40 AST 22 ALT 30 Alkaline Phosphatase 62 Total Protein 4.6 L Albumin 2.0 L Globulin 2.6 Albumin/Globulin Ratio 0.7 L DS: Provider Date of admission: 09/30/16 12:09 Primary care physician: Jemma Leon DO Attending physician on admission: Jemma Leon DO Consults: 09/30/16 13:02 Consult to Dietitian [CONS] Routine Reason for Dietitian: Other 09/30/16 18:40 Consult to Dietitian [CONS] Routine Reason for Dietitian: Diet Recommendations Consult Comment: protein requirements 10/02/16 13:14 Consult to Physician [CONS] Routine Comment: pneumonia: for tuesday Consulting Provider: Mike Leon Person Notified: Dr. Mora Date Notified: 10/02/16 Time Notified: 13:38 10/02/16 13:16 Consult to Case Mgmt/Social Srvs [CONS] Routine Reason for Case Mgmt/Social Srvs: Discharge Planning Consult Comment: from [facility], family requesting new placement 10/03/16 09:59 Consult to Physical Therapy [CONS] Routine Reason for Physical Therapy: Evaluate and Treat Start Therapy: Today Discharging clinician: Jemma Leon DO Expected date of discharge: 10/05/16
[2016-10-05] MEDS: ALBUTEROL/IPRATROPIUM 3 ML NEB RESP TX SCH ×2 (00:48→07:24)
[2016-10-05] MEDS: methylPREDNISolone SOD SUC 40 MG/1 ML VIAL IV SCH (04:23)
[2016-10-05] MEDS: LEVOTHYROXINE 150 MCG TABLET PO SCH (06:20)
[2016-10-05] MEDS: BUDESONIDE 0.25 MG/2 ML NEB RESP TX SCH (07:24)
--- NOTE | 2016-10-05 09:07 | Pulmonology Progress Note ---
Pulmonary - PN: Subj Interval history: Patient is an 86-year-old white lady from the retirement that has a history of having a previous CVA. She was recently here with some mild pneumonia. She is sent back in with some coughing and chest congestion and altered mental status. She continues to have some left lower lobe infiltrate. There is also question of a small left pleural effusion. She has significant dementia and really cannot give much history. She had a fairly good night and is having less shortness of breath. She is not coughing much now. She is comfortable off of oxygen. She is eating a little bit. She looks like she is breathing comfortably. Exam (Progress Note) - Constitutional Vitals: Period Temp Pulse Resp BP Sys/Bettencourt Pulse Ox Last 24 Hr 97.6 F-99.0 F 74-103 14-20 102-129/51-75 89-98 Exam: General appearance: normal weight, no acute distress, other (She is sitting up and eating a little bit. She is talking a little and looks comfortable.) - Head Head exam: Present: normal inspection, normocephalic - Eye Eye exam: Present: EOMI. Absent: scleral icterus Pupils: Present: JAMES - ENT ENT exam: Present: normal exam - Neck Neck exam: Present: normal inspection. Absent: lymphadenopathy, meningismus, thyromegaly - Respiratory Respiratory exam: Present: She has fairly good breath sounds bilaterally and I do not hear any wheezing now. She does have a weak cough. - Cardiovascular Cardiovascular exam: Present: regular rate and rhythm. Absent: gallop, systolic murmur - GI/Abdominal GI/Abdominal exam: Present: normal bowel sounds, soft. Absent: organomegaly, tenderness - Extremities Exam Extremities exam: Absent: calf tenderness, edema, she has no signs of phlebitis. - Neurological Exam Neurological exam: Present: altered (She does respond and is more alert and looks comfortable.) - Psychiatric Psychiatric exam: Present: flat affect - Skin Skin exam: Present: warm, dry Results - Labs CBC & BMP: 10/03/16 07:09 10/04/16 05:38 Assessment and Plan (1) Multi-infarct dementia Status: Acute Assessment and plan: The patient is quite debilitated and is a retirement patient. She is comfortable in bed and talking a little more. Current Visit: Yes (2) Pneumonia Status: Acute Assessment and plan: The patient continues to have a left lower lobe consolidation. She does not seem to be in any distress now. She looks like she is breathing comfortably. For now she will continue antibiotics and probably go back to the retirement soon. Current Visit: Yes (3) History of stroke Status: Chronic Assessment and plan: The patient has had previous strokes and is not very active. Current Visit: Yes Specialty Discharge - Follow Up or Referrals
[2016-10-05] MEDS ORDERED: MAGNESIUM HYDROXIDE SUSP 30 ML UDCUP PO ONE (09:28)
[2016-10-05] MEDS: PARoxetine 20 MG TABLET PO SCH (09:37)
[2016-10-05] MEDS: POTASSIUM CHLORIDE 20 MEQ TABLET PO SCH (09:37)
[2016-10-05] MEDS: INSULIN REGULAR 100 UNIT/ML SUBCUT SCH ×2 (09:37→11:30)
[2016-10-05] MEDS: ASPIRIN EC 81 MG TABLET PO SCH (09:37)
[2016-10-05] MEDS: clonazePAM 0.5 MG TABLET PO SCH (09:37)
[2016-10-05] MEDS: GABAPENTIN 100 MG CAPSULE PO SCH (09:37)
[2016-10-05] MEDS: DESITIN 4OZ/NYSTATIN 15 GRAM MIXTURE PASTE TOP SCH (09:46)
[2016-10-05] MEDS: AZITHROMYCIN INJ 250 MG in SODIUM CHLORIDE 0.9% 250 ML IV SCH (09:46)
[2016-10-05 11:35] VITALS: BP 120/62
== END 2016-10-05 11:55 | DRG 689 ==
LOC: N.5E 12:09
PROVIDERS: ADMIT Internal Medicine; ATTEND Internal Medicine

== ENCOUNTER 2016-11-07 10:54 | Inpatient (IN) ==
[2016-11-07] MEDS ORDERED: LEVOFLOXACIN INJ 750 MG in PREMIX 1 EACH IV STA (10:59)
[2016-11-07] MEDS ORDERED: SODIUM CHLORIDE 0.9% 1,000 ML IV STA (10:59)
[2016-11-07] MEDS ORDERED: ALBUTEROL 2.5 MG/3 ML NEB RESP TX SCH (11:00)
--- NOTE | 2016-11-07 11:04 | Emergency Department Note ---
Arrival - Arrival Mode of Arrival: Stretcher Limitations: Altered Mental Status Source: Old Records Reviewed Time Seen by Provider: 11/07/16 10:59 - History of Present Illness HPI Narrative: This 86-year-old white female [facility] resident presents after several days of poor intake, failure to thrive, and treatment for pneumonia with Levaquin. The patient is alert but confused and does not respond to questions and can give no cognizant history. Onset (ago): day(s) (Patient presents several days after onset of symptoms) Allergies/Adverse Reactions: Allergies Allergy/AdvReac Type Severity Reaction Status Date / Time fluticasone [From Flonase] AdvReac Unknown/Unable Verified 06/18/16 08:57 to obtain Home Medications: Home Medications Medication Instructions Recorded Confirmed Type Levothyroxine Tab [Synthroid Tab] 150 mcg PO DAILY 09/10/15 11/07/16 History Tiagabine HCl [Gabitril] 4 mg PO BEDTIME 09/10/15 11/07/16 History Gabapentin 100 mg PO BID 08/08/16 11/07/16 History PARoxetine HCl [Paxil] 30 mg PO DAILY 08/08/16 11/07/16 History clonazePAM TAB [KlonoPIN] 0.5 mg PO BID 08/08/16 11/07/16 History Aspirin [Aspirin EC] 81 mg PO AC BREAKFAST #30 tablet. 08/19/16 11/07/16 Rx Potassium Chloride Cap/Tab [K Dur] 20 meq PO BID tablet 09/10/16 11/07/16 Rx Insulin Regular [HumuLIN R] See Protocol SUBCUT ACHS 09/30/16 11/07/16 History Albuterol/Ipratropium Neb [Duoneb] 3 ml RESP TX RT Q6H 10/05/16 11/07/16 Rx Polyvinyl Alcohol 1.4% Oph Becky 1 drop BOTH EYES QID PRN bottle 10/05/16 Rx [Artificial Tears Oph Soln] Acetaminophen 650 mg PO Q6H PRN 11/07/16 11/07/16 History Magnesium Hydroxide [Milk of 30 ml PO DAILY PRN 11/07/16 11/07/16 History Magnesia] Mineral Oil/Petrolat Oph Oint 1 applic BOTH EYES BEDTIME 11/07/16 11/07/16 History [Refresh PM Oph Oint] Propylene Glycol [Systane Balance] 1 drop BOTH EYES TID 11/07/16 11/07/16 History cycloSPORINE OPH EMUL [Restasis] 1 drop BOTH EYES Q12HR 11/07/16 11/07/16 History Review of System - Review of System ROS unobtainable: due to mental status Medical,Surgical,& Family Hx - Medical History Cardio: History of: Cardiac Dysrhythmia (paroxysmal atrial fibrillation), Hypertension, Cardiovascular Problems (high cholesterol) Psychological: History of: Anxiety Disorders Neurology: History of: Cerebrovascular Accident, Seizures, TIA HEENT: History of: Ear Problem ([place]) Endocrine: History of: Diabetes Mellitus (NIDDM), Thyroid Disorder (Graves disease which was treated; now hypothyroid) Respiratory: History of: Pneumonia Genitourinary: History of: Recurring Urinary Tract Infections Gastrointestinal: History of: GERD Musculoskeletal: History of: Musculoskeletal Problems (OA) Reproductive: History of: Reproductive Problems (breast cancer) Other: History of: Cancer (BREAST) - Surgical History HEENT Surgeries: Surgical HX of: Thyroid Surgery Reproductive Surgeries: Comment Only: Breast Surgery (reconstructive surgery r/t breast cancer) - Family History Family History: Reports;: Family Cancer, Family Diabetes, Family Heart Disease, Family Hypertension Denies;: Family Anesthesia Reaction, Family Psychiatric Problems, Family Stroke - Social History Smoking Status: Never smoker Exam Physical Examination: GENERAL: Fragile chronically ill-appearing white female in no acute distress. HEENT: Normocephalic. No trauma. Very dry mucous membranes. EOMI. PERRLA. ENT NML NECK: Supple. No adenopathy. CARDIAC: Regular. No murmurs. Heart rate 100 CHEST: Clear to auscultation. No respiratory distress. O2 sat 94% ABDOMEN: Soft. Nontender. Active bowel sounds. EXTREMITIES: No trauma. Normal ROM. No pedal edema. SKIN: No diaphoresis. No rash. NEURO: Alert but noncommunicative. Motor, vibratory, sensory intact. No focal deficits. Vital Signs: Vital Signs Temperature 98.0 F 11/07/16 11:00 Pulse Rate 86 11/07/16 11:00 Respiratory Rate 18 11/07/16 11:00 Blood Pressure 116/64 11/07/16 11:00 O2 Sat by Pulse Oximetry 99 11/07/16 11:00 Course - Reevaluation(s) Reevaluation #1: Advised patient's family of need for hospitalization for hydration. - Consultations Consultation #1: Discussed with Dr. Bennett who will admit for further evaluation and treatment for Dr. Jemma Leon. Results - Labs CBC & BMP: 11/07/16 11:21 11/07/16 11:21 Labs: I reviewed the laboratory and noted the elevated white blood cell count as well as the severe hypernatremia and evidence of renal azotemia. - Diagnostic Findings Procedure: Chest x-ray: image reviewed by me, report reviewed by me (Improved but persistent left lower lobe pneumonia.) Disposition Clinical Impression: Hypernatremia, Renal azotemia, Resolving pneumonia Case discussed with: patient's family Disposition: Still a Patient Condition: Guarded Time of Disposition: 12:53
--- NOTE | 2016-11-07 11:21 | XRay Report ---
Portable chest Date: 11/07/2016 Clinical history: Shortness of breath Comparison: 10/04/2016 Technique: Portable AP sitting chest Findings: The heart remains enlarged with calcification in the aortic knob. Decreased parenchymal findings in the lungs. However there are residual diffuse parenchymal findings at the left lung base with minimally smaller small left pleural effusion. Postoperative findings in the left axilla with osteopenia and degenerative changes. Impression: Improved CHF/pneumonia. Persistent dense parenchymal findings at the left lung base with smaller small pleural effusion. Continued follow-up chest x-ray may be helpful to document clearing. PROCEDURE INTERPRETED AT [facility] DEPARTMENT OF RADIOLOGY Final Report Signed by: Dr. Neelam Ortega
[2016-11-07 11:45] LABS: INR 1.2; PT Patient Result 12.9 SECS; Partial Thromboplastin Time 22.7 SECS (0-40)
[2016-11-07] MEDS ORDERED: LEVOFLOXACIN INJ 150 ML IV ONE (11:45)
[2016-11-07 11:49] LABS: Basophils % 0.1 % (0.0-0.8); Eosinophils % 0.1 % (0.00-10.9); Hematocrit 33.6 VOL% (35.7-47.0); Hemoglobin 9.2 GM/DL (12.0-16.0); Immature Granulocytes % 1.3 %; Immature Granulocytes Absolute 0.18 #; Lymphocytes # 1.1 10*3/uL (1.4-4.0); Lymphocytes % 8.1 % (21.3-54.2); Mean Corpuscular HGB Conc 27.4 GM/DL (32-36); Mean Corpuscular Hemoglobin 22 PG (27-34); Mean Corpuscular Volume 81.8 FL (87-102); Monocytes # 0.5 10*3/uL (0.11-0.8); Monocytes % 3.8 % (1.7-12.7); NRBC # 0.15 10*3/uL; Neutrophils # 11.8 10*3/uL (1.4-7.4); Neutrophils % 86.6 % (38.7-73.9); Platelet Count 220 T/CUMM (130-400); Red Blood Count 4.11 MC/CUMM (3.8-5.5); Red Cell Distribution Width 19.2 % (9.3-17.3); White Blood Count 13.6 T/CUMM (4-12)
[2016-11-07 11:55] LABS: Band Neutrophils 5 % (0-10); Lymphocytes 13 % (20-55); Segmented Neutrophils 80 % (50-85); Total Cells Counted 100
[2016-11-07 11:56] LABS: Giant Platelets Few; Hypochromasia 1+; Macrocytosis Slight; Ovalocytes Slight; Platelet Estimate Adequate; Polychromasia Slight
[2016-11-07 12:05] LABS: Albumin 2.3 G/DL (3.4-5.0); Bilirubin,Total 0.6 MG/DL (0.2-1.0); Calcium 10.6 MG/DL (8.5-10.1); Osmolality,Calculated 338.8 MOS/KG (273-304); Total Protein 5.5 G/DL (6.4-8.3)
[2016-11-07] MEDS ORDERED: ONDANSETRON 4 MG/2 ML VIAL IV PRN (12:55)
[2016-11-07] MEDS ORDERED: GLUCAGON 1 MG VIAL IM PRN (12:55)
[2016-11-07] MEDS ORDERED: ALBUTEROL/IPRATROPIUM 3 ML NEB RESP TX PRN (12:55)
[2016-11-07] MEDS ORDERED: DEXTROSE 50% 25 GM/50 ML VIAL IV PRN (12:55)
[2016-11-07 13:46] LABS: Apearance,Urine Slightly Hazy (Clear); Bacteria,Urine Occasional /HPF (Few); Bilirubin,Urine Negative (Negative); Blood, Urine Negative (Negative); Glucose,Urine (UA) Negative (Negative); Hyaline Casts,Urine 1 /LPF (0-3); Ketones,Urine Negative (Negative); Mucus,Urine Occasional /LPF (Occasional); Nitrite,Urine Negative (Negative); Protein,Urine Negative; RBC,Urine 7 /HPF (0-4); Squamous Epithelial Cell,Urine Occasional /HPF (0-10); Urine Color Yellow (Yellow); Urine Urobilinogen < 2.0 EU/DL (0.2-1.0); WBC,Urine 53 /HPF (0-6)
[2016-11-07] MEDS: LEVOFLOXACIN INJ 750 MG in PREMIX 1 EACH IV SCH (15:10)
[2016-11-07] MEDS: SODIUM CHLORIDE 0.45% 1,000 ML IV SCH ×3 (15:15→22:02)
[2016-11-07] MEDS: INSULIN REGULAR 100 UNIT/ML SUBCUT SCH ×2 (17:00→22:02)
[2016-11-07] MEDS ORDERED: POLYVINYL ALCOHOL 1.4% OPH SOLN 15 ML BOTTLE BOTH EYES PRN (18:05)
[2016-11-07] MEDS: cycloSPORINE OPH EMUL 1 VIAL BOTH EYES SCH (22:02)
[2016-11-07] MEDS: MINERAL OIL/PETROLATUM OPH OINT 3.5 GM TUBE BOTH EYES SCH (22:02)
[2016-11-08] MEDS: SODIUM CHLORIDE 0.45% 1,000 ML IV SCH ×3 (02:38→09:06)
[2016-11-08] MEDS: LEVOTHYROXINE 150 MCG TABLET PO SCH (06:08)
--- NOTE | 2016-11-08 07:02 | XRay Report ---
XR chest 1V portable Indication: Pneumonia. Chest one view: Comparison 11/07/2016. Obscuration of the left lung base persists unchanged. There is continued coarsening of interstitial both lungs diffusely with stable cardiomegaly, calcified atheromatous disease and previous left axillary surgery. Impression: No change. PROCEDURE INTERPRETED AT [facility] DEPARTMENT OF RADIOLOGY Final Report Signed by: Omer Lyon M.D.
[2016-11-08 08:26] LABS: Calcium 9.3 MG/DL (8.5-10.1); Osmolality,Calculated 326.5 MOS/KG (273-304); Potassium 3.1 MMOL/L (3.5-5.1)
[2016-11-08 08:30] LABS: Basophils % 0.1 % (0.0-0.8); Eosinophils % 0.1 % (0.00-10.9); Hemoglobin 8.6 GM/DL (12.0-16.0); Immature Granulocytes % 1.7 %; Lymphocytes # 1.1 10*3/uL (1.4-4.0); Lymphocytes % 5.8 % (21.3-54.2); Mean Corpuscular HGB Conc 27.7 GM/DL (32-36); Mean Corpuscular Hemoglobin 23 PG (27-34); Mean Corpuscular Volume 81.8 FL (87-102); Mean Platelet Volume 12.5 FL (9.6-12.0); Monocytes # 0.5 10*3/uL (0.11-0.8); Monocytes % 2.8 % (1.7-12.7); NRBC # 0.16 10*3/uL; Neutrophils # 16.2 10*3/uL (1.4-7.4); Neutrophils % 89.5 % (38.7-73.9); Platelet Count 185 T/CUMM (130-400); Red Blood Count 3.79 MC/CUMM (3.8-5.5); Red Cell Distribution Width 19.2 % (9.3-17.3); White Blood Count 18.1 T/CUMM (4-12)
[2016-11-08 08:40] LABS: Macrocytosis 1+; Polychromasia Few
[2016-11-08 08:41] LABS: Elliptocytes 1+
[2016-11-08] MEDS: INSULIN REGULAR 100 UNIT/ML SUBCUT SCH ×4 (09:05→21:09)
[2016-11-08] MEDS: PANTOPRAZOLE 40 MG TABLET PO SCH (09:11)
[2016-11-08] MEDS: cycloSPORINE OPH EMUL 1 VIAL BOTH EYES SCH ×2 (09:11→21:09)
[2016-11-08 10:10] LABS: Hypochromasia 2+
[2016-11-08] MEDS: DESITIN 4OZ/NYSTATIN 15 GRAM MIXTURE PASTE TOP SCH ×2 (11:34→21:09)
[2016-11-08] MEDS: DEXTROSE 5% 1,000 ML IV SCH ×3 (12:05→23:34)
[2016-11-08] MEDS: LEVOFLOXACIN INJ 750 MG in PREMIX 1 EACH IV SCH (12:15)
[2016-11-08] MEDS ORDERED: SODIUM CHLORIDE 0.9% 250 ML IV PRN (13:22)
[2016-11-08] MEDS: POTASSIUM CHLORIDE RIDER 10 MEQ in PREMIX 1 EACH IV PRN ×6 (13:43→23:47)
[2016-11-08] MEDS: ALBUTEROL/IPRATROPIUM 3 ML NEB RESP TX SCH ×2 (13:58→19:05)
--- NOTE | 2016-11-08 16:07 | Neurology Consult Note ---
History of Present Illness History of present illness: Ms. Jenkins is a 86 year old right-handed white lady who is now a [facility] resident with past medical history significant for history of TIAs and stroke affected left body, history of HTN, DM, depression and anxiety, seizure disorder , hypothyroid, hyperlipidemia; had been on Coumadin therapy until recent hemorrhagic brain bleed/stroke; history of GI bleed, OA, UTI, who is a [facility] resident presents after several days of poor intake, failure to thrive, and treatment for pneumonia with Levaquin. The patient is alert but confused and does not respond to questions and cannot provide any history. History basically obtained from the chart. This is her baseline. She is being admitted for possible PEG tube placement. Home Medications Medication Instructions Recorded Confirmed Type Levothyroxine Tab [Synthroid Tab] 150 mcg PO DAILY 09/10/15 11/07/16 History Tiagabine HCl [Gabitril] 4 mg PO BEDTIME 09/10/15 11/07/16 History Gabapentin 100 mg PO BID 08/08/16 11/07/16 History PARoxetine HCl [Paxil] 10 mg PO BEDTIME 08/08/16 11/07/16 History clonazePAM TAB [KlonoPIN] 0.5 mg PO BEDTIME 08/08/16 11/07/16 History Aspirin [Aspirin EC] 81 mg PO AC BREAKFAST #30 tablet. 08/19/16 11/07/16 Rx Potassium Chloride Cap/Tab [K Dur] 20 meq PO BID tablet 09/10/16 11/07/16 Rx Insulin Regular [HumuLIN R] See Protocol SUBCUT ACHS 09/30/16 11/07/16 History Albuterol/Ipratropium Neb [Duoneb] 3 ml RESP TX RT Q6H 10/05/16 11/07/16 Rx Polyvinyl Alcohol 1.4% Oph Becky 1 drop BOTH EYES QID PRN bottle 10/05/16 Rx [Artificial Tears Oph Soln] Acetaminophen 650 mg PO Q6H PRN 11/07/16 11/07/16 History Carvedilol [Coreg] 6.25 mg PO BID 11/07/16 11/07/16 History Magnesium Hydroxide [Milk of 30 ml PO DAILY PRN 11/07/16 11/07/16 History Magnesia] Mineral Oil/Petrolat Oph Oint 1 applic BOTH EYES BEDTIME 11/07/16 11/07/16 History [Refresh PM Oph Oint] Propylene Glycol [Systane Balance] 1 drop BOTH EYES TID 11/07/16 11/07/16 History cycloSPORINE OPH EMUL [Restasis] 1 drop BOTH EYES Q12HR 11/07/16 11/07/16 History sitaGLIPtin [Januvia] 100 mg PO DAILY 11/07/16 11/07/16 History Allergies Allergy/AdvReac Type Severity Reaction Status Date / Time fluticasone [From Flonase] AdvReac Unknown/Unable Verified 06/18/16 08:57 to obtain ROS unobtainable: due to mental status Medical,Surgical,& Family Hx - Medical History Cardio: History of: Cardiac Dysrhythmia (paroxysmal atrial fibrillation), Hypertension, Cardiovascular Problems (high cholesterol) Psychological: History of: Anxiety Disorders Neurology: History of: Cerebrovascular Accident, Seizures, TIA HEENT: History of: Ear Problem ([place]) Endocrine: History of: Diabetes Mellitus (NIDDM), Thyroid Disorder (Graves disease which was treated; now hypothyroid) Respiratory: History of: Pneumonia Genitourinary: History of: Recurring Urinary Tract Infections Gastrointestinal: History of: GERD Musculoskeletal: History of: Musculoskeletal Problems (OA) Reproductive: History of: Reproductive Problems (breast cancer) Other: History of: Cancer (BREAST) - Surgical History HEENT Surgeries: Surgical HX of: Thyroid Surgery Reproductive Surgeries: Comment Only: Breast Surgery (reconstructive surgery r/t breast cancer) - Family History Family History: Reports;: Family Cancer, Family Diabetes, Family Heart Disease, Family Hypertension Denies;: Family Anesthesia Reaction, Family Psychiatric Problems, Family Stroke - Social History Smoking Status: Never smoker Frequency of Alcohol Use: None Type of Drug Use: None Exam - Constitutional Vitals: Period Temp Pulse Resp BP Sys/[place] Pulse Ox Last 24 Hr 96.3 F-97.5 F 89-105 16-20 108-128/53-84 95-100 Exam: GENERAL: Patient is in no acute distress. NECK: Neck is supple. There is no JVD. No carotid bruits present. No thyroid masses. CVS: First and second heart sounds are normal. There is no S3 present. Regular rate and rhythm. RESPIRATORY: Lungs are clear to auscultation without any rales or rhonchi. ABDOMEN: Soft and non-tender. Bowel sounds are present. There is no hepatosplenomegaly. EXT: There is no palpable edema. Peripheral pulses are present. Skin: No rashes Central Nervous system: General: Alert, awake, not following command Speech: None fluent Comprehension: Impaired Facial expressions: Normal Cranial Nerves: Pupils are equally reactive to light. Extraocular movements are intact. No facial asymmetry is seen. Motor: Bulk and Tone is normal. Strength cannot be assessed Sensory: Cannot be assessed Reflexes: Brisk in the left Cerebellar function: Could not do finger to nose and heel to tsai testing. Toes: Equivocal Gait: Cannot be tested Results - Labs CBC & BMP: 11/08/16 07:42 11/08/16 07:42 Assessment and Plan (1) Altered mental status Status: Acute Assessment and plan: This could be multifactorial. Her labs shows pretty high WBC count of 18.1 and high sodium level of 161. UA shows 53 WBCs and she is on Levaquin. It looks like she might have infectious encephalopathy. Current Visit: No Qualifiers: Altered mental status type: delirium Qualified Code(s): R41.0 - Disorientation, unspecified (2) History of stroke Status: Chronic Assessment and plan: Obtain CAT scan without contrast of the head Current Visit: No (3) Generalized weakness Status: Chronic Assessment and plan: Continue current supportive management. Current Visit: No
--- NOTE | 2016-11-08 16:07 | Post Interventional Procedure ---
Pre-op diagnosis: resolving pneumonia, failure to thrive, poor po intake Post-op diagnosis: same Procedure: PICC placement Contrast: noen Flouroscopy: 0.7 min Radiologist: Adeel Ferraro Anesthesia: local Specimens: none sent Estimated blood loss: none Complications: none Condition: stable Description/Findings: 5 Fr dual lumen picc placement done and ready to use Assessment and Plan - Time spent with patient Time spent with patient: Less than 30 minutes
--- NOTE | 2016-11-08 16:11 | Interventional Radiology Rpt ---
IR PICC line insertion, US guide vascular access IR PICC Placement Peripherally-inserted central catheter (PICC) placement using ultrasound and fluoroscopic guidance Ultrasound of the right upper extremity Clinical Information: 86 year-old female admitted from nursing care with failure to thrive, poor p.o. intake, multiple lap abnormalities and difficult venous access. PICC line is requested Physician: Dr. Ferraro Procedure: The patient was advised of the benefits, risks, and alternatives of the procedure and informed consent was obtained. A time out was performed with verification of the patient's name, MRN, site of procedure, and type of procedure to be performed. The patient was positioned in the supine position on the angiographic table. The site was prepped and draped in the usual sterile fashion. Additionally, maximal sterile barrier technique was employed for the procedure. A tribunal member radiograph reveals no relevant abnormality. Ultrasound examination of the right arm demonstrates patent and compressible brachial and basilic veins. The right arm was prepped and draped in the usual sterile fashion. The right basilic vein was again identified. Using ultrasound guidance, a 21 gauge needle was used to access the vein. A permanent ultrasound recording of vascular access was obtained for the patient's record. A 0.018" cope wire was then advanced into the vein. The needle was exchanged for a 5 [place]ian peel-away sheath. A 5 [place]ian double lumen Bard Solo PICC catheter was measured and trimmed to the 41 cm kris. The PICC line was advanced through the sheath and into the central circulation. The catheter tip was positioned at the cavo-atrial junction. The peel-away sheath was then removed. At the conclusion of the procedure, the catheter was secured in place using a Stat-Lock device. A sterile dressing was applied. The lumens aspirate and flush freely. The catheter is ready for immediate use. The patient tolerated the procedure well and was returned to the PRU in stable condition. EBL: < 5 mL. Complications: None. Fluoroscopy time: 0.7 minutes Total number of images for this study: 43 Conclusion: Successful placement of a 5 [place] double lumen Bard Solo power injectable PICC via the right basilic vein. The catheter is ready for immediate use. PROCEDURE INTERPRETED AT [facility] DEPARTMENT OF RADIOLOGY Final Report Signed by: Adeel Ferraro
[2016-11-08 16:49] LABS: Calcium 8.9 MG/DL (8.5-10.1); Magnesium 2.2 MG/DL (1.8-2.4); Potassium 3.1 MMOL/L (3.5-5.1)
--- NOTE | 2016-11-08 18:20 | CT Report ---
Referring physician: Jemma Leon Exam: CT brain without contrast Date: 11/08/2016 Comparison: 09/30/2016 Reason: Alteration of consciousness Technique: Axial images of the head were obtained without the use of contrast. Total DLP was 1025.60 mGy*cm. Findings: No hydrocephalus or midline shift is present. There is no evidence of an acute infarction, recent intracranial hemorrhage or abnormal mass effect. Chronic appearing infarcts in the right basal ganglia/pittman radiata location. Diffuse atrophy and cerebral hypodensities. The osseous structures appear intact. The mastoid air cells and visualized paranasal sinuses are clear. Impression: No acute intracranial abnormality is identified. Persistent atrophy and microvascular disease with chronic right basal ganglia/pittman radiata infarct. The CT exam was performed using one or more of the following dose reduction techniques: Automated exposure control and adjustment of the mA and/or kV according to patient size. PROCEDURE INTERPRETED AT [facility] DEPARTMENT OF RADIOLOGY Final Report Signed by: Dr. Neelam Ortega
--- NOTE | 2016-11-08 19:05 | Internal Med History&Physical ---
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 disturbance (3) Generalized weakness Status: Chronic Current Visit: Yes (4) History of stroke Status: Chronic Current Visit: Yes (5) Hypothyroid Status: Chronic Current Visit: No Qualifiers: Hypothyroidism type: acquired Qualified Code(s): E03.9 - Hypothyroidism, unspecified History of Present Illness Chief complaint: worsening swallowing issues History of present illness: Ms. Jenkins is a 86 year old female with history of hypothyroid, stroke, HTN, DM, acid reflux, who now resides in long-term. She was sent to hospital with worsening dysphagia, and she was found to be significantly dehydrated. Family has decided to have PEG placement. Will consult Dr. Randhawa. Home Medications Medication Instructions Recorded Confirmed Type Levothyroxine Tab [Synthroid Tab] 150 mcg PO DAILY 09/10/15 11/07/16 History Tiagabine HCl [Gabitril] 4 mg PO BEDTIME 09/10/15 11/07/16 History Gabapentin 100 mg PO BID 08/08/16 11/07/16 History PARoxetine HCl [Paxil] 10 mg PO BEDTIME 08/08/16 11/07/16 History clonazePAM TAB [KlonoPIN] 0.5 mg PO BEDTIME 08/08/16 11/07/16 History Aspirin [Aspirin EC] 81 mg PO AC BREAKFAST #30 tablet. 08/19/16 11/07/16 Rx Potassium Chloride Cap/Tab [K Dur] 20 meq PO BID tablet 09/10/16 11/07/16 Rx Insulin Regular [HumuLIN R] See Protocol SUBCUT ACHS 09/30/16 11/07/16 History Albuterol/Ipratropium Neb [Duoneb] 3 ml RESP TX RT Q6H 10/05/16 11/07/16 Rx Polyvinyl Alcohol 1.4% Oph Becky 1 drop BOTH EYES QID PRN bottle 10/05/16 Rx [Artificial Tears Oph Soln] Acetaminophen 650 mg PO Q6H PRN 11/07/16 11/07/16 History Carvedilol [Coreg] 6.25 mg PO BID 11/07/16 11/07/16 History Magnesium Hydroxide [Milk of 30 ml PO DAILY PRN 11/07/16 11/07/16 History Magnesia] Mineral Oil/Petrolat Oph Oint 1 applic BOTH EYES BEDTIME 11/07/16 11/07/16 History [Refresh PM Oph Oint] Propylene Glycol [Systane Balance] 1 drop BOTH EYES TID 11/07/16 11/07/16 History cycloSPORINE OPH EMUL [Restasis] 1 drop BOTH EYES Q12HR 11/07/16 11/07/16 History sitaGLIPtin [Januvia] 100 mg PO DAILY 11/07/16 11/07/16 History Allergies Allergy/AdvReac Type Severity Reaction Status Date / Time fluticasone [From Flonase] AdvReac Unknown/Unable Verified 06/18/16 08:57 to obtain Medical,Surgical,& Family Hx - Medical History Cardio: History of: Cardiac Dysrhythmia (paroxysmal atrial fibrillation), Hypertension, Cardiovascular Problems (high cholesterol) Psychological: History of: Anxiety Disorders Neurology: History of: Cerebrovascular Accident, Seizures, TIA HEENT: History of: Ear Problem ([place]) Endocrine: History of: Diabetes Mellitus (NIDDM), Thyroid Disorder (Graves disease which was treated; now hypothyroid) Respiratory: History of: Pneumonia Genitourinary: History of: Recurring Urinary Tract Infections Gastrointestinal: History of: GERD Musculoskeletal: History of: Musculoskeletal Problems (OA) Reproductive: History of: Reproductive Problems (breast cancer) Other: History of: Cancer (BREAST) - Surgical History HEENT Surgeries: Surgical HX of: Thyroid Surgery Reproductive Surgeries: Comment Only: Breast Surgery (reconstructive surgery r/t breast cancer) - Family History Family History: Reports;: Family Cancer, Family Diabetes, Family Heart Disease, Family Hypertension Denies;: Family Anesthesia Reaction, Family Psychiatric Problems, Family Stroke - Social History Smoking Status: Never smoker Frequency of Alcohol Use: None Type of Drug Use: None Marital Status: Lives With:: long-term Functional capacity: wheelchair bound - Constitutional Constitutional: Present: lethargy, malaise, weakness - EENT Nose, mouth and throat: Present: dysphagia - Cardiovascular Cardiovascular: Absent: chest pain at rest - Gastrointestinal Gastrointestinal: Absent: nausea - Musculoskeletal Musculoskeletal: Present: muscle weakness Exam - Constitutional Vitals: Period Temp Pulse Resp BP Sys/Bettencourt Pulse Ox Last 24 Hr 96.3 F-97.6 F 65-120 16-22 106-128/53-84 95-100 General appearance: no acute distress - Head Head exam: Present: normocephalic - Eye Eye exam: Present: EOMI - Respiratory Respiratory exam: Present: clear to auscultation bilaterally. Absent: rhonchi, wheezes - Cardiovascular Cardiovascular exam: Present: regular rate and rhythm - GI/Abdominal GI/Abdominal exam: Present: normal bowel sounds, soft. Absent: tenderness - Extremities Exam Extremities exam: Absent: edema - Neurological Exam Neurological exam: Present: alert - Psychiatric Psychiatric exam: Present: normal mood - Skin Skin exam: Present: warm, dry Results - Labs CBC & BMP: 11/09/16 04:06 11/09/16 06:33 - EKG EKG shows: sinus rhythm - Diagnostic Findings Procedure: Chest x-ray: report reviewed by me, MRI: report reviewed by me
[2016-11-08] MEDS: MINERAL OIL/PETROLATUM OPH OINT 3.5 GM TUBE BOTH EYES SCH (21:13)
[2016-11-09] MEDS: ALBUTEROL/IPRATROPIUM 3 ML NEB RESP TX SCH ×4 (00:01→20:07)
[2016-11-09] MEDS: POTASSIUM CHLORIDE RIDER 10 MEQ in PREMIX 1 EACH IV PRN ×9 (00:53→21:14)
[2016-11-09] MEDS: DEXTROSE 5% 1,000 ML IV SCH ×4 (04:20→21:14)
[2016-11-09 05:18] LABS: Basophils % 0.2 % (0.0-0.8); Eosinophils % 0.1 % (0.00-10.9); Hematocrit 29.5 VOL% (35.7-47.0); Hemoglobin 8.8 GM/DL (12.0-16.0); Immature Granulocytes % 2.7 %; Immature Granulocytes Absolute 0.52 #; Lymphocytes # 1.1 10*3/uL (1.4-4.0); Lymphocytes % 5.6 % (21.3-54.2); Mean Corpuscular HGB Conc 29.8 GM/DL (32-36); Mean Corpuscular Hemoglobin 24 PG (27-34); Mean Corpuscular Volume 79.5 FL (87-102); Mean Platelet Volume 11.7 FL (9.6-12.0); Monocytes # 0.7 10*3/uL (0.11-0.8); Monocytes % 3.6 % (1.7-12.7); NRBC # 0.13 10*3/uL; Neutrophils # 17.1 10*3/uL (1.4-7.4); Neutrophils % 87.8 % (38.7-73.9); Platelet Count 157 T/CUMM (130-400); Red Blood Count 3.71 MC/CUMM (3.8-5.5); White Blood Count 19.5 T/CUMM (4-12)
[2016-11-09 05:49] LABS: Albumin 1.7 G/DL (3.4-5.0); Bilirubin,Total 0.9 MG/DL (0.2-1.0); Calcium 8.7 MG/DL (8.5-10.1); Potassium 2.8 MMOL/L (3.5-5.1)
[2016-11-09 05:51] LABS: Band Neutrophils 4 % (0-10); Burr Cells Slight; Elliptocytes Few; Giant Platelets Few; Hypochromasia 1+; Lymphocytes 3 % (20-55); Platelet Estimate Normal; Segmented Neutrophils 91 % (50-85); Total Cells Counted 100
[2016-11-09 05:52] LABS: Macrocytosis Slight; Polychromasia Slight
[2016-11-09 06:14] LABS: Apearance,Urine CLEAR (Clear); Bacteria,Urine Occasional /HPF (Few); Bilirubin,Urine Negative (Negative); Blood, Urine Small mg/dL (Negative); Glucose,Urine (UA) 150 mg/dL (Negative); Hyaline Casts,Urine 1 /LPF (0-3); Ketones,Urine Negative (Negative); Mucus,Urine Occasional /LPF (Occasional); Nitrite,Urine Negative (Negative); Protein,Urine Negative; RBC,Urine 13 /HPF (0-4); Squamous Epithelial Cell,Urine Occasional /HPF (0-10); Urine Color Yellow (Yellow); Urine Specific Gravity 1.014 (1.001-1.035); Urine Urobilinogen < 2.0 EU/DL (0.2-1.0); WBC,Urine 44 /HPF (0-6)
[2016-11-09] MEDS: LEVOTHYROXINE 150 MCG TABLET PO SCH ×2 (06:41→09:00)
[2016-11-09] MEDS ORDERED: POLYVINYL ALCOHOL 1.4% OPH SOLN 15 ML BOTTLE BOTH EYES PRN (08:50)
[2016-11-09] MEDS ORDERED: MAGNESIUM HYDROXIDE SUSP 30 ML UDCUP PO PRN (08:50)
[2016-11-09] MEDS: INSULIN REGULAR 100 UNIT/ML SUBCUT SCH ×4 (08:57→21:18)
[2016-11-09] MEDS: ASPIRIN EC 81 MG TABLET PO SCH (08:58)
[2016-11-09] MEDS: CARVEDILOL 6.25 MG TABLET PO SCH ×2 (08:58→21:18)
[2016-11-09] MEDS: PANTOPRAZOLE 40 MG TABLET PO SCH (08:59)
[2016-11-09] MEDS: cycloSPORINE OPH EMUL 1 VIAL BOTH EYES SCH ×4 (08:59→21:16)
[2016-11-09] MEDS: GABAPENTIN 100 MG CAPSULE PO SCH ×2 (08:59→21:18)
[2016-11-09] MEDS: DESITIN 4OZ/NYSTATIN 15 GRAM MIXTURE PASTE TOP SCH ×2 (09:00→21:17)
[2016-11-09] MEDS ORDERED: PROPYLENE GLYCOL BOTH EYES SCH (09:00)
--- NOTE | 2016-11-09 09:03 | Gastrointestinal Consult Note ---
<Azra Crespo - Last Filed: 11/09/16 08:52> Assessment and Plan (1) Failure to thrive Status: Acute Assessment and plan: 11/09-Reports of decreased to no oral intake over last several days with 35 pd wt loss since July. Inability to swallow. Currently with hypernatremia/ hypokalemia. Request for PEG placement. Will continue to monitor at this time and when electrolytes improved will consider PEG placement at that time if consent is given. Plan and addendum to follow by Dr Randhawa. Current Visit: Yes History of Present Illness Chief complaint: Failure to thrive History of present illness: Ms. Jenkins is a 86 year old female who was admitted to the hospital on Tuesday with several days of decreased oral intake as well as treatment for pneumonia. Patient is a poor historian with a history of dementia and no family is available during visit. Information is obtained from chart review however limited information is available at this time as well. Patient reportedly was brought in from the nursing facility where she resides with reports of no oral intake over the last several days. She also came in on Levaquin (started 11/05) for treatment of pneumonia. Patient was discharged from our facility on 10/04 after inpatient stay for changes in mental status and found at that time to have pneumonia as well as a UTI. She was also seen back in July of this year for symptomatic anemia in which she underwent an EGD during that time and was found to have severe erosive esophagitis felt to be the source of her pain and blood in her stool as well as a paraesophageal hernia. Looking back, patient is noted to have had a approximately a 35 pound weight loss since July. Patient has had a head CT with no acute intracranial abnormalities seen, as well as a chest x-ray which shows improving CHF and pneumonia with persistent dense findings in the left lung base. No changes in her chest x-ray on today. Patient is currently with leukocytosis with WBCs at 19,000. She received 1 unit of packed red blood cells on yesterday with an H&H at 11/23. This is essentially unchanged prior to transfusion. She is also noted to have hypernatremia as well as hypokalemia. Albumin level is 1.7 as well as protein level at 4. UA C&S is currently pending as well. She is afebrile since admission. Home Medications Medication Instructions Recorded Confirmed Type Levothyroxine Tab [Synthroid Tab] 150 mcg PO DAILY 09/10/15 11/07/16 History Tiagabine HCl [Gabitril] 4 mg PO BEDTIME 09/10/15 11/07/16 History Gabapentin 100 mg PO BID 08/08/16 11/07/16 History PARoxetine HCl [Paxil] 10 mg PO BEDTIME 08/08/16 11/07/16 History clonazePAM TAB [KlonoPIN] 0.5 mg PO BEDTIME 08/08/16 11/07/16 History Aspirin [Aspirin EC] 81 mg PO AC BREAKFAST #30 tablet. 08/19/16 11/07/16 Rx Potassium Chloride Cap/Tab [K Dur] 20 meq PO BID tablet 09/10/16 11/07/16 Rx Insulin Regular [HumuLIN R] See Protocol SUBCUT ACHS 09/30/16 11/07/16 History Albuterol/Ipratropium Neb [Duoneb] 3 ml RESP TX RT Q6H 10/05/16 11/07/16 Rx Polyvinyl Alcohol 1.4% Oph Becky 1 drop BOTH EYES QID PRN bottle 10/05/16 Rx [Artificial Tears Oph Soln] Acetaminophen 650 mg PO Q6H PRN 11/07/16 11/07/16 History Carvedilol [Coreg] 6.25 mg PO BID 11/07/16 11/07/16 History Magnesium Hydroxide [Milk of 30 ml PO DAILY PRN 11/07/16 11/07/16 History Magnesia] Mineral Oil/Petrolat Oph Oint 1 applic BOTH EYES BEDTIME 11/07/16 11/07/16 History [Refresh PM Oph Oint] Propylene Glycol [Systane Balance] 1 drop BOTH EYES TID 11/07/16 11/07/16 History cycloSPORINE OPH EMUL [Restasis] 1 drop BOTH EYES Q12HR 11/07/16 11/07/16 History sitaGLIPtin [Januvia] 100 mg PO DAILY 11/07/16 11/07/16 History Allergies Allergy/AdvReac Type Severity Reaction Status Date / Time fluticasone [From Flonase] AdvReac Unknown/Unable Verified 06/18/16 08:57 to obtain Medical,Surgical,& Family Hx - Medical History Cardio: History of: Cardiac Dysrhythmia (paroxysmal atrial fibrillation), Hypertension, Cardiovascular Problems (high cholesterol) Psychological: History of: Anxiety Disorders Neurology: History of: Cerebrovascular Accident, Seizures, TIA HEENT: History of: Ear Problem ([place]) Endocrine: History of: Diabetes Mellitus (NIDDM), Thyroid Disorder (Graves disease which was treated; now hypothyroid) Respiratory: History of: Pneumonia Genitourinary: History of: Recurring Urinary Tract Infections Gastrointestinal: History of: GERD Musculoskeletal: History of: Musculoskeletal Problems (OA) Reproductive: History of: Reproductive Problems (breast cancer) Other: History of: Cancer (BREAST) - Surgical History HEENT Surgeries: Surgical HX of: Thyroid Surgery Reproductive Surgeries: Comment Only: Breast Surgery (reconstructive surgery r/t breast cancer) - Family History Family History: Reports;: Family Cancer, Family Diabetes, Family Heart Disease, Family Hypertension Denies;: Family Anesthesia Reaction, Family Psychiatric Problems, Family Stroke - Social History Smoking Status: Never smoker Frequency of Alcohol Use: None Type of Drug Use: None ROS unobtainable: due to mental status Exam - Constitutional Vitals: Period Temp Pulse Resp BP Sys/Bettencourt Pulse Ox Last 24 Hr 96.4 F-97.6 F 65-120 18-24 105-128/53-70 98-100 General appearance: normal weight, no acute distress - Head Head exam: Present: normal inspection, normocephalic - Eye Eye exam: Present: other (Lids and conjunctive are unremarkable). Absent: scleral icterus - ENT ENT exam: Present: normal exam, normal oropharynx - Neck Neck exam: Present: normal inspection - Respiratory Respiratory exam: Present: clear to auscultation bilaterally. Absent: rales, rhonchi, wheezes - Cardiovascular Cardiovascular exam: Present: regular rate and rhythm. Absent: diastolic murmur , JVD, systolic murmur - GI/Abdominal GI/Abdominal exam: Present: normal bowel sounds, soft. Absent: ascites, distended, mass, organomegaly, tenderness - Extremities Exam Extremities exam: Present: normal inspection, full ROM - Back Exam Back exam: Present: normal inspection - Neurological Exam Neurological exam: Present: altered - Psychiatric Psychiatric exam: Present: other - Skin Skin exam: Present: normal color, warm, dry Results - Labs CBC & BMP: 11/09/16 04:06 11/09/16 06:33 Lab Results: I have reviewed the past 24 hour labs - Diagnostic Findings Procedure: Chest x-ray: report reviewed by me <Suhas Randhawa - Last Filed: 11/09/16 10:18> History of Present Illness History of present illness: Ms. Jenkins is a 86 year old female Exam - Constitutional Vitals: Period Temp Pulse Resp BP Sys/Bettencourt Pulse Ox Last 24 Hr 96.4 F-97.6 F 65-120 18-24 105-128/53-70 98-100 Results - Labs CBC & BMP: 11/09/16 04:06 11/09/16 06:33
[2016-11-09] MEDS: LEVOFLOXACIN INJ 750 MG in PREMIX 1 EACH IV SCH (12:14)
--- NOTE | 2016-11-09 13:19 | Physician Query Form ---
CLICK EDIT DOCUMENT TO SELECT QUERY ANSWER --> OK --> SIGN Rosa Maria Mcneill RN Clinical [employer]aster W) [phone] (f) [phone] [email or web address]: Make your selection(s) from the choices in EACH section by typing an "x" and enter comments in the comment section. Please use your independent medical judgment in providing your response. This request does not imply that any particular answer is desired or expected. CLINICAL INDICATORS: (Providers should not edit this section) Height: 5'6" Weight: 128 Interactive Media Director BMI: 20.8 Nutritional supplements: Special Education Teacher notes: "inadequate intake for 3 months or greater. Loss of 25 lbs or 16.3% of body weight over past 60 days" Other clinical notes: Based on documentation of decreased to no oral intake. 35 pound weight loss since July" Albumin 1.7, Protein level at 4. Based on the above, which following choice most accurately represents the patient's nutritional status? (x ) Malnutrition ( ) mild ( ) moderate (x ) severe (x ) Protein calorie malnutrition ( ) mild ( ) moderate ( x) severe ( ) Emaciation due to malnutrition ( ) Nutritional marasmus ( x) Cachexia ( ) Underweight ( ) No nutritional deficiency ( ) Other, please specify: ( ) Clinically unable to determine Mild Malnutrition (BMI < 18.5, % Normal Body Weight 85-95%) Moderate Malnutrition (BMI < 17, % Normal Body Weight 75-85%) Severe Malnutrition (BMI < 16, % Normal Body Weight < 75%) Source: Afsaneh COMMENTS: PLEASE ALSO DOCUMENT RESPONSE IN PROGRESS NOTES AND/OR DISCHARGE SUMMARY Use of terms such as suspected, likely, or probable (associated with a specific diagnosis that is being evaluated, monitored, or treated as if it exists) are acceptable and can be restated in the discharge summary if not ruled out. MTDD
--- NOTE | 2016-11-09 15:39 | Neurology Progress Note ---
Neurology - PN : Subjective Interval history: Patient seems to be doing okay and about the same. No new problems reported. She is awaiting for PEG tube placement hopefully tomorrow morning. White counts are 19.1 and serum sodium has come down to 150. Exam (Progress Note) - Constitutional Vitals: Period Temp Pulse Resp BP Sys/Bettencourt Pulse Ox Last 24 Hr 97.1 F-97.7 F 65-120 18-24 102-128/54-70 97-100 Exam: GENERAL: Patient is in no acute distress. NECK: Neck is supple. There is no JVD. No carotid bruits present. No thyroid masses. CVS: First and second heart sounds are normal. There is no S3 present. Regular rate and rhythm. RESPIRATORY: Lungs are clear to auscultation without any rales or rhonchi. ABDOMEN: Soft and non-tender. Bowel sounds are present. There is no hepatosplenomegaly. EXT: There is no palpable edema. Peripheral pulses are present. Skin: No rashes Central Nervous system: General: Alert, awake, not following command Speech: None fluent Comprehension: Impaired Facial expressions: Normal Cranial Nerves: Pupils are equally reactive to light. Extraocular movements are intact. No facial asymmetry is seen. Motor: Bulk and Tone is normal. Strength cannot be assessed Sensory: Cannot be assessed Reflexes: Brisk in the left Cerebellar function: Could not do finger to nose and heel to tsai testing. Toes: Equivocal Gait: Cannot be tested Results - Labs CBC & BMP: 11/09/16 04:06 11/09/16 06:33 Assessment and Plan (1) Altered mental status Status: Acute Assessment and plan: This could be multifactorial. Likely infectious/metabolic encephalopathy. Continue current management. Current Visit: No Qualifiers: Altered mental status type: delirium Qualified Code(s): R41.0 - Disorientation, unspecified (2) History of stroke Status: Chronic Assessment and plan: No evidence of new stroke on the CT scan. Continue aspirin a day Current Visit: Yes (3) Generalized weakness Status: Chronic Assessment and plan: Continue current supportive management. Current Visit: Yes
[2016-11-09] MEDS ORDERED: FLUCONAZOLE INJ 200 MG in PREMIX 1 EACH IV ONE (17:59)
--- NOTE | 2016-11-09 18:13 | Internal Med Progress Note ---
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 disturbance (3) Generalized weakness Status: Chronic Current Visit: Yes (4) History of stroke Status: Chronic Current Visit: Yes (5) Portia albicans infection Status: Acute Current Visit: Yes (6) Decubitus ulcer Status: Chronic Current Visit: Yes Qualifiers: Pressure ulcer location: sacral region Pressure ulcer stage: stage 3 Qualified Code(s): L89.153 - Pressure ulcer of sacral region, stage 3 (7) Failure to thrive Status: Chronic Current Visit: Yes Qualifiers: Failure to thrive age range: in adult Qualified Code(s): R62.7 - Adult failure to thrive Internal Medicine - PN: Subj Interval history: Ms. Jenkins is a 86 year old female with history of hypothyroid, stroke, HTN, DM, acid reflux, who now resides in correction. She was sent to hospital with worsening dysphagia, and she was found to be significantly dehydrated. Family has decided to have PEG placement. Will consult Dr. Randhawa. She was resting comfortably when seen on rounds. Found out today about stage III decubitus sacral ulcer. Discontinued levaquin and started Clindamycin. Consulted Dr. Diallo for wound care and probable surgical debridement. She has had elevated WBC and chronic anemia. Hyperglycemia. Will transfuse the held unit pRBC. Spoke with pharmacy about TPN per PICC line. Will have TPN until decubitus ulceration has been seen about. Urine has grown out Portia. Will start Diflucan. Exam (Progress Note) - Constitutional Vitals: Period Temp Pulse Resp BP Sys/Bettencourt Pulse Ox Last 24 Hr 97.1 F-97.7 F 73-120 18-24 102-128/57-70 97-100 General appearance: no acute distress - Respiratory Respiratory exam: Present: clear to auscultation bilaterally - Cardiovascular Cardiovascular exam: Present: regular rate and rhythm - GI/Abdominal GI/Abdominal exam: Present: normal bowel sounds, soft - Extremities Exam Extremities exam: Absent: edema - Neurological Exam Neurological exam: Present: alert - Psychiatric Psychiatric exam: Present: normal mood - Skin Skin exam: Present: warm, dry Results - Labs CBC & BMP: 11/09/16 04:06 11/09/16 16:53
[2016-11-09] MEDS ORDERED: INSULIN GLARGINE 100 UNIT/ML SUBCUT SCH (18:14)
[2016-11-09] MEDS: CLINDAMYCIN INJ 600 MG in PREMIX 1 EACH IV SCH (18:39)
[2016-11-09] MEDS: MULTIVITAMIN INJ 10 ML, TRACE ELEMENTS (5) 1 ML in AMINO ACIDS/DEXT/LYTES 5-15% 2,000 ML IV SCH (20:27)
[2016-11-09] MEDS: NYSTATIN 500,000 UNIT/5 ML UDCUP SWISH/SWAL SCH (21:15)
[2016-11-09] MEDS: MINERAL OIL/PETROLATUM OPH OINT 3.5 GM TUBE BOTH EYES SCH ×2 (21:16)
[2016-11-09] MEDS: clonazePAM 0.5 MG TABLET PO SCH (21:18)
[2016-11-09] MEDS ORDERED: SODIUM CHLORIDE 0.9% 250 ML IV PRN (22:47)
[2016-11-10] MEDS: ALBUTEROL/IPRATROPIUM 3 ML NEB RESP TX SCH ×4 (00:24→19:35)
[2016-11-10] MEDS: CLINDAMYCIN INJ 600 MG in PREMIX 1 EACH IV SCH ×3 (01:58→17:10)
[2016-11-10 05:49] LABS: Calcium 8.7 MG/DL (8.5-10.1); Osmolality,Calculated 283.7 MOS/KG (273-304); Potassium 3.6 MMOL/L (3.5-5.1)
[2016-11-10] MEDS: DEXTROSE 5% 1,000 ML IV SCH (06:22)
[2016-11-10] MEDS: GABAPENTIN 100 MG CAPSULE PO SCH ×2 (08:05→22:24)
[2016-11-10] MEDS: CARVEDILOL 6.25 MG TABLET PO SCH ×2 (08:05→22:23)
[2016-11-10] MEDS: PANTOPRAZOLE 40 MG TABLET PO SCH (08:05)
[2016-11-10] MEDS: ASPIRIN EC 81 MG TABLET PO SCH (08:05)
[2016-11-10] MEDS: LEVOTHYROXINE 150 MCG TABLET PO SCH (08:06)
[2016-11-10 08:32] LABS: Basophils % 0.2 % (0.0-0.8); Eosinophils % 0.1 % (0.00-10.9); Hematocrit 34.3 VOL% (35.7-47.0); Hemoglobin 10.5 GM/DL (12.0-16.0); Immature Granulocytes % 4.3 %; Immature Granulocytes Absolute 0.78 #; Lymphocytes # 1.5 10*3/uL (1.4-4.0); Lymphocytes % 8.1 % (21.3-54.2); Mean Corpuscular HGB Conc 30.6 GM/DL (32-36); Mean Corpuscular Hemoglobin 24 PG (27-34); Mean Corpuscular Volume 78.9 FL (87-102); Mean Platelet Volume 11.7 FL (9.6-12.0); Monocytes # 0.8 10*3/uL (0.11-0.8); Monocytes % 4.4 % (1.7-12.7); NRBC # 0.07 10*3/uL; Neutrophils % 82.9 % (38.7-73.9); Platelet Count 132 T/CUMM (130-400); Red Blood Count 4.35 MC/CUMM (3.8-5.5); White Blood Count 18.1 T/CUMM (4-12)
[2016-11-10] MEDS ORDERED: CHLORHEXIDINE 4% SOLN 118 ML BOTTLE TOP ONE (08:59)
--- NOTE | 2016-11-10 09:02 | General Surgery Consult Note ---
Assessment and Plan - Time spent with patient Time spent with patient: Greater than 30 minutes (1) Decubitus ulcer Status: Chronic Assessment and plan: Impression: Sacral decubitus ulcer unstageable Plan: Attempt to rotate and offload as much as possible. Will start Santyl to the central ulcer and maybe a little Aquaphor around the edges with Adaptic and a large sacral pad. Current Visit: Yes Qualifiers: Pressure ulcer location: sacral region Pressure ulcer stage: unspecified pressure ulcer stage Qualified Code(s): L89.159 - Pressure ulcer of sacral region, unspecified stage (2) Altered mental status Status: Acute Assessment and plan: Impression: Altered mental status etiology unclear at this time. Current Visit: No Qualifiers: Altered mental status type: delirium Qualified Code(s): R41.0 - Disorientation, unspecified (3) History of stroke Status: Chronic Assessment and plan: Impression: History of CVAs Current Visit: Yes (4) Diabetes Status: Acute Assessment and plan: Impression: Diabetes [id number] Current Visit: Yes (5) Malnutrition Status: Acute Assessment and plan: Impression: Malnutrition. Plan: Continue present tube feedings Current Visit: Yes Qualifiers: Malnutrition type: protein-calorie malnutrition Protein-calorie malnutrition severity: moderate Qualified Code(s): E44.0 - Moderate protein- calorie malnutrition History of Present Illness Chief complaint: Sacral decubitus ulcer History of present illness: Ms. Jenkins is a 86 year old female white who is in a longterm with multiple medical problems came in because of altered mental status and failure to thrive. She has a to be in for feedings and we were asked to see for a sacral ulcer. She is fairly thin as obvious areas of potential breakdown at this time. The sacral area which we were asked to see as a unstageable ulcer at this point that still looks fairly superficial in nature. It almost looks like it could be an abrasion to it is hard to tell. At this point I do not see a need for any extensive debridement but will try some Santyl on the central part of it see what changes take place over little bit of time. We will need to do some protective care to the rest of her hips and heels in order to prevent further breakdown she is very vulnerable for additional ulcerations. Home Medications Medication Instructions Recorded Confirmed Type Levothyroxine Tab [Synthroid Tab] 150 mcg PO DAILY 09/10/15 11/07/16 History Tiagabine HCl [Gabitril] 4 mg PO BEDTIME 09/10/15 11/07/16 History Gabapentin 100 mg PO BID 08/08/16 11/07/16 History PARoxetine HCl [Paxil] 10 mg PO BEDTIME 08/08/16 11/07/16 History clonazePAM TAB [KlonoPIN] 0.5 mg PO BEDTIME 08/08/16 11/07/16 History Aspirin [Aspirin EC] 81 mg PO AC BREAKFAST #30 tablet. 08/19/16 11/07/16 Rx Potassium Chloride Cap/Tab [K Dur] 20 meq PO BID tablet 09/10/16 11/07/16 Rx Insulin Regular [HumuLIN R] See Protocol SUBCUT ACHS 09/30/16 11/07/16 History Albuterol/Ipratropium Neb [Duoneb] 3 ml RESP TX RT Q6H 10/05/16 11/07/16 Rx Polyvinyl Alcohol 1.4% Oph Becky 1 drop BOTH EYES QID PRN bottle 10/05/16 Rx [Artificial Tears Oph Soln] Acetaminophen 650 mg PO Q6H PRN 11/07/16 11/07/16 History Carvedilol [Coreg] 6.25 mg PO BID 11/07/16 11/07/16 History Magnesium Hydroxide [Milk of 30 ml PO DAILY PRN 11/07/16 11/07/16 History Magnesia] Mineral Oil/Petrolat Oph Oint 1 applic BOTH EYES BEDTIME 11/07/16 11/07/16 History [Refresh PM Oph Oint] Propylene Glycol [Systane Balance] 1 drop BOTH EYES TID 11/07/16 11/07/16 History cycloSPORINE OPH EMUL [Restasis] 1 drop BOTH EYES Q12HR 11/07/16 11/07/16 History sitaGLIPtin [Januvia] 100 mg PO DAILY 11/07/16 11/07/16 History Allergies Allergy/AdvReac Type Severity Reaction Status Date / Time fluticasone [From Flonase] AdvReac Unknown/Unable Verified 06/18/16 08:57 to obtain Medical,Surgical,& Family Hx - Medical History Cardio: History of: Cardiac Dysrhythmia (paroxysmal atrial fibrillation), Hypertension, Cardiovascular Problems (high cholesterol) Psychological: History of: Anxiety Disorders Neurology: History of: Cerebrovascular Accident, Seizures, TIA HEENT: History of: Ear Problem ([place]) Endocrine: History of: Diabetes Mellitus (NIDDM), Thyroid Disorder (Graves disease which was treated; now hypothyroid) Respiratory: History of: Pneumonia Genitourinary: History of: Recurring Urinary Tract Infections Gastrointestinal: History of: GERD Musculoskeletal: History of: Musculoskeletal Problems (OA) Reproductive: History of: Reproductive Problems (breast cancer) Other: History of: Cancer (BREAST) - Surgical History HEENT Surgeries: Surgical HX of: Thyroid Surgery Reproductive Surgeries: Comment Only: Breast Surgery (reconstructive surgery r/t breast cancer) - Family History Family History: Reports;: Family Cancer, Family Diabetes, Family Heart Disease, Family Hypertension Denies;: Family Anesthesia Reaction, Family Psychiatric Problems, Family Stroke - Social History Smoking Status: Never smoker Frequency of Alcohol Use: None Type of Drug Use: None ROS unobtainable: due to mental status Exam - Constitutional Vitals: Period Temp Pulse Resp BP Sys/Bettencourt Pulse Ox Last 24 Hr 97.0 F-98.9 F 78-99 16-24 94-121/53-72 96-100 General appearance: mild distress - Head Head exam: Present: normal inspection - ENT ENT exam: Present: normal exam - Neck Neck exam: Present: normal inspection - Respiratory Respiratory exam: Present: rales, rhonchi - Cardiovascular Cardiovascular exam: Present: RRR - GI/Abdominal GI/Abdominal exam: Present: hypoactive bowel sounds, soft, other (Gastrostomy tube in place). Absent: tenderness - Extremities Exam Extremities exam: Present: other (Both lower extremities are without significant edema and no evidence of any breakdown on the heels although there is little redness there. There is also some redness on both hips at this time but no breakdown.) - Back Exam Back exam: Present: normal inspection, other (Sacral area with what looks like a second moderate changes around this area and a central area of some whitish tissue present where the skin has been broken down. No clear infection or fluid under it at this time.) - Neurological Exam Neurological exam: Present: altered - Skin Skin exam: Present: normal color, warm, dry Results - Labs CBC & BMP: 11/10/16 08:25 11/10/16 04:24 Lab Results: I have reviewed the past 24 hour labs
[2016-11-10 09:23] LABS: Burr Cells 2+; Lymphocytes 8 % (20-55); Platelet Estimate Adequate; Segmented Neutrophils 89 % (50-85); Target Cells 1+; Total Cells Counted 100
[2016-11-10] MEDS: FLUCONAZOLE INJ 100 MG in IV BAG 1 EACH IV SCH (09:28)
[2016-11-10] MEDS: INSULIN GLARGINE 100 UNIT/ML SUBCUT SCH (09:32)
[2016-11-10] MEDS: DESITIN 4OZ/NYSTATIN 15 GRAM MIXTURE PASTE TOP SCH ×2 (09:33→21:45)
[2016-11-10] MEDS: INSULIN REGULAR 100 UNIT/ML SUBCUT SCH ×4 (09:34→21:59)
[2016-11-10] MEDS: NYSTATIN 500,000 UNIT/5 ML UDCUP SWISH/SWAL SCH ×4 (09:34→22:35)
[2016-11-10] MEDS: SODIUM CHLORIDE 0.45% 1,000 ML IV SCH ×2 (09:34→22:42)
[2016-11-10] MEDS: cycloSPORINE OPH EMUL 1 VIAL BOTH EYES SCH ×4 (09:35→22:27)
--- NOTE | 2016-11-10 09:46 | Gastrointestinal Progress Note ---
<DuanepawelroryAzra Lindsay - Last Filed: 11/10/16 09:44> Assessment and Plan (1) Failure to thrive Status: Chronic Assessment and plan: 11/10-no changes at present time. TPN infusing. Surgery has been consulted for wound management. No decision at this time on proceeding with PEG placement. Plan an addendum to follow by Dr. Randhawa. 11/09-Reports of decreased to no oral intake over last several days with 35 pd wt loss since July. Inability to swallow. Currently with hypernatremia/ hypokalemia. Request for PEG placement. Will continue to monitor at this time and when electrolytes improved will consider PEG placement at that time if consent is given. Plan and addendum to follow by Dr Randhawa. Current Visit: Yes Qualifiers: Failure to thrive age range: in adult Qualified Code(s): R62.7 - Adult failure to thrive Gastroenterology - PN: Subj Interval history: CC: Failure to thrive Patient is seen, asleep in bed. She will open her eyes to verbal stimuli but does not respond. No family is present during visit today. Nursing staff at bedside however states uncertain as to family's decision to proceed with PEG tube. Patient is noted to have continued leukocytosis with WBCs at 18,000. She has TPN initiated. Dr. Diallo is consulted with patient for decubitus ulcer and is providing wound care at this time. She is afebrile. Abdomen is soft, nontender. ROS: No acute distress noted at present time Exam (Progress Note) - Constitutional Vitals: Period Temp Pulse Resp BP Sys/Bettencourt Pulse Ox Last 24 Hr 97.0 F-98.9 F 78-99 16-24 94-121/53-72 96-100 General appearance: normal weight, no acute distress - Head Head exam: Present: normal inspection, normocephalic - Eye Eye exam: Present: other (Lids and conjunctive are unremarkable). Absent: scleral icterus - ENT ENT exam: Present: normal exam, normal oropharynx - Neck Neck exam: Present: normal inspection - Respiratory Respiratory exam: Present: clear to auscultation bilaterally. Absent: rales, rhonchi, wheezes - Cardiovascular Cardiovascular exam: Present: regular rate and rhythm. Absent: diastolic murmur , JVD, systolic murmur - GI/Abdominal GI/Abdominal exam: Present: normal bowel sounds, soft. Absent: ascites, distended, mass, organomegaly, tenderness - Extremities Exam Extremities exam: Present: normal inspection, full ROM - Back Exam Back exam: Present: normal inspection - Neurological Exam Neurological exam: Present: alert, altered - Psychiatric Psychiatric exam: Present: other - Skin Skin exam: Present: normal color, warm, dry Results - Labs CBC & BMP: 11/10/16 08:25 11/10/16 04:24 Lab Results: I have reviewed the past 24 hour labs <Suhas Randhawa - Last Filed: 11/10/16 10:42> Exam (Progress Note) - Constitutional Vitals: Period Temp Pulse Resp BP Sys/Bettencourt Pulse Ox Last 24 Hr 97.0 F-98.9 F 78-99 16-24 94-121/53-72 96-100 Results - Labs CBC & BMP: 11/10/16 08:25 11/10/16 04:24
[2016-11-10] MEDS: COLLAGENASE OINT 30 GM TUBE TOP SCH (10:19)
[2016-11-10] MEDS: SKIN HEALING OINT (AQUAPHOR) 50 GM TUBE TOP PRN (10:19)
[2016-11-10] MEDS: FAT EMULSION 20% 250 ML IV SCH (13:29)
[2016-11-10] MEDS: LIDOCAINE 5% PATCH TRANSDERM SCH (17:30)
--- NOTE | 2016-11-10 18:11 | Internal Med Progress Note ---
Assessment and Plan (1) Dehydration Status: Resolved Current Visit: Yes (2) Multi-infarct dementia Status: Chronic Current Visit: Yes Qualifiers: Dementia behavioral disturbance: without behavioral disturbance Qualified Code(s): F01.50 - Vascular dementia without behavioral disturbance (3) Generalized weakness Status: Chronic Current Visit: Yes (4) History of stroke Status: Chronic Current Visit: Yes (5) Portia albicans infection Status: Acute Current Visit: Yes (6) Decubitus ulcer Status: Chronic Current Visit: Yes Qualifiers: Pressure ulcer location: sacral region Pressure ulcer stage: unspecified pressure ulcer stage Qualified Code(s): L89.159 - Pressure ulcer of sacral region, unspecified stage (7) Failure to thrive Status: Chronic Current Visit: Yes Qualifiers: Failure to thrive age range: in adult Qualified Code(s): R62.7 - Adult failure to thrive Internal Medicine - PN: Subj Interval history: Ms. Jenkins is a 86 year old female with history of hypothyroid, stroke, HTN, DM, acid reflux, who now resides in [facility]. She was sent to hospital with worsening dysphagia, and she was found to be significantly dehydrated. Family has decided to have PEG placement. Will consult Dr. Randhawa. She was resting comfortably when seen on rounds. Found out today about stage III decubitus sacral ulcer. Discontinued levaquin and started Clindamycin. Consulted Dr. Diallo for wound care and probable surgical debridement. She has had elevated WBC and chronic anemia. Hyperglycemia. Will transfuse the held unit pRBC. Spoke with pharmacy about TPN per PICC line. Will have TPN until decubitus ulceration has been seen about. Urine has grown out Portia. Will start Diflucan. She is more alert, but TPN will be adjusted today. Spoke with daughter at bedside. Exam (Progress Note) - Constitutional Vitals: Period Temp Pulse Resp BP Sys/Bettencourt Pulse Ox Last 24 Hr 97.0 F-98.9 F 80-99 16-24 92-121/49-72 96-100 General appearance: no acute distress - Respiratory Respiratory exam: Present: clear to auscultation bilaterally - Cardiovascular Cardiovascular exam: Present: regular rate and rhythm - GI/Abdominal GI/Abdominal exam: Present: soft. Absent: tenderness - Extremities Exam Extremities exam: Absent: edema - Neurological Exam Neurological exam: Present: alert - Psychiatric Psychiatric exam: Present: normal affect Results - Labs CBC & BMP: 11/10/16 08:25 11/11/16 05:17
[2016-11-10] MEDS: MULTIVITAMIN INJ 10 ML, TRACE ELEMENTS (5) 1 ML in AMINO ACIDS/DEXT/LYTES 5-15% 2,000 ML IV SCH (20:16)
[2016-11-10] MEDS: MINERAL OIL/PETROLATUM OPH OINT 3.5 GM TUBE BOTH EYES SCH ×2 (22:00→22:26)
[2016-11-10] MEDS: clonazePAM 0.5 MG TABLET PO SCH (22:24)
[2016-11-11] MEDS: ALBUTEROL/IPRATROPIUM 3 ML NEB RESP TX SCH ×4 (01:40→21:20)
[2016-11-11] MEDS: CLINDAMYCIN INJ 600 MG in PREMIX 1 EACH IV SCH ×3 (03:35→17:48)
[2016-11-11 06:45] LABS: Calcium 8.4 MG/DL (8.5-10.1); Osmolality,Calculated 284.3 MOS/KG (273-304); Phosphorous 2.1 MG/DL (2.5-4.9); Prealbumin 10.7 MG/DL (20-40)
[2016-11-11] MEDS: ASPIRIN EC 81 MG TABLET PO SCH (07:13)
[2016-11-11] MEDS: POTASSIUM CHLORIDE RIDER 10 MEQ in PREMIX 1 EACH IV PRN ×5 (07:40→12:37)
[2016-11-11] MEDS: GABAPENTIN 100 MG CAPSULE PO SCH (08:07)
[2016-11-11] MEDS: PANTOPRAZOLE 40 MG TABLET PO SCH (08:07)
[2016-11-11] MEDS: CARVEDILOL 6.25 MG TABLET PO SCH (08:07)
[2016-11-11] MEDS: INSULIN REGULAR 100 UNIT/ML SUBCUT SCH ×4 (08:07→22:58)
[2016-11-11] MEDS: LEVOTHYROXINE 150 MCG TABLET PO SCH (08:07)
[2016-11-11] MEDS: INSULIN GLARGINE 100 UNIT/ML SUBCUT SCH (08:43)
[2016-11-11] MEDS: cycloSPORINE OPH EMUL 1 VIAL BOTH EYES SCH ×3 (08:44→21:27)
[2016-11-11] MEDS: NYSTATIN 500,000 UNIT/5 ML UDCUP SWISH/SWAL SCH ×4 (08:44→21:26)
[2016-11-11] MEDS: COLLAGENASE OINT 30 GM TUBE TOP SCH (08:44)
[2016-11-11] MEDS: SKIN HEALING OINT (AQUAPHOR) 50 GM TUBE TOP PRN (08:45)
[2016-11-11] MEDS: DESITIN 4OZ/NYSTATIN 15 GRAM MIXTURE PASTE TOP SCH ×2 (08:45→21:09)
[2016-11-11] MEDS: FLUCONAZOLE INJ 100 MG in IV BAG 1 EACH IV SCH (09:45)
[2016-11-11] MEDS: LIDOCAINE 5% PATCH TRANSDERM SCH (10:20)
[2016-11-11] MEDS: SODIUM CHLORIDE 0.45% 1,000 ML IV SCH (10:22)
[2016-11-11] MEDS: FAT EMULSION 20% 250 ML IV SCH (13:50)
[2016-11-11] MEDS ORDERED: SODIUM PHOSPHATE INJ 15 MMOL in SODIUM CHLORIDE 0.9% 250 ML IV ONE (14:00)
--- NOTE | 2016-11-11 20:08 | Internal Med Progress Note ---
Assessment and Plan (1) Dehydration Status: Resolved Current Visit: Yes (2) Multi-infarct dementia Status: Chronic Current Visit: Yes Qualifiers: Dementia behavioral disturbance: without behavioral disturbance Qualified Code(s): F01.50 - Vascular dementia without behavioral disturbance (3) Generalized weakness Status: Chronic Current Visit: Yes (4) History of stroke Status: Chronic Current Visit: Yes (5) Portia albicans infection Status: Acute Current Visit: Yes (6) Decubitus ulcer Status: Chronic Current Visit: Yes Qualifiers: Pressure ulcer location: sacral region Pressure ulcer stage: unspecified pressure ulcer stage Qualified Code(s): L89.159 - Pressure ulcer of sacral region, unspecified stage (7) Failure to thrive Status: Chronic Current Visit: Yes Qualifiers: Failure to thrive age range: in adult Qualified Code(s): R62.7 - Adult failure to thrive Internal Medicine - PN: Subj Interval history: Ms. Jenkins is a 86 year old female with history of hypothyroid, stroke, HTN, DM, acid reflux, who now resides in alf. She was sent to hospital with worsening dysphagia, and she was found to be significantly dehydrated. Family has decided to have PEG placement. Will consult Dr. Randhawa. She was resting comfortably when seen on rounds. Found out today about stage III decubitus sacral ulcer. Discontinued levaquin and started Clindamycin. Consulted Dr. Diallo for wound care and probable surgical debridement. She has had elevated WBC and chronic anemia. Hyperglycemia. Will transfuse the held unit pRBC. Spoke with pharmacy about TPN per PICC line. Will have TPN until decubitus ulceration has been seen about. Urine has grown out Portia. Will start Diflucan. She is more alert and attempting to talk today. Exam (Progress Note) - Constitutional Vitals: Period Temp Pulse Resp BP Sys/Bettencourt Pulse Ox Last 24 Hr 97.8 F-99.8 F 73-87 16-22 75-102/43-66 95-100 Exam: General appearance: no acute distress - Respiratory Respiratory exam: Present: clear to auscultation bilaterally - Cardiovascular Cardiovascular exam: Present: regular rate and rhythm - GI/Abdominal GI/Abdominal exam: Present: soft. Absent: tenderness - Extremities Exam Extremities exam: Absent: edema - Neurological Exam Neurological exam: Present: alert - Psychiatric Psychiatric exam: Present: normal affect Results - Labs CBC & BMP: 11/10/16 08:25 11/11/16 05:17
[2016-11-11] MEDS: MULTIVITAMIN INJ 10 ML, TRACE ELEMENTS (5) 1 ML in AMINO ACIDS/DEXT/LYTES 5-15% 2,000 ML IV SCH (20:33)
[2016-11-11] MEDS: MINERAL OIL/PETROLATUM OPH OINT 3.5 GM TUBE BOTH EYES SCH (21:28)
[2016-11-12] MEDS: CARVEDILOL 3.125 MG TABLET PO SCH ×3 (00:47→20:51)
[2016-11-12] MEDS: clonazePAM 0.5 MG TABLET PO SCH ×2 (00:48→20:52)
[2016-11-12] MEDS: GABAPENTIN 100 MG CAPSULE PO SCH ×3 (00:49→20:52)
[2016-11-12] MEDS: MINERAL OIL/PETROLATUM OPH OINT 3.5 GM TUBE BOTH EYES SCH ×3 (00:49→20:52)
[2016-11-12] MEDS: cycloSPORINE OPH EMUL 1 VIAL BOTH EYES SCH ×4 (00:49→20:49)
[2016-11-12] MEDS: ALBUTEROL/IPRATROPIUM 3 ML NEB RESP TX SCH ×5 (02:37→23:55)
[2016-11-12] MEDS: SODIUM CHLORIDE 0.45% 1,000 ML IV SCH ×3 (03:38→20:55)
[2016-11-12] MEDS: CLINDAMYCIN INJ 600 MG in PREMIX 1 EACH IV SCH ×3 (03:39→17:29)
[2016-11-12 05:53] LABS: Basophils % 0.3 % (0.0-0.8); Eosinophils # 0.1 10*3/uL (0.0-0.87); Eosinophils % 0.9 % (0.00-10.9); Hemoglobin 8.9 GM/DL (12.0-16.0); Immature Granulocytes Absolute 0.86 #; Lymphocytes # 0.8 10*3/uL (1.4-4.0); Lymphocytes % 6.8 % (21.3-54.2); Mean Corpuscular HGB Conc 31.8 GM/DL (32-36); Mean Corpuscular Hemoglobin 25 PG (27-34); Mean Corpuscular Volume 78.4 FL (87-102); Monocytes # 0.6 10*3/uL (0.11-0.8); Monocytes % 5.2 % (1.7-12.7); NRBC # 0.03 10*3/uL; Neutrophils # 9.8 10*3/uL (1.4-7.4); Neutrophils % 79.8 % (38.7-73.9); Platelet Count 123 T/CUMM (130-400); Red Blood Count 3.57 MC/CUMM (3.8-5.5); White Blood Count 12.3 T/CUMM (4-12)
[2016-11-12 06:27] LABS: Band Neutrophils 2 % (0-10); Eosinophils 1 % (0-10); Lymphocytes 5 % (20-55); Myelocytes 1 %; Platelet Estimate Normal; Segmented Neutrophils 89 % (50-85); Total Cells Counted 100
[2016-11-12 06:28] LABS: Giant Platelets Few; Hypochromasia 1+; Macrocytosis Slight; Ovalocytes Slight; Polychromasia Slight
[2016-11-12 06:40] LABS: Albumin 1.3 G/DL (3.4-5.0); Bilirubin,Total 1.3 MG/DL (0.2-1.0); Calcium 8.5 MG/DL (8.5-10.1); Osmolality,Calculated 287.1 MOS/KG (273-304); Potassium 3.4 MMOL/L (3.5-5.1); Total Protein 3.5 G/DL (6.4-8.3)
--- NOTE | 2016-11-12 08:41 | General Surgery Progress Note ---
Assessment and Plan - Time spent with patient Time spent with patient: Less than 30 minutes (1) Decubitus ulcer Status: Chronic Assessment and plan: 11/12/16 Unstageable decubitus ulcer of the sacrum without progression or signs of infection. This appears to be slowly autolytically and chemically debriding, and with the degree of stool soiling, she will probably be best served to continue this method rather than formal surgical debridement. Her other pressure areas have been offloaded appropriately and there is no sign of progression. The family is still considering the issue of PEG. We will continue following, but no surgery is planned for the sacrum/coccyx area at this point. Current Visit: Yes Qualifiers: Pressure ulcer location: sacral region Pressure ulcer stage: unspecified pressure ulcer stage Qualified Code(s): L89.159 - Pressure ulcer of sacral region, unspecified stage Subjective Patient reports: Present: other (Pt awakens to my voice but makes no effort to communicate verbally.) Exam - Constitutional Vitals: Period Temp Pulse Resp BP Sys/Bettencourt Pulse Ox Last 24 Hr 97.8 F-98.7 F 64-84 16-20 102-116/47-60 94-100 General appearance: no acute distress - ENT Mouth exam: Present: dry mucosa - Respiratory Respiratory exam: Absent: rales, wheezes - Extremities Exam Extremities exam: Present: other (Bilateral lower extremities-TEDs in place with some degree of cording but without pressure changes to heels; calves soft, toes warm to touch, pink and blancheable. ) - Back Exam Back exam: Present: other (Sacral area is moister with some loosening of the slough; still difficult to stage due to stool soiling and adherent slough but there does not appear to be any progression, no fluctuance or unusual induration , no advancing erythematous change to suggest infection. ) Results - Labs CBC & BMP: 11/12/16 04:28 11/12/16 04:28 Lab Results: I have reviewed the past 24 hour labs
[2016-11-12] MEDS: ASPIRIN EC 81 MG TABLET PO SCH (08:47)
[2016-11-12] MEDS: PANTOPRAZOLE 40 MG TABLET PO SCH (08:48)
[2016-11-12] MEDS: DESITIN 4OZ/NYSTATIN 15 GRAM MIXTURE PASTE TOP SCH ×2 (08:49→20:47)
[2016-11-12] MEDS: LEVOTHYROXINE 150 MCG TABLET PO SCH (08:49)
[2016-11-12] MEDS: NYSTATIN 500,000 UNIT/5 ML UDCUP SWISH/SWAL SCH ×4 (08:51→20:54)
[2016-11-12] MEDS: INSULIN GLARGINE 100 UNIT/ML SUBCUT SCH (08:51)
[2016-11-12] MEDS: FLUCONAZOLE INJ 100 MG in IV BAG 1 EACH IV SCH (08:51)
[2016-11-12] MEDS: LIDOCAINE 5% PATCH TRANSDERM SCH (08:52)
[2016-11-12] MEDS: COLLAGENASE OINT 30 GM TUBE TOP SCH (08:53)
[2016-11-12] MEDS: INSULIN REGULAR 100 UNIT/ML SUBCUT SCH ×4 (08:57→20:46)
[2016-11-12] MEDS: FAT EMULSION 20% 250 ML IV SCH (14:09)
[2016-11-12] MEDS ORDERED: POTASSIUM PHOSPHATE 15 MMOL in SODIUM CHLORIDE 0.9% 100 ML IV ONE (15:00)
--- NOTE | 2016-11-12 22:01 | Internal Med Progress Note ---
Assessment and Plan (1) Dehydration Status: Resolved Current Visit: Yes (2) Multi-infarct dementia Status: Chronic Current Visit: Yes Qualifiers: Dementia behavioral disturbance: without behavioral disturbance Qualified Code(s): F01.50 - Vascular dementia without behavioral disturbance (3) Generalized weakness Status: Chronic Current Visit: Yes (4) History of stroke Status: Chronic Current Visit: Yes (5) Portia albicans infection Status: Acute Current Visit: Yes (6) Decubitus ulcer Status: Chronic Current Visit: Yes Qualifiers: Pressure ulcer location: sacral region Pressure ulcer stage: unspecified pressure ulcer stage Qualified Code(s): L89.159 - Pressure ulcer of sacral region, unspecified stage (7) Failure to thrive Status: Chronic Current Visit: Yes Qualifiers: Failure to thrive age range: in adult Qualified Code(s): R62.7 - Adult failure to thrive Internal Medicine - PN: Subj Interval history: Ms. Jenkins is a 86 year old female with history of hypothyroid, stroke, HTN, DM, acid reflux, who now resides in alf. She was sent to hospital with worsening dysphagia, and she was found to be significantly dehydrated. Family has decided to have PEG placement. Will consult Dr. Randhawa. She was resting comfortably when seen on rounds. Found out today about stage III decubitus sacral ulcer. Discontinued levaquin and started Clindamycin. Consulted Dr. Diallo for wound care and probable surgical debridement. She has had elevated WBC and chronic anemia. Hyperglycemia. Will transfuse the held unit pRBC. She is on TPN and more alert. Will address PEG placement with family on Tuesday. Exam (Progress Note) - Constitutional Vitals: Period Temp Pulse Resp BP Sys/Bettencourt Pulse Ox Last 24 Hr 97.5 F-99.4 F 64-90 16-22 114-125/49-77 92-100 Exam: General appearance: no acute distress - Respiratory Respiratory exam: Present: clear to auscultation bilaterally - Cardiovascular Cardiovascular exam: Present: regular rate and rhythm - GI/Abdominal GI/Abdominal exam: Present: soft. Absent: tenderness - Extremities Exam Extremities exam: Absent: edema - Neurological Exam Neurological exam: Present: alert - Psychiatric Psychiatric exam: Present: normal affect Results - Labs CBC & BMP: 11/12/16 04:28 11/12/16 04:28
[2016-11-13] MEDS: MORPHINE 2 MG/1 ML SYRINGE IV PRN ×4 (00:51→22:23)
[2016-11-13] MEDS: CLINDAMYCIN INJ 600 MG in PREMIX 1 EACH IV SCH ×4 (01:49→17:29)
[2016-11-13] MEDS: MULTIVITAMIN INJ 10 ML, TRACE ELEMENTS (5) 1 ML in AMINO ACIDS/DEXT/LYTES 5-15% 2,000 ML IV SCH (01:55)
[2016-11-13 06:50] LABS: Basophils % 0.2 % (0.0-0.8); Eosinophils # 0.1 10*3/uL (0.0-0.87); Eosinophils % 1.1 % (0.00-10.9); Hematocrit 28.7 VOL% (35.7-47.0); Hemoglobin 9.1 GM/DL (12.0-16.0); Immature Granulocytes % 5.7 %; Immature Granulocytes Absolute 0.62 #; Lymphocytes # 0.8 10*3/uL (1.4-4.0); Lymphocytes % 7.4 % (21.3-54.2); Mean Corpuscular HGB Conc 31.7 GM/DL (32-36); Mean Corpuscular Hemoglobin 25 PG (27-34); Mean Corpuscular Volume 79.1 FL (87-102); Mean Platelet Volume 11.2 FL (9.6-12.0); Monocytes # 0.8 10*3/uL (0.11-0.8); NRBC # 0.02 10*3/uL; Neutrophils # 8.6 10*3/uL (1.4-7.4); Neutrophils % 78.6 % (38.7-73.9); Platelet Count 134 T/CUMM (130-400); Red Blood Count 3.63 MC/CUMM (3.8-5.5); Red Cell Distribution Width 19.3 % (9.3-17.3); White Blood Count 10.9 T/CUMM (4-12)
[2016-11-13 07:11] LABS: Phosphorous 2.2 MG/DL (2.5-4.9); Potassium 3.7 MMOL/L (3.5-5.1)
[2016-11-13 07:31] LABS: Band Neutrophils 1 % (0-10); Lymphocytes 9 % (20-55); Segmented Neutrophils 86 % (50-85); Total Cells Counted 100
[2016-11-13 07:32] LABS: Hypochromasia 1+; Microcytosis 1+; Ovalocytes Slight; Platelet Estimate Adequate
[2016-11-13] MEDS: ALBUTEROL/IPRATROPIUM 3 ML NEB RESP TX SCH ×3 (07:33→18:59)
--- NOTE | 2016-11-13 07:39 | Family Practice Progress Note ---
Family Practice - PN: Subj Interval history: Patient is unresponsive to me this morning and family is not present. She is awake and has spontaneous movement on the right only. Exam (Progress Note) - Constitutional Vitals: Period Temp Pulse Resp BP Sys/Bettencourt Pulse Ox Last 24 Hr 97.5 F-99.4 F 76-94 16-22 114-128/56-77 92-100 Exam: Objective a well-developed white female does not respond to verbal stimuli. She is noted to have spontaneous movement on the right only. Cardiovascular: Heart rates are regular with no murmurs or gallops. Respiratory: Patient has no rales or rhonchi Abdomen: Abdomen soft and nontender to palpation. Results - Labs CBC & BMP: 11/13/16 06:28 11/13/16 06:28 Lab Results: I have reviewed the past 24 hour labs Assessment and Plan (1) History of stroke Status: Chronic Assessment and plan: 11/13/2016: Family to decide about feeding tube Current Visit: Yes (2) Failure to thrive Status: Chronic Assessment and plan: 11/13/2016: Patient's nutritional status is declining. Current Visit: Yes Qualifiers: Failure to thrive age range: in adult Qualified Code(s): R62.7 - Adult failure to thrive
[2016-11-13] MEDS: LIDOCAINE 5% PATCH TRANSDERM SCH (09:56)
[2016-11-13] MEDS: INSULIN GLARGINE 100 UNIT/ML SUBCUT SCH (09:57)
[2016-11-13] MEDS: INSULIN REGULAR 100 UNIT/ML SUBCUT SCH ×4 (09:57→20:46)
[2016-11-13] MEDS: POTASSIUM CHLORIDE RIDER 10 MEQ in PREMIX 1 EACH IV PRN ×2 (09:58→11:28)
[2016-11-13] MEDS: COLLAGENASE OINT 30 GM TUBE TOP SCH (09:59)
[2016-11-13] MEDS: DESITIN 4OZ/NYSTATIN 15 GRAM MIXTURE PASTE TOP SCH ×2 (09:59→20:48)
[2016-11-13] MEDS: cycloSPORINE OPH EMUL 1 VIAL BOTH EYES SCH ×2 (10:00→20:48)
[2016-11-13] MEDS: SODIUM CHLORIDE 0.45% 1,000 ML IV SCH (10:03)
[2016-11-13] MEDS: FLUCONAZOLE INJ 100 MG in IV BAG 1 EACH IV SCH (10:03)
[2016-11-13] MEDS: FAT EMULSION 20% 250 ML IV SCH (14:55)
[2016-11-13] MEDS: MINERAL OIL/PETROLATUM OPH OINT 3.5 GM TUBE BOTH EYES SCH ×2 (20:47)
[2016-11-14] MEDS: ALBUTEROL/IPRATROPIUM 3 ML NEB RESP TX SCH ×4 (00:26→19:08)
[2016-11-14] MEDS: SODIUM CHLORIDE 0.45% 1,000 ML IV SCH ×3 (01:29→18:13)
[2016-11-14] MEDS: CLINDAMYCIN INJ 600 MG in PREMIX 1 EACH IV SCH ×3 (01:31→17:10)
[2016-11-14] MEDS ORDERED: DEXTROSE 50% 25 GM/50 ML SYRINGE IV PRN (02:30)
[2016-11-14] MEDS: INSULIN REGULAR 100 UNIT/ML SUBCUT SCH ×4 (07:30→21:54)
[2016-11-14] MEDS ORDERED: LORazepam 2 MG/1 ML VIAL IV PRN (07:48)
--- NOTE | 2016-11-14 07:51 | Family Practice Progress Note ---
Family Practice - PN: Subj Interval history: Patient continues to decline in her blood pressure is low this morning. Family has decided against tube feedings and wanted her transferred to the senior care with hospice. I certainly think this is a compassionate plan. We will place her on comfort measures only. She does have morphine ordered and I will add Ativan for any anxiety. Exam (Progress Note) - Constitutional Vitals: Period Temp Pulse Resp BP Sys/Bettencourt Pulse Ox Last 24 Hr 97.0 F-97.9 F 67-90 18-22 82-135/36-69 94-100 Exam: Objective a well-developed white female does not respond to verbal stimuli. She is less responsive today than yesterday. Cardiovascular: Heart rates are regular with no murmurs or gallops. Respiratory: Patient has no rales or rhonchi Abdomen: Abdomen soft and nontender to palpation. Results - Labs CBC & BMP: 11/13/16 06:28 11/13/16 06:28 Lab Results: I have reviewed the past 24 hour labs Assessment and Plan (1) History of stroke Status: Chronic Assessment and plan: 11/13/2016: Family to decide about feeding tube Current Visit: Yes (2) Failure to thrive Status: Chronic Assessment and plan: 11/13/2016: Patient's nutritional status is declining. 11/14/2016: Patient continues to decline and family has requested hospice only. Comfort measures will be provided. Current Visit: Yes Qualifiers: Failure to thrive age range: in adult Qualified Code(s): R62.7 - Adult failure to thrive
[2016-11-14] MEDS: INSULIN GLARGINE 100 UNIT/ML SUBCUT SCH (09:11)
[2016-11-14] MEDS: FLUCONAZOLE INJ 100 MG in IV BAG 1 EACH IV SCH (09:16)
[2016-11-14] MEDS: MULTIVITAMIN INJ 10 ML, TRACE ELEMENTS (5) 1 ML in AMINO ACIDS/DEXT/LYTES 5-15% 2,000 ML IV SCH ×2 (09:16→21:54)
[2016-11-14] MEDS: COLLAGENASE OINT 30 GM TUBE TOP SCH (09:19)
[2016-11-14] MEDS: LIDOCAINE 5% PATCH TRANSDERM SCH (09:19)
[2016-11-14] MEDS: cycloSPORINE OPH EMUL 1 VIAL BOTH EYES SCH ×2 (09:19→21:55)
[2016-11-14] MEDS: DESITIN 4OZ/NYSTATIN 15 GRAM MIXTURE PASTE TOP SCH ×2 (09:19→21:55)
[2016-11-14] MEDS: MORPHINE 2 MG/1 ML SYRINGE IV PRN ×2 (10:54→16:18)
[2016-11-14] MEDS: FAT EMULSION 20% 250 ML IV SCH (13:34)
[2016-11-14] MEDS: MINERAL OIL/PETROLATUM OPH OINT 3.5 GM TUBE BOTH EYES SCH ×2 (21:54→21:55)
[2016-11-15] MEDS: ALBUTEROL/IPRATROPIUM 3 ML NEB RESP TX SCH ×3 (00:12→13:59)
[2016-11-15] MEDS: CLINDAMYCIN INJ 600 MG in PREMIX 1 EACH IV SCH ×2 (03:45→09:52)
[2016-11-15] MEDS: INSULIN REGULAR 100 UNIT/ML SUBCUT SCH ×2 (08:01→13:18)
[2016-11-15] MEDS: INSULIN GLARGINE 100 UNIT/ML SUBCUT SCH (08:01)
[2016-11-15] MEDS: FLUCONAZOLE INJ 100 MG in IV BAG 1 EACH IV SCH (09:51)
[2016-11-15] MEDS: LIDOCAINE 5% PATCH TRANSDERM SCH (09:52)
[2016-11-15] MEDS: DESITIN 4OZ/NYSTATIN 15 GRAM MIXTURE PASTE TOP SCH (09:52)
[2016-11-15] MEDS: cycloSPORINE OPH EMUL 1 VIAL BOTH EYES SCH (09:52)
[2016-11-15] MEDS: COLLAGENASE OINT 30 GM TUBE TOP SCH (09:52)
[2016-11-15] MEDS: SODIUM CHLORIDE 0.45% 1,000 ML IV SCH (11:03)
[2016-11-15 13:12] VITALS: BP 116/45
--- NOTE | 2016-11-15 13:51 | Discharge Summary ---
Hospital Course - Hospital Course Hospital Course: Ms. Jenkins is a 86 year old female with history of hypothyroid, stroke, HTN, DM, acid reflux, who now resides in long-term. She was sent to hospital with worsening dysphagia, and she was found to be significantly dehydrated. Family has decided to have PEG placement. Will consult Dr. Randhawa. She was resting comfortably when seen on rounds. Found out today about stage III decubitus sacral ulcer. Discontinued levaquin and started Clindamycin. Consulted Dr. Diallo for wound care and probable surgical debridement. She has had elevated WBC and chronic anemia. Hyperglycemia. Will transfuse the held unit pRBC. She continued to decline over the weekend and family decided upon comfort measures and Hospice. She had a few days on TPN, but this was discontinued as decline progressed. She will be discharged back to [facility] today. Diagnosis - Discharge Diagnosis (1) Dehydration Status: Resolved (2) Multi-infarct dementia Status: Chronic (3) Generalized weakness Status: Chronic (4) History of stroke Status: Chronic (5) Portia albicans infection Status: Acute (6) Decubitus ulcer Status: Chronic (7) Failure to thrive Status: Chronic Discharge Plan - Discharge Data Disposition: Hospice - Medical Facility Condition at Discharge: Guarded Discharge Diet: other (comfort measures only) Activity: other (bedbound) - Discharge Medications New Polyvinyl Alcohol 1.4% Oph Becky [Artificial Tears Oph Soln] 1 drop BOTH EYES QID PRN bottle PRN Reason: Dry Eyes Skin Healing Oint (Aquaphor) [Aquaphor] 1 applic TOP PRN PRN applic PRN Reason: Dry Skin Continue Polyvinyl Alcohol 1.4% Oph Becky [Artificial Tears Oph Soln] 1 drop BOTH EYES QID PRN bottle PRN Reason: Dry Eyes Mineral Oil/Petrolat Oph Oint [Refresh PM Oph Oint] 1 applic BOTH EYES BEDTIME Discontinued Levothyroxine Tab [Synthroid Tab] 150 mcg PO DAILY Tiagabine HCl [Gabitril] 4 mg PO BEDTIME clonazePAM TAB [KlonoPIN] 0.5 mg PO BEDTIME Gabapentin 100 mg PO BID PARoxetine HCl [Paxil] 10 mg PO BEDTIME Aspirin [Aspirin EC] 81 mg PO AC BREAKFAST #30 tablet. Potassium Chloride Cap/Tab [K Dur] 20 meq PO BID tablet Albuterol/Ipratropium Neb [Duoneb] 3 ml RESP TX RT Q6H Propylene Glycol [Systane Balance] 1 drop BOTH EYES TID Acetaminophen 650 mg PO Q6H PRN PRN Reason: Fever, Headache, Mild Pain Carvedilol [Coreg] 6.25 mg PO BID Insulin Regular [HumuLIN R] See Protocol SUBCUT ACHS Magnesium Hydroxide [Milk of Magnesia] 30 ml PO DAILY PRN PRN Reason: Constipation cycloSPORINE OPH EMUL [Restasis] 1 drop BOTH EYES Q12HR sitaGLIPtin [Januvia] 100 mg PO DAILY - Follow Up or Referral - Forms/Instructions Exam - Constitutional Vitals: Period Temp Pulse Resp BP Sys/[place] Pulse Ox Last 24 Hr 97.2 F-97.8 F 60-86 15- 97-133/45-81 2-99 Discharge Results Labs on day of discharge: Labs from last 24 hours 11/15/16 11/15/16 11/15/16 11:32 09:11 07:57 POC Glucose 108 H 124 H 57 L 11/15/16 07:13 POC Glucose 44 L* DS: Provider Date of admission: 11/07/16 12:54 Primary care physician: Jemma Leno DO Attending physician on admission: Jemma Leon DO Consults: 11/08/16 09:58 Consult to Dietitian [CONS] Routine Reason for Dietitian: Dietary Consult 11/08/16 11:45 Consult to Case Mgmt/Social Srvs [CONS] Routine Reason for Case Mgmt/Social Srvs: Other Consult Comment: Please speak with family concerning nutritional/hydration care. Poss peg. 11/08/16 11:46 Consult to Physical Therapy [CONS] Routine Reason for Physical Therapy: Evaluate and Treat 11/08/16 11:48 Consult to Physician [CONS] Routine Comment: Consulting Provider: Tuan Maciel Consult to Specialist Group: Neurology When should Consulting Provider be notified: Now Consult Notification Comment: LEFT MESSAGE W/OFFICE AT 1200 MYNOR RETURNED CALL ON CONSULT 11/08/16 19:09 Consult to Physician [CONS] Routine Comment: PEG placement; dysphagia and stroke patient Consulting Provider: Suhas Randhawa Consult to Specialist Group: Gastroenterology Person Notified: DEMETRIUS Date Notified: 11/09/16 Time Notified: 07:45 11/08/16 19:10 Consult to Dietitian [CONS] Routine Reason for Dietitian: Diet Recommendations Consult Comment: will need PEG placement and tube feedings; failure to thrive 11/09/16 18:03 Consult to Physician [CONS] Routine Comment: wound care; sacral decubitus ulcer stage III Consulting Provider: Alon Diallo Consult to Specialist Group: Surgery 11/09/16 18:12 Consult to Dietitian [CONS] Routine Reason for Dietitian: Diet Recommendations Consult Comment: protein requirements; TPN 11/10/16 08:06 Consult to Wound Care - [place] [CONS] Routine Reason for Wound Care: Wound Care Management 11/13/16 15:15 Consult to Case Mgmt/Social Srvs [CONS] Routine Reason for Case Mgmt/Social Srvs: Hospice Referral Consult Comment: Family wants [place] hospice Discharging clinician: Jemma Leon DO Expected date of discharge: 11/15/16
[2016-11-15] MEDS: FAT EMULSION 20% 250 ML IV SCH (14:21)
== END 2016-11-15 16:45 | disposition hospice, inpatient (51) | DRG 640 ==
LOC: EDBD → EDUNIT# → N.ED 10:54 → N.2E 12:54 → N.TELES 14:05 → N.5E 11-12 18:55
PROVIDERS: ADMIT Internal Medicine; ATTEND Internal Medicine